=== PATIENT | female | born 1940 | race Caucasian/White ===

== ENCOUNTER → 2016-08-04 | Outpatient (CLI) | payer MEDICARE, MEDICAID | LOC: RAD 10:19 | DX: R13.13 Dysphagia, pharyngeal phase (principal); R13.14 Dysphagia, pharyngoesophageal phase; R47.02 Dysphasia | CPT/HCPCS: 71020 ==

== ENCOUNTER → 2016-10-10 | Outpatient (CLI) | payer MEDICARE, MEDICAID | LOC: RAD 09:58 | DX: M25.521 Pain in right elbow (principal); M25.522 Pain in left elbow; S09.90XA Unspecified injury of head, initial encounter; X58.XXXA Exposure to other specified factors, initial encounter | CPT/HCPCS: 70250 ==

== ENCOUNTER → 2016-10-16 | Outpatient (CLI) | payer MEDICARE, MEDICAID | LOC: WI 09:40 | DX: Z12.31 Encounter for screening mammogram for malignant neoplasm of breast (principal) | CPT/HCPCS: 77067; G0202 ==

== ENCOUNTER → 2017-01-29 | Outpatient (CLI) | payer MEDICARE, MEDICAID ==
--- NOTE | 2017-01-29 13:43 | RADIOLOGY REPORT (SQ) ---
EXAM DESCRIPTION: L SPINE 2 VIEWS COMPLETED DATE/TIME: 01/29/2017 1:05 pm REASON FOR STUDY: PAIN (R52) COMPARISON: 11/28/2010 NUMBER OF VIEWS: Two views. TECHNIQUE: AP and lateral radiographic images acquired of the lumbar spine. LIMITATIONS: None. FINDINGS: MINERALIZATION: Normal. SEGMENTATION: Normal. No transitional anatomy. ALIGNMENT: Normal. VERTEBRAE: 50% compression deformity L1 vertebral body, unchanged from 11/28/2010 DISCS: Disc space loss of height with vertebral body endplate sclerosis throughout the lumbar spine POSTERIOR ELEMENTS: Bilateral facet arthropathy throughout the lumbar spine most pronounced at L4-5 a nd L5-S1 HARDWARE: None in the spine. PARASPINAL SOFT TISSUES: Normal. PELVIS: Not included in the field of view. SI joints unremarkable. OTHER: No other significant finding. IMPRESSION: Chronic L1 50% compression deformity, similar compared to 2010. No new lumbar wedge compression deformity. Diffuse degenerative disc changes and facet arthropathy TECHNICAL DOCUMENTATION: JOB ID: [id number] [employer]- All Rights Reserved
== END ==
LOC: RAD 12:40
DX: R52 Pain, unspecified (principal)
CPT/HCPCS: 72100

== ENCOUNTER → 2017-02-22 | Outpatient (CLI) | payer MEDICARE, MEDICAID ==
--- NOTE | 2017-02-22 11:05 | RADIOLOGY REPORT (SQ) ---
EXAM DESCRIPTION: SKULL 1-3 VIEWS COMPLETED DATE/TIME: 02/22/2017 10:39 am REASON FOR STUDY: PAIN (R52) R52 PAIN, UNSPECIFIED COMPARISON: Skull films 10/10/2016, 03/23/2015, 02/27/2012 CT brain 02/27/2016, 03/31/2015, 04/16/2015 NUMBER OF VIEWS: Four view. TECHNIQUE: Images of the facial bones and calvarium acquired, AP, Dinah's, right lateral, left later al view. LIMITATIONS: None. FINDINGS: ORBITS: No fracture. No foreign body. SINUSES: No mucosal thickening. No air fluid levels. FACIAL BONES: No fracture. OTHER: No other significant finding. IMPRESSION: NO FOREIGN BODY OR FRACTURE OF THE FACIAL BONES. TECHNICAL DOCUMENTATION: JOB ID: [id number]- All Rights Reserved
== END ==
LOC: RAD 10:20
DX: R51 Headache (principal)
CPT/HCPCS: 70250

== ENCOUNTER 2017-10-17 13:22 | Observation (INO) | payer MEDICARE, MEDICAID ==
[2017-10-17] MEDS ORDERED: ASPIRIN 81 MG TABLET, CHEWABLE PO ONE (13:37)
--- NOTE | 2017-10-17 14:12 | ER Document Report ---
ED Cardiac - General Chief Complaint: Chest Pain > 30 Stated Complaint: CHEST PAIN Time Seen by Provider: 10/17/17 14:02 Notes: The patient is a 77-year-old female, past medical history hypertension, presents with 5 days of intermittent right lower chest pain that is worse when she takes deep breaths. She mentioned that she had a brief episode of left upper chest pain that has resolved. She had this 2 years ago and she thinks she had a negative heart cath at [facility]. Patient denies increased leg swelling, hemoptysis, fevers, back pain, nausea, vomiting, syncope, headache or radiation of pain. TRAVEL OUTSIDE OF THE [place] IN LAST 30 DAYS: No - Related Data Allergies/Adverse Reactions: oxytetracycline [From Terramycin] Allergy (Severe, Verified 02/27/16 08:31) Throat swells oxytetracycline HCl [From Terramycin] Allergy (Severe, Verified 02/27/16 08:31) Throat swells Penicillins Allergy (Severe, Verified 02/27/16 08:31) Swelling sulfamethoxazole [From Septra] Allergy (Severe, Verified 11/11/14 14:17) Headaches trimethoprim [From Septra] Allergy (Severe, Verified 11/11/14 14:17) Headaches acetaminophen [From Tylenol] Allergy (Unknown, Verified 11/11/14 14:17) aspirin [Aspirin] Allergy (Unknown, Verified 02/27/16 08:31) ? childhood reaction mycins Allergy (Severe, Uncoded 02/27/16 08:31) Hives PPD Allergy (Severe, Uncoded 11/05/14 08:55) Cardiac arrest Past Medical History - General Information source: Patient - Social History Smoking Status: Unknown if Ever Smoked Family History: Reviewed & Not Pertinent - Past Medical History Cardiac Medical History: Reports: Hx Congestive Heart Failure, Hx Heart Attack - Age 26, Hx Hypercholesterolemia, Hx Hypertension Pulmonary Medical History: Reports: Hx Asthma, Hx Pneumonia - yrs ago Denies: Hx Bronchitis, Hx COPD Neurological Medical History: Reports: Hx Cerebrovascular Accident - Age 26 ( Mini). Denies: Hx Seizures Renal/ Medical History: Reports: Hx Kidney Stones GI Medical History: Reports: Hx Diverticulitis Musculoskeltal Medical History: Reports Hx Arthritis - Legs & Back Past Surgical History: Reports: Hx Abdominal Surgery - exploratory, Hx Appendectomy, Hx Section, Hx Hysterectomy, Hx Tonsillectomy, Hx Tubal Ligation - Immunizations Hx Diphtheria, Pertussis, Tetanus Vaccination: Yes Hx Pneumococcal Vaccination: 07/08/12 Review of Systems - Review of Systems Notes: REVIEW OF SYSTEMS: CONSTITUTIONAL: -fevers, -chills EENT: -eye pain, -difficulty swallowing, -nasal congestion CARDIOVASCULAR: +chest pain, -syncope. RESPIRATORY: -cough, -SOB GASTROINTESTINAL: -abdominal pain, -nausea, -vomiting, -diarrhea GENITOURINARY: -dysuria, -hematuria MUSCULOSKELETAL: -back pain, -neck pain SKIN: -rash or skin lesions. HEMATOLOGIC: -easy bruising or bleeding. LYMPHATIC: -swollen, enlarged glands. NEUROLOGICAL: -altered mental status or loss of consciousness, -headache, - neurologic symptoms PSYCHIATRIC: -anxiety, -depression. ALL OTHER SYSTEMS REVIEWED AND NEGATIVE. Physical Exam - Vital signs Vitals: Resp Pulse Ox 17 94 10/17/17 13:48 10/17/17 13:48 - Notes Notes: PHYSICAL EXAMINATION: GENERAL: Well-appearing, well-nourished and in no acute distress. HEAD: Atraumatic, normocephalic. EYES: Pupils equal round and reactive to light, extraocular movements intact, sclera anicteric, conjunctiva are normal. ENT: nares patent, oropharynx clear without exudates. Moist mucous membranes. NECK: Normal range of motion, supple without lymphadenopathy LUNGS: Breath sounds clear to auscultation bilaterally and equal. No wheezes rales or rhonchi. HEART: Tachycardia, regular rhythm CHEST WALL: Tenderness over right anterior lower chest wall. ABDOMEN: Soft, nontender, normoactive bowel sounds. No guarding, no rebound. No masses appreciated. EXTREMITIES: Normal range of motion, no pitting or edema. No cyanosis. NEUROLOGICAL: Cranial nerves grossly intact. Normal speech, normal gait. Normal sensory and motor exams. PSYCH: Normal mood, normal affect. SKIN: Warm, Dry, normal turgor, no rashes or lesions noted. Course - Re-evaluation Re-evalutation: Pt with 5 days of right anterior chest pain. She has a new right bundle branch block and has sinus tachycardia on EKG. Will send a d-dimer to assess for PE and obtain a CTA if the d-dimer is positive. D-dimer is negative. First troponin is also negative. Her HEART score is 5 (2 for age, 2 for risk factors, 1 for EKG). Patient's primary care doctor is Dr. Almendarez. Last stress test was 2 years ago. Chest pain free. She requires observation for further evaluation of this chest pain. 10/17/17 16:[address] Bird (Hospitalist) and she has accepted the patient to Tele Obs. - Vital Signs Vital signs: Temp Pulse Resp BP Pulse Ox 18 120/77 95 10/17/17 16:04 10/17/17 16:04 10/17/17 16:04 - Laboratory Result Diagrams: 10/17/17 15:04 10/17/17 15:04 Laboratory results interpreted by me: 10/17/17 15:04 Chloride 97 L Glucose 111 H - Diagnostic Test Radiology reviewed: Image reviewed, Reports reviewed Radiology results interpreted by me: CXR: NAD - EKG Interpretation by Me EKG shows normal: Sinus rhythm, QRS Complexes, ST-T Waves Rate: Tachycardia [place]/QRS: RBBB When compared to previous EKG there are: Changes noted Additional EKG results interpreted by me: New RBBB. No STEMI. Discharge - Discharge Clinical Impression: Chest pain Qualifiers: Chest pain type: unspecified Qualified Code(s): R07.9 - Chest pain, unspecified Condition: Stable Disposition: ADMITTED OBSERVATION Admitting Provider: Hospitalist - [facility] Admitted: Telemetry Referrals: CLAUDIO WALTON MD [ACTIVE STAFF] - Follow up tomorrow WILBERT ALMENDAREZ MD [Primary Care Provider] - Follow up tomorrow
[2017-10-17 15:25] LABS: ABSOLUTE BASOPHILS # (AUTO) 0.1 10^3/uL (0.0-0.2); ABSOLUTE EOSINOPHILS # (AUTO) 0.2 10^3/uL (0.0-0.6); ABSOLUTE LYMPHOCYTES (AUTO) 1.3 10^3/uL (0.5-4.7); ABSOLUTE MONOCYTES (AUTO) 0.9 10^3/uL (0.1-1.4); ABSOLUTE NEUT (AUTO) 5.6 10^3/uL (1.7-8.2); BASOPHILS % (AUTO) 0.7 % (0-2); EOSINOPHILS % (AUTO) 2.9 % (0-6); HEMATOCRIT 42.6 % (36.0-47.0); HEMOGLOBIN 14.5 g/dL (12.0-15.5); LYMPHOCYTES % (AUTO) 15.9 % (13-45); MEAN CORPUSCULAR HEMOGLOBIN 29.5 pg (27.0-33.4); MEAN CORPUSCULAR HGB CONC 34.1 g/dL (32.0-36.0); MEAN CORPUSCULAR VOLUME 87 fl (80-97); MONOCYTES % (AUTO) 11.6 % (3-13); PLATELET COUNT 288 10^3/uL (150-450); RED BLOOD COUNT 4.92 10^6/uL (3.72-5.28); RED CELL DISTRIBUTION WIDTH 13.7 % (11.5-14.0); SEGMENTED NEUTROPHILS % (AUTO) 68.9 % (42-78); TOTAL CELLS COUNTED % (AUTO) 100 %; WHITE BLOOD COUNT 8.1 10^3/uL (4.0-10.5)
[2017-10-17] MEDS ORDERED: NORMAL SALINE 1000 ML 1,000 ML IV ONE (15:35)
[2017-10-17] MEDS ORDERED: LIDOCAINE 4% INJ/PF (40 MG/ML) 5 ML AMPUL NEB ONE (15:43)
[2017-10-17 15:46] LABS: ALANINE AMINOTRANSFERASE 42 U/L (9-52); ALBUMIN 4.3 g/dL (3.5-5.0); ALKALINE PHOSPHATASE 78 U/L (38-126); ANION GAP 14 (5-19); ASPARTATE AMINO TRANSFERASE 34 U/L (14-36); BILIRUBIN,DIRECT 0.4 mg/dL (0.0-0.4); BILIRUBIN,TOTAL 0.5 mg/dL (0.2-1.3); BLOOD UREA NITROGEN 16 mg/dL (7-20); CALCIUM 9.9 mg/dL (8.4-10.2); CARBON DIOXIDE 28 mmol/L (22-30); CHLORIDE 97 mmol/L (98-107); CREATINE KINASE 72 U/L (30-135); GLUCOSE 111 mg/dL (75-110); POTASSIUM 3.8 mmol/L (3.6-5.0); SODIUM 138.9 mmol/L (137-145); TOTAL PROTEIN 7.2 g/dL (6.3-8.2)
--- NOTE | 2017-10-17 15:57 | RADIOLOGY REPORT (SQ) ---
EXAM DESCRIPTION: CHEST SINGLE VIEW COMPLETED DATE/TIME: 10/17/2017 3:39 pm REASON FOR STUDY: chest pain COMPARISON: Chest films 08/04/2016, 03/11/2016 CT chest 12/07/2014 EXAM PARAMETERS: NUMBER OF VIEWS: One view. TECHNIQUE: Single frontal radiographic view of the chest acquired. RADIATION DOSE: NA LIMITATIONS: None. FINDINGS: LUNGS AND PLEURA: No opacities, masses or pneumothorax. No pleural effusion. MEDIASTINUM AND HILAR STRUCTURES: No masses. Contour normal. HEART AND VASCULAR STRUCTURES: Heart normal in size. Normal vasculature. BONES: No acute findings. HARDWARE: None in the chest. OTHER: No other significant finding. IMPRESSION: NO ACUTE RADIOGRAPHIC FINDING IN THE CHEST. TECHNICAL DOCUMENTATION: JOB ID: [id number] [employer]- All Rights Reserved Reading location - IP/workstation name: [email or web address]
[2017-10-17 15:58] LABS: CREATINE KINASE MB 1.88 ng/mL (<4.55); TROPONIN I < 0.012 ng/mL
[2017-10-17 16:32] LABS: AMORPHOUS SEDIMENT,URINE TRACE /HPF; APPEARANCE,URINE SLIGHTLY-CLOUDY; BILIRUBIN,URINE NEGATIVE (NEGATIVE); COLOR,URINE YELLOW; GLUCOSE, URINE NEGATIVE (NEGATIVE); KETONES,URINE NEGATIVE (NEGATIVE); LEUKOCYTE ESTERASE,URINE NEGATIVE (NEGATIVE); NITRITE,URINE NEGATIVE (NEGATIVE); PROTEIN,URINE NEGATIVE (NEGATIVE); URINE SPECIFIC GRAVITY 1.014; UROBILINOGEN,URINE NEGATIVE mg/dL (<2.0)
[2017-10-17] MEDS ORDERED: CLOPIDOGREL BISULFATE 75 MG TABLET PO SCH (18:00)
--- NOTE | 2017-10-17 18:00 | PDOC H&P ---
History of Present Illness Admission Date/PCP: 10/17/17 17:20 WILBERT ALMENDAREZ MD Patient complains of: chset pains History of Present Illness: JASON MCDONNELL is a 77 year old female with a known history of CHF, CAD , HTN coming to the ED with a 5 days history of chest pain Pain is precordial intermittent somewhat pleuritic in nature Upon evaluation in the ED patient has a new RBBB on EKG ; cardiac enzymes are negative and D Dimer is low at 0.3 Patient is allergic to NTG She was subsequently admitted under Hospitalist's service Past Medical History Cardiac Medical History: Reports: Congestive Heart Failure, Myocardial Infarction - Age 26, Hyperlipidema, Hypertension Cardiac History Note: last stress test at Dr Padilla's office 2 years ago was negative Pulmonary Medical History: Reports: Asthma, Pneumonia - yrs ago Denies: Bronchitis, Chronic Obstructive Pulmonary Disease (COPD) Neurological Medical History: Denies: Seizures GI Medical History: Reports: Diverticulitis Musculoskeltal Medical History: Reports: Arthritis - Legs & Back Hematology: Denies: Anemia Past Surgical History Past Surgical History: Reports: Appendectomy, Section, Hysterectomy, Tonsillectomy, Tubal Ligation Social History Information Source: Patient Lives with: Alone Smoking Status: Never Smoker Frequency of Alcohol Use: None Hx Recreational Drug Use: No - Advance Directive Resuscitation Status: Full Code Surrogate healthcare decision maker:: none Family History Family History: no history of CAD Parental Family History Reviewed: Yes Children Family History Reviewed: Yes Sibling(s) Family History Reviewed.: Yes Medication/Allergy Home Medications: Multivitamin with Iron [One Daily Multivitamin] 1 each PO DAILY 10/21/14 Esomeprazole Magnesium [Nexium] 40 mg PO BID 11/11/14 Diazepam [Valium 5 Mg Tablet] 5 mg PO Q8HP PRN #10 tablet 04/16/15 Oxycodone HCl [Roxicodone] 5 mg PO Q4HP PRN #14 tablet 04/16/15 Prednisone 40 mg PO DAILY #10 tablet 05/30/15 Ranitidine HCl [Zantac 150 mg Tablet] 150 mg PO BID #60 tablet 05/30/15 Ibuprofen [Motrin 400 mg Tablet] 400 mg PO MEALS #14 tablet 09/30/15 Lidocaine [Lidoderm 5% (700 mg) Transdermal Patch] 1 patch TP DAILY #10 adh..patch 09/30/15 Prednisone [Deltasone] 40 mg PO DAILY 5 Days tablet 09/30/15 Albuterol Sulfate [Proair HFA] 8.5 gm IH Q4HP PRN #2 hfa.aer.ad 02/27/16 Butalbital/Aspirin/Caffeine [Fiorinal 50-325-40 mg Capsule] 1 cap PO Q4 PRN #20 cap 02/27/16 Prednisone [Deltasone 10 mg Tablet] 10 mg PO ASDIR PRN #21 tablet 02/27/16 Allergies/Adverse Reactions: oxytetracycline [From Terramycin] Allergy (Severe, Verified 02/27/16 08:31) Throat swells oxytetracycline HCl [From Terramycin] Allergy (Severe, Verified 02/27/16 08:31) Throat swells Penicillins Allergy (Severe, Verified 02/27/16 08:31) Swelling sulfamethoxazole [From Septra] Allergy (Severe, Verified 11/11/14 14:17) Headaches trimethoprim [From Septra] Allergy (Severe, Verified 11/11/14 14:17) Headaches acetaminophen [From Tylenol] Allergy (Unknown, Verified 11/11/14 14:17) aspirin [Aspirin] Allergy (Unknown, Verified 02/27/16 08:31) ? childhood reaction mycins Allergy (Severe, Uncoded 02/27/16 08:31) Hives PPD Allergy (Severe, Uncoded 11/05/14 08:55) Cardiac arrest Review of Systems Constitutional: ABSENT: chills, fever(s), headache(s), weight gain, weight loss Eyes: ABSENT: visual disturbances Cardiovascular: PRESENT: as per HPI Respiratory: ABSENT: cough, hemoptysis Gastrointestinal: ABSENT: abdominal pain, constipation, diarrhea, hematemesis, hematochezia, nausea, vomiting Genitourinary: ABSENT: dysuria, hematuria Musculoskeletal: ABSENT: joint swelling Neurological: ABSENT: abnormal gait, abnormal speech, confusion, dizziness, focal weakness, syncope Psychiatric: ABSENT: anxiety, depression, homidical ideation, suicidal ideation Physical Exam Vital Signs: Temp Pulse Resp BP Pulse Ox 18 120/77 95 10/17/17 16:04 10/17/17 16:04 10/17/17 16:04 General appearance: PRESENT: no acute distress, well-developed, well-nourished Head exam: PRESENT: atraumatic, normocephalic Eye exam: PRESENT: conjunctiva pink, EOMI, PERRLA. ABSENT: scleral icterus Ear exam: PRESENT: normal external ear exam Mouth exam: PRESENT: moist, tongue midline Neck exam: ABSENT: carotid bruit, JVD, lymphadenopathy, thyromegaly Respiratory exam: PRESENT: clear to auscultation kwaku. ABSENT: rales, rhonchi, wheezes Cardiovascular exam: PRESENT: RRR. ABSENT: diastolic murmur, rubs, systolic murmur Pulses: PRESENT: normal dorsalis pedis pul Vascular exam: PRESENT: normal capillary refill GI/Abdominal exam: PRESENT: normal bowel sounds, soft. ABSENT: distended, guarding, mass, organolmegaly, rebound, tenderness Rectal exam: PRESENT: deferred Extremities exam: PRESENT: full ROM. ABSENT: calf tenderness, clubbing, pedal edema Neurological exam: PRESENT: alert, awake, oriented to person, oriented to place , oriented to time, oriented to situation, CN II-XII grossly intact. ABSENT: motor sensory deficit Psychiatric exam: PRESENT: appropriate affect, normal mood. ABSENT: homicidal ideation, suicidal ideation Skin exam: PRESENT: dry, intact, warm. ABSENT: cyanosis, rash Results Laboratory Results: 10/17/17 10/17/17 10/17/17 15:04 15:04 15:04 WBC 8.1 Hgb 14.5 Hct 42.6 D-Dimer 0.31 Sodium 138.9 Potassium 3.8 Chloride 97 L Carbon Dioxide 28 BUN 16 Creatinine 0.71 CK-MB (CK-2) Troponin I 10/17/17 15:04 WBC Hgb Hct D-Dimer Sodium Potassium Chloride Carbon Dioxide BUN Creatinine CK-MB (CK-2) 1.88 Troponin I < 0.012 EKG Comments: SINUS TACHYCARDIA [RLPFB] . RBBB AND LPFB [IMI62] . INFERIOR INFARCT, AGE INDETERMINATE [AMI61] . ANTERIOR INFARCT, AGE INDETERMINATE Impressions: Chest X-Ray 10/17/17 13:37 IMPRESSION: NO ACUTE RADIOGRAPHIC FINDING IN THE CHEST. Assessment & Plan - Diagnosis (1) Chest pain Qualifiers: Chest pain type: unspecified Qualified Code(s): R07.9 - Chest pain, unspecified Is this a current diagnosis for this admission?: Yes Plan: etiology unclear Patient has had chest pain for 5 days and has negative cardiac enzymes unlikely acute coronary syndrome but we will monitor the patient and obtain serial cardiac enzymes CTA chest will be ordered although d dimer is low to rule out PE and pneumonia Echo in am to evaluate to exclude pericarditis - pericardial effusion -and assess left ventricular function Cardiology consult with Dr Burns in am Treat patient symptomatically with small doses of morphine IV (2) RBBB Is this a current diagnosis for this admission?: Yes - Time Time Spent with patient: admit the patient to telemetry for observation Time Spent: 50 to 70 Minutes
[2017-10-17] MEDS ORDERED: ENOXAPARIN SODIUM INJ 40 MG/0.4 ML DISP.SYRIN SUBCUT ONE (18:30)
--- NOTE | 2017-10-17 20:08 | RADIOLOGY REPORT (SQ) ---
EXAM DESCRIPTION: CTA CHEST COMPLETED DATE/TIME: 10/17/2017 7:54 pm REASON FOR STUDY: chest pains new RBBB E78.2 MIXED HYPERLIPIDEMIA R07.9 CHEST PAIN, UNSPECIFIED COMPARISON: 12/07/2014. TECHNIQUE: CT scan of the chest performed using helical scanning technique with dynamic intravenous contrast injection. Images reviewed with lung, soft tissue and bone windows. Reconstructed coronal and sagittal MPR images reviewed. Additional 3 dimensional post-processing performed to develop Maximal Intensity Projection images (NH P). All images stored on PACS. All CT scanners at this facility use dose modulation, iterative reconstruction, and/or weight based d osing when appropriate to reduce radiation dose to as low as reasonably achievable (ALARA). [facility]: Dose Right [facility]: CareDose [facility]: Dose Right [facility]: Teradose 4D [facility]: [email or web address] CONTRAST TYPE AND DOSE: contrast/concentration: Isovue 370.00 mg/ml; Total Contrast Delivered: 82.0 ml; Total Saline Delivered: 110.0 ml Contrast bolus optimized for the pulmonary arteries. Not diagnostic for the aorta. RENAL FUNCTION: BUN 16 creatinine 0.71. RADIATION DOSE: CT Rad equipment meets quality standard of care and radiation dose reduction techniq ues were employed. CTDIvol: 28.5 - 37.5 mGy. DLP: 1024 mGy-cm. . LIMITATIONS: None. FINDINGS: LUNGS AND PLEURA: Mild scarring. Subcentimeter nodules in the right lung are unchanged si nce 2015. No infiltrates. No pneumothorax. No pleural effusions, calcifications. AORTA AND GREAT VESSELS: No aneurysm. Contrast bolus not optimized for the aorta. HEART: No pericardial effusion. No significant coronary artery calcifications. PULMONARY ARTERIES: No emboli visualized in the main pulmonary arteries or the segmental branches. HILAR AND MEDIASTINAL STRUCTURES: No identified masses or abnormal nodes. HARDWARE: None in the chest. UPPER ABDOMEN: No significant findings. Limited exam. THYROID AND OTHER SOFT TISSUES: No masses. No adenopathy. BONES: No acute or significant finding. 3D MIPS: Confirm above findings. OTHER: No other significant finding. IMPRESSION: NORMAL CTA OF THE CHEST. NO PULMONARY EMBOLI. COMMENT: Quality ID # [id number]: Final reports with documentation of one or more dose reduction techniques (e.g., Automated exposure control, adjustment of the mA and/or kV according to patient size, use of iterative reconstruction technique) TECHNICAL DOCUMENTATION: JOB ID: [id number] [employer]- All Rights Reserved Reading location - IP/workstation name: [email or web address]
[2017-10-17] MEDS: MORPHINE SULFATE 10 MG/ML INJ IV PRN (20:57)
[2017-10-17] MEDS ORDERED: ATORVASTATIN CALCIUM 80 MG TABLET PO SCH (22:00)
--- NOTE | 2017-10-17 22:56 | EKG REPORT ---
SEVERITY:- ABNORMAL ECG - SINUS TACHYCARDIA RBBB AND LPFB INFERIOR INFARCT, AGE INDETERMINATE ANTERIOR INFARCT, AGE INDETERMINATE : Confirmed by: Brennan Palma 17-Oct-2017 19:55:15
[2017-10-18] MEDS: MORPHINE SULFATE 10 MG/ML INJ IV PRN ×2 (01:35→08:21)
[2017-10-18] MEDS ORDERED: ENOXAPARIN SODIUM INJ 40 MG/0.4 ML DISP.SYRIN SUBCUT SCH (10:00)
--- NOTE | 2017-10-18 10:10 | EKG REPORT ---
SEVERITY:- ABNORMAL ECG - SINUS RHYTHM INFERIOR INFARCT, OLD ANTERIOR INFARCT, AGE INDETERMINATE PROLONGED QT INTERVAL : Confirmed by: Brennan Palma 18-Oct-2017 10:10:03
[2017-10-18 10:11] VITALS: BP 126/87
--- NOTE | 2017-10-18 22:44 | CONSULTATION REPORT E ---
Consultation Report NAME: JASON MCDONNELL : 1940 AGE: 77Y DATE: 10/18/2017 ROOM: 535 A TO: CLAUDIO WALTON M.D. FROM: BILLY HAY M.D. Requesting Physician REASON FOR CONSULTATION: Chest pain. HISTORY OF PRESENT ILLNESS: The patient is a 77-year-old female with known history of hypertension, history of a TIA in the remote past, and history of myocardial infarction in the remote past with no clear cut anginal symptoms, states since the past 5 years she has constant pain in the lower precordial area and the left front of the chest in the lower end. The chest pain is not related to exertion and does not increase with exertion, but if she moves her torso or if she touches the area where she has pain this reproduces the pain and increases the pain. Hence, clearly musculoskeletal. She denies any palpitations. There is no PND, orthopnea, wheezing, cough, or sputum production. PAST MEDICAL HISTORY: The patient claims that when she was age 26 she had a TIA and at that time she also had a myocardial infarction. She has a history of hypertension. She takes that she has a history of asthma and takes inhalers p.r.n. She denies any history of COPD. There is no history of sleep apnea. There is no recurrence of TIA and no history of CVA. No history of headaches, migraines, or seizures. No history of diabetes mellitus. No history of thyroid disease. No history of chronic kidney disease. History of renal stones present. PAST SURGICAL HISTORY: Positive for appendectomy, tonsillectomy, adenoidectomy, , surgery for ectopic tubal , hysterectomy. She has had bilateral tubal ligation. SOCIAL HISTORY: The patient states that she lives with a younger gentleman who helps her. She does not smoke. There is no history of EtOH abuse. ALLERGIES: She is allergic to OXYTETRACYCLINE, OXY, PENICILLIN, SULFAMETHOXAZOLE, ACETAMINOPHEN, ASPIRIN, ALL MYCINS, with MYCIN SHE HAS HIVES. She also has severe allergy to PPD, WHICH LED HER TO HAVE A CARDIAC ARREST. MEDICATIONS: Although she states she is allergic to ASPIRIN, she has been given aspirin 325 mg p.o. x1. She had a normal saline bolus of 1000 mL. She is on morphine sulfate 2 mg IV q.3 hours p.r.n. She is on Lovenox 40 mg continuously x1. She is on atorvastatin 80 mg p.o. at bedtime. She is on Lovenox 40 mg subcutaneously daily. She is on Plavix 75 mg p.o. daily. She is on Nexium DR 20 mg p.o. daily, atenolol 50 mg p.o. q. daily. She is on triamterene/hydrochlorothiazide 75-50 mg 1 tablet p.o. daily. ADVANCE DIRECTIVE: The patient is a full code. She states that she no living relative and the younger gentleman who takes care of her and helps her out is her surrogate healthcare decision maker. FAMILY HISTORY: Positive for coronary artery disease and hypertension. REVIEW OF SYSTEMS: CONSTITUTIONAL: Denies any fever, chills, or rigors. HEAD: Denies headaches or head injury. EYES: No history of amblyopia or diplopia. No history of amaurosis fugax. EARS: No history of hearing loss. No history of tinnitus. No history of recurrent ear infections. NOSE: No history of hay fever. No history of nosebleeds. No history of nasal polyps. MOUTH: No history of altered taste sensation. No history of ulcers in the mouth. No history of bleeding from the gums. THROAT: There is no odynophagia or dysphagia. No history of recurrent sore throats. SKIN: There are no skin rashes. There is no pruritus. There is no petechiae or ecchymosis. There is no skin cancer. There is no yellowish discoloration of the skin. NECK: Denies any swelling in the neck or pain in the neck. LUNGS: A history of mild asthma. No recent asthmatic attacks. No history of COPD. No history of sleep apnea. No history of pulmonary embolism. No history of pleuritic chest pain. The patient does have chest wall pain which is reproducible as mentioned earlier. CARDIAC: Claims that when she was 26 years old she has had an NH. No angina symptoms since then. The patient's noncardiac chest pain as mentioned earlier. Remote history of congestive heart failure, none recently. She had a stress in or around 2 years ago which was negative for ischemia or NH. There is no history of palpitations, cardiac arrhythmia, or syncope. No history of leg edema. No history of PND, orthopnea. GASTROINTESTINAL: History of GERD present. No history of peptic ulcer disease. No history of jaundice. No history of hepatitis. No history of GI bleed. No history of altered bowel movements. MUSCULOSKELETAL: A history of arthritis, but no collagen vascular disease. RENAL: Past history of renal stones. No history of chronic kidney disease. No symptom of UTI. ENDOCRINE: No history of diabetes mellitus, no history of polydipsia or polyuria. No history of heat or cold intolerance. No history of thyroid problems. CENTRAL NERVOUS SYSTEM: Remote history of TIA when she was 26 years old, no recurrence. No CVA. No history of headaches, migraines, or seizures. No history of gait imbalance. PSYCHIATRIC: No history of anxiety or depression. No suicidal ideation. VASCULAR: No history of calf or buttock claudication. No history of DVT. HEMATOLOGICAL: No history of bleeding diathesis. No history of clotting disorders. PHYSICAL EXAMINATION: GENERAL: On examination the patient is mild to moderately obese but well-groomed. VITAL SIGNS: She is afebrile with a temperature of 98.6 degrees Fahrenheit, pulse is 99 beats per minute, blood pressure is 126/87, respirations are 14 per minute, O2 saturations are 96% on room air. HEENT: Head is atraumatic, normocephalic. Eyes: Pupils are equal, round and regular, reactive to light and accommodation. External ocular movements are normal. There is no conjunctival pallor. There is no scleral icterus. Ears: Tympanic membranes are intact. External auditory canals are clear. Nose: There is no deviation of nasal septum, there is no inflammation of the nasal mucous membranes Mouth: Mucous membranes of the mouth are moist, tongue is moist, there are no ulcers, there is no bleeding from the gums. Throat: There is no redness of the oropharynx, there are no exudates. SKIN: There are no skin rashes. There is no petechiae or ecchymosis. There are no skin lesions. NECK: Supple. There is no JVD. There is no lymphadenopathy. There is no goiter. Carotids are equal. There is no bruit. Trachea is central. LUNGS: Clear to auscultation and percussion. On palpating the lower left precordial area and also the lower front of the middle of the chest the patient has reproducible chest pain. Hence, clearly the patient's chest pain is noncardiac. HEART: S1 and S2 is heard. There is no S3 gallop. There is no S4 gallop. There is a systolic murmur in the left sternal border and the apex. There is no rub. ABDOMEN: Soft, nontender. There is no hepatosplenomegaly. Bowel sounds are well heard. There are no tender areas or masses. EXTREMITIES: Femorals are slightly diminished. Femorals are deep. There are no femoral bruits. Leg pulses are diminished. There is no pedal edema. There is no cyanosis or clubbing. There is no DVT or cellulitis. There is no calf tenderness. CENTRAL NERVOUS SYSTEM: The patient is conscious, awake, alert and oriented x3 with no focal deficits. PSYCHIATRIC: The patient's judgment and insight are intact. Her affect is normal. DIAGNOSTICS: The patient's EKG shows possible old anterior NH, possible lead placement, sinus rhythm and cannot exclude old inferior wall NH. The patient's chest x-ray shows no acute findings. The patient's chest/abdomen CTA shows normal CTA of the chest with no pulmonary emboli. The patient's laboratory data show a white count of 8100, hemoglobin of 14.5, hematocrit is 42.6, platelet count is 288,000. The patient's D-dimer was 0.31. The patient's sodium is 138.9, potassium 3.8, chloride is 97, CO2 is 28. The patient's BUN is 16, creatinine 0.71, GFR is greater than 60, glucose is 111. The patient's calcium is 9.9. Liver function tests are normal. Her cardiac enzymes have been negative x2. Her CPK-MB is also negative. Has also a troponin I negative x2. Her total protein was 7.2, albumin is 4.3. Her liver function tests are normal. IMPRESSION: 1. CHEST WALL PAIN, NONCARDIAC. No evidence of acute ischemia on EKG. No evidence of NH with cardiac enzymes. The patient reassured. Would recommend an *------* and *------* chest wall. Note that the patient denies lifting any heavy weights or strenuous activity. 2. CORONARY ARTERY DISEASE BY HISTORY. History of NH at age 26, doubt. Note 2 years ago the patient had a negative stress test. 3. HISTORY OF CHF IN THE PAST, NO RECURRENCE IN A LONG TIME. 4. HYPERTENSION. 5. HYPERLIPIDEMIA. 6. MILD ASTHMA. 7. SYSTOLIC MURMUR. RECOMMENDATIONS: Would recommend discharging the patient. We will follow the patient in the office. In view of the patient not being a very good historian and in view of the patient's age, hypertension, and hyperlipidemia and past history of CAD as per the patient, due to these risk factors would recommend that the patient have an exercise treadmill Cardiolite or an IV Lexiscan Cardiolite stress test as an outpatient. Also would recommend that the patient have an echocardiogram which can be done as an outpatient to assess the murmur and the patient's CAD to see if there is any wall motion abnormality and in view of the patient's history of hypertension. Note the patient's medications have been reviewed. The patient has been reassured. Discussed the case with the attending physician on the case. The patient has been given my telephone number since she has been seen in the office about a year ago and she has not followed up since then. The patient was given my cell phone number to call me if she has any problems. We will schedule an appointment for the patient to see me in the office. TIME SPENT: Note 45 minutes spent on this patient with more than 50% of the time spent on direct patient care. Medical decision making is of moderate complexity. DICTATING PHYSICIAN: CLAUDIO WALTON M.D. [id number] SARAHY#: [id number] ID: [id number] JOB#: [id number] ACCT: [id number] cc:CLAUDIO WALTON M.D. >
--- NOTE | 2017-10-20 07:40 | PDOC DISCHARGE SUMMARY ---
General - Admit/Disc Date/PCP Admission Date/Primary Care Provider: 10/17/17 17:20 WILBERT ALMENDAREZ MD Discharge Date: 10/18/17 - Discharge Diagnosis (1) Chest pain Is this a current diagnosis for this admission?: Yes (2) RBBB Is this a current diagnosis for this admission?: Yes - Additional Information Resuscitation Status: Full Code Discharge Diet: Cardiac Discharge Activity: Activity As Tolerated Home Medications: Atenolol [Tenormin 50 mg Tablet] 50 mg PO DAILY 10/17/17 Atorvastatin Calcium [Lipitor 40 mg Tablet] 40 mg PO QHS 10/17/17 Esomeprazole Magnesium 20 mg PO DAILY 10/17/17 Triamterene/Hydrochlorothiazid [Triamterene-Hctz 75-50 mg Tab] 1 tab PO DAILY History of Present Illness Patient complains of: chest pain History of Present Illness: JASON MCDONNELL is a 77 year old female with a known history of CHF, CAD , HTN coming to the ED with a 5 days history of chest pain Pain is precordial intermittent somewhat pleuritic in nature Upon evaluation in the ED patient has a new RBBB on EKG ; cardiac enzymes are negative and D Dimer is low at 0.3 Patient is allergic to NTG She was subsequently admitted under Hospitalist's service Hospital Course Hospital Course: chest pain was reproducile with tenderness of chest wall CTA chest was negative for PE serial troponins were normal repeat EKG was unchanged 10/17/17 10/17/17 15:04 17:35 Troponin I < 0.012 < 0.012 Patient was referred to cardiology at discharge for stress test as outpatient Physical Exam Vital Signs: Temp Pulse Resp BP Pulse Ox 98.6 F 99 14 126/87 H 96 10/18/17 10:00 10/18/17 10:00 10/18/17 10:00 10/18/17 08:58 10/18/17 10:00 Intake & Output 10/19/17 10/20/17 10/21/17 00:59 00:59 00:59 Intake Total 234 Balance 234 Weight 101.4 kg General appearance: PRESENT: no acute distress, well-developed, well-nourished Head exam: PRESENT: atraumatic, normocephalic Eye exam: PRESENT: conjunctiva pink, EOMI, PERRLA. ABSENT: scleral icterus Ear exam: PRESENT: normal external ear exam Mouth exam: PRESENT: moist, tongue midline Neck exam: ABSENT: carotid bruit, JVD, lymphadenopathy, thyromegaly Respiratory exam: PRESENT: clear to auscultation kwaku. ABSENT: rales, rhonchi, wheezes Cardiovascular exam: PRESENT: RRR. ABSENT: diastolic murmur, rubs, systolic murmur Pulses: PRESENT: normal dorsalis pedis pul Vascular exam: PRESENT: normal capillary refill GI/Abdominal exam: PRESENT: normal bowel sounds, soft. ABSENT: distended, guarding, mass, organolmegaly, rebound, tenderness Rectal exam: PRESENT: deferred Extremities exam: PRESENT: full ROM. ABSENT: calf tenderness, clubbing, pedal edema Neurological exam: PRESENT: alert, awake, oriented to person, oriented to place , oriented to time, oriented to situation, CN II-XII grossly intact. ABSENT: motor sensory deficit Psychiatric exam: PRESENT: appropriate affect, normal mood. ABSENT: homicidal ideation, suicidal ideation Skin exam: PRESENT: dry, intact, warm. ABSENT: cyanosis, rash Results Laboratory Results: 10/17/17 10/17/17 10/17/17 17:35 17:35 17:35 Creatine Kinase 69 CK-MB (CK-2) 1.82 Troponin I < 0.012 Impressions: Chest X-Ray 10/17/17 13:37 IMPRESSION: NO ACUTE RADIOGRAPHIC FINDING IN THE CHEST. Chest/Abdomen CTA 10/17/17 17:44 IMPRESSION: NORMAL CTA OF THE CHEST. NO PULMONARY EMBOLI. Qualifiers - * PATIENT BEING DISCHARGED WITH ANY OF THE FOLLOWING DIAGNOSIS: No
== END 2017-10-18 12:35 | disposition home or self-care (01) ==
LOC: ER 13:22 → EH 17:20 → 5 19:30
PROVIDERS: ADMIT Internal Medicine; ATTEND Internal Medicine
DX: R07.2 Precordial pain (principal); I45.10 Unspecified right bundle-branch block; I25.10 Atherosclerotic heart disease of native coronary artery without angina pectoris; I10 Essential (primary) hypertension; J45.909 Unspecified asthma, uncomplicated; E78.5 Hyperlipidemia, unspecified; R01.1 Cardiac murmur, unspecified; I25.2 Old myocardial infarction; R00.0 Tachycardia, unspecified; Z79.899 Other long term (current) drug therapy; Z88.8 Allergy status to other drugs, medicaments and biological substances; Z86.73 Personal history of transient ischemic attack (TIA), and cerebral infarction without residual deficits; Z90.49 Acquired absence of other specified parts of digestive tract; Z86.74 Personal history of sudden cardiac arrest; Z79.02 Long term (current) use of antithrombotics/antiplatelets; Z82.49 Family history of ischemic heart disease and other diseases of the circulatory system; Z87.01 Personal history of pneumonia (recurrent)
CPT/HCPCS: 93005 ×2; 99285; 96360; 36415; 82553; 82550; 85025; 80053; 81001; 84484; 85379; 71045; 71275; 93010 ×2; G0378 ×3; J2270 ×2; J1650; J7030; A9270 ×2

== ENCOUNTER 2017-11-02 19:12 | Emergency (ER) | payer MEDICARE, MEDICAID ==
[2017-11-02] MEDS ORDERED: METOCLOPRAMIDE HCL ORAL SOLN 10 MG/10 ML UDCUP PO ONE (19:49)
[2017-11-02] MEDS ORDERED: LIDOCAINE 2% VISCOUS SOLN 20 ML UDCUP PO ONE (19:49)
[2017-11-02] MEDS ORDERED: MAG HYDROX/AL HYDROX/SIMETH SUSP 30 ML UDCUP PO ONE (19:49)
--- NOTE | 2017-11-02 19:55 | ER Document Report ---
ED General - General Chief Complaint: Sore Throat Stated Complaint: TROUBLE BREATHING Time Seen by Provider: 11/02/17 19:16 Notes: Patient is a 77-year-old woman with medical history as recorded who presents with concerns of having difficulty swallowing food just prior to arrival. The patient states that she had eaten and felt like something was stuck in her throat. She states that she drank an entire cup of tea just prior to arrival of EMS and now no longer has any additional symptoms. She notes that she was able to tolerate fluids without difficulty. She has not vomited. She denies any difficulty breathing. She reports a long-standing history of esophageal strictures and needs for esophageal dilation. She notes that there is nothing new or different about the sensation which she experienced today other than that it did persist longer than normal. At the time of my assessment she denies any symptoms. Nothing seemed to improve or worsen her symptoms and they were present other than drinking tea which she states she feels like it made everything better. TRAVEL OUTSIDE OF THE [place] IN LAST 30 DAYS: No - Related Data Allergies/Adverse Reactions: oxytetracycline [From Terramycin] Allergy (Severe, Verified 11/02/17 19:44) Throat swells oxytetracycline HCl [From Terramycin] Allergy (Severe, Verified 11/02/17 19:44) Throat swells Penicillins Allergy (Severe, Verified 11/02/17 19:44) Swelling sulfamethoxazole [From Septra] Allergy (Severe, Verified 11/02/17 19:44) Headaches trimethoprim [From Septra] Allergy (Severe, Verified 11/02/17 19:44) Headaches acetaminophen [From Tylenol] Allergy (Unknown, Verified 11/02/17 19:44) aspirin [Aspirin] Allergy (Unknown, Verified 11/02/17 19:44) ? childhood reaction mycins Allergy (Severe, Uncoded 11/02/17 19:44) Hives PPD Allergy (Severe, Uncoded 11/02/17 19:44) Cardiac arrest Past Medical History - General Information source: Patient - Social History Smoking Status: Never Smoker Frequency of alcohol use: None Drug Abuse: None Lives with: Alone Family History: Reviewed & Not Pertinent - Past Medical History Cardiac Medical History: Reports: Hx Congestive Heart Failure, Hx Heart Attack - Age 26, Hx Hypercholesterolemia, Hx Hypertension Pulmonary Medical History: Reports: Hx Asthma, Hx Pneumonia - yrs ago Denies: Hx Bronchitis, Hx COPD Neurological Medical History: Reports: Hx Cerebrovascular Accident - Age 26 ( Mini). Denies: Hx Seizures Renal/ Medical History: Reports: Hx Kidney Stones. Denies: Hx Peritoneal Dialysis GI Medical History: Reports: Hx Diverticulitis Musculoskeltal Medical History: Reports Hx Arthritis - Legs & Back Past Surgical History: Reports: Hx Abdominal Surgery - exploratory, Hx Appendectomy, Hx Section, Hx Hysterectomy, Hx Tonsillectomy, Hx Tubal Ligation - Immunizations Hx Diphtheria, Pertussis, Tetanus Vaccination: Yes Hx Pneumococcal Vaccination: 03/04/17 Review of Systems - Review of Systems Notes: Constitutional: Negative for fever. HENT: Negative for sore throat. Eyes: Negative for visual changes. Cardiovascular: Negative for chest pain. Respiratory: Negative for shortness of breath. Gastrointestinal: Negative for abdominal pain, vomiting or diarrhea. Genitourinary: Negative for dysuria. Musculoskeletal: Negative for back pain. Skin: Negative for rash. Neurological: Negative for headaches, weakness or numbness. 10 point ROS negative except as marked above and in HPI. Physical Exam - Vital signs Vitals: Temp Pulse Resp BP Pulse Ox 98.2 F 108 H 16 143/78 H 96 11/02/17 19:13 11/02/17 19:13 11/02/17 19:13 11/02/17 19:13 11/02/17 19:13 Interpretation: Tachycardic Notes: PHYSICAL EXAMINATION: GENERAL: Well-appearing, well-nourished and in no acute distress. HEAD: Atraumatic, normocephalic. EYES: Pupils equal round and reactive to light, extraocular movements intact, sclera anicteric, conjunctiva are normal. ENT: nares patent, oropharynx clear without exudates. Moist mucous membranes. NECK: Normal range of motion, supple without lymphadenopathy LUNGS: Breath sounds clear to auscultation bilaterally and equal. No wheezes rales or rhonchi. HEART: Regular rate and rhythm without murmurs ABDOMEN: Soft, nontender, normoactive bowel sounds. No guarding, no rebound. No masses appreciated. EXTREMITIES: Normal range of motion, no pitting or edema. No cyanosis. NEUROLOGICAL: No focal neurological deficits. Moves all extremities spontaneously and on command. PSYCH: Normal mood, normal affect. SKIN: Warm, Dry, normal turgor, no rashes or lesions noted. Course - Re-evaluation Re-evalutation: 11/02/17 19:50 Patient presents with complaints of an episode of difficulty swallowing after eating which she states is now resolved after drinking a cup of tea. She denies any symptoms at the time of my assessment. Vitals within normal limits at time of assessment. She denies any shortness of breath, difficulty swallowing as tolerated oral intake here in the emergency department without any difficulty. She has a history of esophageal strictures and has required dilations multiple times in the past. She states that this is been an ongoing issue and it was nothing different about today except that it did not go away as fast as it usually does. She is very clear to deny any chest pain, neck pain , headache, weakness or numbness. She denies any additional concerns or complaints and would like to go home. At this time will discharge with return precautions and follow-up recommendations. Verbal discharge instructions given a the bedside and opportunity for questions given. Medication warnings reviewed. Patient is in agreement with this plan and has verbalized understanding of return precautions and the need for primary care follow-up in the next 24-72 hours. - Vital Signs Vital signs: Temp Pulse Resp BP Pulse Ox 97.5 F 102 H 19 153/86 H 96 11/02/17 20:42 11/02/17 20:42 11/02/17 20:42 11/02/17 20:42 11/02/17 20:42 Discharge - Discharge Clinical Impression: Choking sensation Condition: Good Disposition: HOME, SELF-CARE Additional Instructions: Please return if you have any difficulty breathing, swallowing, developed chest pain, or any other symptoms that are worrisome to you. Follow-up with your general doctor and GI doctor regarding today's concerns. Referrals: WILBERT ALMENDAREZ MD [Primary Care Provider] - Follow up as needed
[2017-11-02 20:43] VITALS: BP 153/86
== END 2017-11-02 20:43 | disposition home or self-care (01) ==
LOC: ER 19:12
DX: R09.89 Other specified symptoms and signs involving the circulatory and respiratory systems (principal); J02.9 Acute pharyngitis, unspecified; R13.10 Dysphagia, unspecified; I25.2 Old myocardial infarction; I10 Essential (primary) hypertension; J44.9 Chronic obstructive pulmonary disease, unspecified
CPT/HCPCS: 99283; J3490; A9270

== ENCOUNTER 2017-11-06 14:40 | Emergency (ER) | payer MEDICARE, MEDICAID ==
[2017-11-06 14:52] VITALS: BP 147/89
[2017-11-06] MEDS ORDERED: ASPIRIN 81 MG TABLET, CHEWABLE PO ONE (15:02)
--- NOTE | 2017-11-06 15:03 | ER Document Report ---
ED Medical Screen (RME) - General Chief Complaint: Chest Wall Pain Stated Complaint: CHEST WALL PAIN Time Seen by Provider: 11/06/17 14:57 Notes: RAPID MEDICAL EVALUATION DISCLOSURE I have seen this patient as part of a Rapid Medical Evaluation and, if applicable, placed any initially appropriate orders. The patient will be seen and fully evaluated, including a full history and physical exam, by a provider ( in Main ED or Fast Track) when a room becomes available. 77-year-old female here with complaints of left-sided chest pain radiating up to the left neck shortness of breath nausea vomiting lightheadedness diaphoresis that started yesterday while she was laying in bed. The symptoms started for about 30 minutes then gradually resolved. She did not take any medication for the symptoms. She cannot tell me if the symptoms are worse with exertion because "I was too afraid to walk so I sat back down on the bed". EXAM CTAB Minimally tachycardic low 100s NOTE Patient states she can take baby aspirin without any adverse reactions TRAVEL OUTSIDE OF THE [place] IN LAST 30 DAYS: No - Related Data Allergies/Adverse Reactions: oxytetracycline [From Terramycin] Allergy (Severe, Verified 11/02/17 19:44) Throat swells oxytetracycline HCl [From Terramycin] Allergy (Severe, Verified 11/02/17 19:44) Throat swells Penicillins Allergy (Severe, Verified 11/02/17 19:44) Swelling sulfamethoxazole [From Septra] Allergy (Severe, Verified 11/02/17 19:44) Headaches trimethoprim [From Septra] Allergy (Severe, Verified 11/02/17 19:44) Headaches acetaminophen [From Tylenol] Allergy (Unknown, Verified 11/02/17 19:44) aspirin [Aspirin] Allergy (Unknown, Verified 11/02/17 19:44) ? childhood reaction mycins Allergy (Severe, Uncoded 11/02/17 19:44) Hives PPD Allergy (Severe, Uncoded 11/02/17 19:44) Cardiac arrest Past Medical History - Past Medical History Cardiac Medical History: Reports: Hx Congestive Heart Failure, Hx Heart Attack - Age 26, Hx Hypercholesterolemia, Hx Hypertension Pulmonary Medical History: Reports: Hx Asthma, Hx Pneumonia - yrs ago Denies: Hx Bronchitis, Hx COPD Neurological Medical History: Reports: Hx Cerebrovascular Accident - Age 26 ( Mini). Denies: Hx Seizures Renal/ Medical History: Reports: Hx Kidney Stones. Denies: Hx Peritoneal Dialysis GI Medical History: Reports: Hx Diverticulitis Musculoskeltal Medical History: Reports Hx Arthritis - Legs & Back Past Surgical History: Reports: Hx Abdominal Surgery - exploratory, Hx Appendectomy, Hx Section, Hx Hysterectomy, Hx Tonsillectomy, Hx Tubal Ligation - Immunizations Hx Diphtheria, Pertussis, Tetanus Vaccination: Yes History of Influenza Vaccine for 03/2017 - 08/2017 Season: Yes Influenza Administration Date for 03/2017 - 08/2017 Season: 03/04/17 Physical Exam - Vital signs Vitals: Temp Pulse Resp BP Pulse Ox 98.5 F 106 H 20 147/89 H 94 11/06/17 14:50 11/06/17 14:50 11/06/17 14:50 11/06/17 14:50 11/06/17 14:50 Course - Vital Signs Vital signs: Temp Pulse Resp BP Pulse Ox 98.5 F 106 H 20 147/89 H 94 11/06/17 14:50 11/06/17 14:50 11/06/17 14:50 11/06/17 14:50 11/06/17 14:50 Doctor's Discharge - Discharge Referrals: WILBERT ALMENDAREZ MD [Primary Care Provider] - Follow up as needed
--- NOTE | 2017-11-06 22:12 | EKG REPORT ---
SEVERITY:- ABNORMAL ECG - SINUS TACHYCARDIA PROBABLE INFEROLATERAL INFARCT, AGE INDETERM ANTERIOR INFARCT, AGE INDETERMINATE BORDERLINE PROLONGED QT INTERVAL : Confirmed by: Alis Adam MD 06-Nov-2017 22:10:44
== END 2017-11-06 15:30 | disposition left against medical advice (07) ==
LOC: ER 14:40
DX: R07.89 Other chest pain (principal); R06.02 Shortness of breath; R11.2 Nausea with vomiting, unspecified; R42 Dizziness and giddiness; R61 Generalized hyperhidrosis; Z53.29 Procedure and treatment not carried out because of patient's decision for other reasons; R00.0 Tachycardia, unspecified; I10 Essential (primary) hypertension; I25.2 Old myocardial infarction; J45.909 Unspecified asthma, uncomplicated; Z88.0 Allergy status to penicillin; Z88.1 Allergy status to other antibiotic agents; Z88.6 Allergy status to analgesic agent; Z88.7 Allergy status to serum and vaccine
CPT/HCPCS: 93005; 99281; 36415; 93010; A9270

== ENCOUNTER 2017-12-11 14:21 | Emergency (ER) | payer MEDICARE, MEDICAID ==
--- NOTE | 2017-12-11 14:41 | ER Document Report ---
ED Medical Screen (RME) - General Stated Complaint: SYNCOPE Time Seen by Provider: 12/11/17 14:39 Mode of Arrival: Ambulatory Information source: Patient Notes: 77 yr old female presents with complaints of syncope while she was packing. pt admits to chest pressure associated with it. Notes hx of "light heart attack " when she was 27. Normal stress test last year pt refuses blood work I have greeted and performed a rapid initial assessment of this patient. A comprehensive ED assessment and evaluation of the patient, analysis of test results and completion of the medical decision making process will be conducted by additional ED providers. PHYSICAL EXAMINATION: GENERAL: Well-appearing, well-nourished and in no acute distress. HEAD: Atraumatic, normocephalic. EYES: Pupils equal round extraocular movements intact, conjunctiva are normal. ENT: Nares patent NECK: Normal range of motion LUNGS: No respiratory distress Musculoskeletal: Normal range of motion NEUROLOGICAL: Normal speech, normal gait. PSYCH: Normal mood, normal affect. SKIN: Warm, Dry, normal turgor, no rashes or lesions noted. TRAVEL OUTSIDE OF THE [place] IN LAST 30 DAYS: No - Related Data Allergies/Adverse Reactions: oxytetracycline [From Terramycin] Allergy (Severe, Verified 11/06/17 15:03) Throat swells oxytetracycline HCl [From Terramycin] Allergy (Severe, Verified 11/06/17 15:03) Throat swells Penicillins Allergy (Severe, Verified 11/06/17 15:03) Swelling sulfamethoxazole [From Septra] Allergy (Severe, Verified 11/06/17 15:03) Headaches trimethoprim [From Septra] Allergy (Severe, Verified 11/06/17 15:03) Headaches acetaminophen [From Tylenol] Allergy (Unknown, Verified 11/06/17 15:03) aspirin [Aspirin] Allergy (Unknown, Verified 11/06/17 15:03) ? childhood reaction mycins Allergy (Severe, Uncoded 11/06/17 15:03) Hives PPD Allergy (Severe, Uncoded 11/06/17 15:03) Cardiac arrest Past Medical History - Past Medical History Cardiac Medical History: Reports: Hx Congestive Heart Failure, Hx Heart Attack - Age 26, Hx Hypercholesterolemia, Hx Hypertension Pulmonary Medical History: Reports: Hx Asthma, Hx Pneumonia - yrs ago Denies: Hx Bronchitis, Hx COPD Neurological Medical History: Reports: Hx Cerebrovascular Accident - Age 26 ( Mini). Denies: Hx Seizures Renal/ Medical History: Reports: Hx Kidney Stones. Denies: Hx Peritoneal Dialysis GI Medical History: Reports: Hx Diverticulitis Musculoskeltal Medical History: Reports Hx Arthritis - Legs & Back Past Surgical History: Reports: Hx Abdominal Surgery - exploratory, Hx Appendectomy, Hx Section, Hx Hysterectomy, Hx Tonsillectomy, Hx Tubal Ligation - Immunizations Hx Diphtheria, Pertussis, Tetanus Vaccination: Yes History of Influenza Vaccine for 03/2017 - 08/2017 Season: Yes Influenza Administration Date for 03/2017 - 08/2017 Season: 03/04/17 Doctor's Discharge - Discharge Referrals: WILBERT ALMENDAREZ MD [Primary Care Provider] - Follow up as needed
--- NOTE | 2017-12-11 15:10 | RADIOLOGY REPORT (SQ) ---
EXAM DESCRIPTION: CHEST 2 VIEWS COMPLETED DATE/TIME: 12/11/2017 2:57 pm REASON FOR STUDY: syncope COMPARISON: Chest films 08/04/2016 CT angio chest 10/17/2017 EXAM PARAMETERS: NUMBER OF VIEWS: two views TECHNIQUE: Digital Frontal and Lateral radiographic views of the chest acquired. RADIATION DOSE: NA LIMITATIONS: none FINDINGS: LUNGS AND PLEURA: No opacities, masses or pneumothorax. No pleural effusion. MEDIASTINUM AND HILAR STRUCTURES: No masses or contour abnormalities. HEART AND VASCULAR STRUCTURES: Heart normal size. No evidence for failure. BONES: No acute findings. HARDWARE: None in the chest. OTHER: No other significant finding. IMPRESSION: NO ACUTE RADIOGRAPHIC FINDING IN THE CHEST. TECHNICAL DOCUMENTATION: JOB ID: [id number] [employer]- All Rights Reserved Reading location - IP/workstation name: [email or web address]
--- NOTE | 2017-12-11 15:17 | ER Document Report ---
ED Fall - General Chief Complaint: Fall Injury Stated Complaint: SYNCOPE Time Seen by Provider: 12/11/17 14:39 Mode of Arrival: Ambulatory Information source: Patient Notes: Patient is a 77 year old female with a history of a "mild heart attack" years ago had a stress test approximately 2 years ago that was normal who presents to the ER today for chest pressure while she was packing today and then lightheadedness with a syncopal episode. Patient was alone and does not know how long she was unconscious for but did fall, landing on the couch. She denies hitting her head. Patient admits to some mild chest pain at this time. Patient is allergic to aspirin. Patient denies any headache, blurred vision, numbness or tingling anywhere. Patient takes blood pressure medication and cholesterol medication. TRAVEL OUTSIDE OF THE [place] IN LAST 30 DAYS: No - Related data Allergies/Adverse Reactions: oxytetracycline [From Terramycin] Allergy (Severe, Verified 11/06/17 15:03) Throat swells oxytetracycline HCl [From Terramycin] Allergy (Severe, Verified 11/06/17 15:03) Throat swells Penicillins Allergy (Severe, Verified 11/06/17 15:03) Swelling sulfamethoxazole [From Septra] Allergy (Severe, Verified 11/06/17 15:03) Headaches trimethoprim [From Septra] Allergy (Severe, Verified 11/06/17 15:03) Headaches acetaminophen [From Tylenol] Allergy (Unknown, Verified 11/06/17 15:03) aspirin [Aspirin] Allergy (Unknown, Verified 11/06/17 15:03) ? childhood reaction mycins Allergy (Severe, Uncoded 11/06/17 15:03) Hives PPD Allergy (Severe, Uncoded 11/06/17 15:03) Cardiac arrest Past Medical History - General Information source: Patient - Social History Smoking Status: Never Smoker Chew tobacco use (# tins/day): No Frequency of alcohol use: None Drug Abuse: None Family History: Reviewed & Not Pertinent Patient has suicidal ideation: No Patient has homicidal ideation: No - Past Medical History Cardiac Medical History: Reports: Hx Congestive Heart Failure, Hx Heart Attack - Age 26, Hx Hypercholesterolemia, Hx Hypertension Pulmonary Medical History: Reports: Hx Asthma, Hx Pneumonia - yrs ago Denies: Hx Bronchitis, Hx COPD Neurological Medical History: Reports: Hx Cerebrovascular Accident - Age 26 ( Mini). Denies: Hx Seizures Renal/ Medical History: Reports: Hx Kidney Stones. Denies: Hx Peritoneal Dialysis GI Medical History: Reports: Hx Diverticulitis Musculoskeltal Medical History: Reports Hx Arthritis - Legs & Back Past Surgical History: Reports: Hx Abdominal Surgery - exploratory, Hx Appendectomy, Hx Section, Hx Hysterectomy, Hx Tonsillectomy, Hx Tubal Ligation - Immunizations Hx Diphtheria, Pertussis, Tetanus Vaccination: Yes Hx Pneumococcal Vaccination: 03/04/17 Review of Systems - Review of Systems Constitutional: No symptoms reported EENT: No symptoms reported Cardiovascular: See HPI Respiratory: No symptoms reported Gastrointestinal: No symptoms reported Genitourinary: No symptoms reported Female Genitourinary: No symptoms reported Musculoskeletal: No symptoms reported Skin: No symptoms reported Hematologic/Lymphatic: No symptoms reported Neurological/Psychological: No symptoms reported Physical Exam - Vital signs Vitals: Temp Pulse Resp BP Pulse Ox 97.6 F 75 18 132/84 H 97 12/11/17 16:21 12/11/17 16:21 12/11/17 16:21 12/11/17 16:21 12/11/17 16:21 - Notes Notes: PHYSICAL EXAMINATION: GENERAL: Well-appearing smiling and talking on cell phone, and in no acute distress. HEAD: Atraumatic, normocephalic. EYES: Pupils equal round and reactive to light, extraocular movements intact, sclera anicteric, conjunctiva are normal. NECK: Normal range of motion, supple without lymphadenopathy LUNGS: CTAB and equal. No wheezes rales or rhonchi. HEART: Center and left chest exquisitely tender to palpation, regular rate and rhythm without murmurs ABDOMEN: Soft, no tenderness. No guarding, no rebound BACK: no vertebral tenderness, normal ROM GI/: no CVA tenderness EXTREMITIES: Normal range of motion, no pitting edema. No cyanosis. NEUROLOGICAL: Cranial nerves grossly intact. Normal sensory/motor exams. PSYCH: Normal mood, normal affect. SKIN: Warm, Dry, normal turgor, no rashes or lesions noted Course - Re-evaluation Re-evalutation: 12/11/17 15:15 Patient is allergic to aspirin. Patient refuses blood work after at least 20 minutes of attempted education on my part and the part of my attending, Dr. Olson, but even though she says that she understands that she cannot contracted HIV from blood draws today, she continues to decline blood draws. She is alert and oriented and I cannot force her to have her blood drawn. Her EKG reveals a normal sinus rhythm with no evidence of acute ischemia or abnormality, chest x-ray is normal today. Patient has normal vital signs and is well-appearing, chest pain was very tender to palpation. Patient recently just had a full workup and admission for chest pain in October. I did consult with hospitalist to see if we can at least admit her to observe her chest pain and possibly repeat EKGs if chest pain continues, however hospitalist declined admission stating "if she is not going to let us do what we need to do I see no reason to admit her at this time. Patient does understand the risk of leaving and that she may actually be having a heart attack at this time but she continues to refuse lab work. Patient's chest pain was gone by discharge and she did not receive aspirin because she is allergic. 12/11/17 18:50 - Vital Signs Vital signs: Temp Pulse Resp BP Pulse Ox 97.6 F 75 18 132/84 H 97 12/11/17 16:21 12/11/17 16:21 12/11/17 16:21 12/11/17 16:21 12/11/17 16:21 Discharge - Discharge Clinical Impression: Chest pain Qualifiers: Chest pain type: unspecified Qualified Code(s): R07.9 - Chest pain, unspecified Condition: Stable Disposition: AGAINST MEDICAL ADVICE Additional Instructions: Return immediately for any new or worsening symptoms. Follow up with primary care provider, call tomorrow to make followup appointment. Referrals: WILBERT ALMENDAREZ MD [Primary Care Provider] - Follow up as needed
[2017-12-11 15:37] LABS: APPEARANCE,URINE CLEAR; BILIRUBIN,URINE NEGATIVE (NEGATIVE); COLOR,URINE STRAW; GLUCOSE, URINE NEGATIVE (NEGATIVE); KETONES,URINE NEGATIVE (NEGATIVE); LEUKOCYTE ESTERASE,URINE NEGATIVE (NEGATIVE); NITRITE,URINE NEGATIVE (NEGATIVE); PROTEIN,URINE NEGATIVE (NEGATIVE); URINE SPECIFIC GRAVITY 1.006; UROBILINOGEN,URINE NEGATIVE mg/dL (<2.0)
[2017-12-11 16:24] VITALS: BP 132/84
--- NOTE | 2017-12-11 20:48 | EKG REPORT ---
SEVERITY:- ABNORMAL ECG - SINUS RHYTHM INFERIOR INFARCT, OLD VERSUS LAHB : Confirmed by: Alis Adam MD 11-Dec-2017 20:47:48
== END 2017-12-11 16:24 | disposition left against medical advice (07) ==
LOC: ER 14:21
DX: R55 Syncope and collapse (principal); R07.89 Other chest pain; I10 Essential (primary) hypertension; J45.909 Unspecified asthma, uncomplicated; I25.2 Old myocardial infarction; Z88.6 Allergy status to analgesic agent; Z79.899 Other long term (current) drug therapy; Z88.0 Allergy status to penicillin; Z88.1 Allergy status to other antibiotic agents; Z88.7 Allergy status to serum and vaccine; Z53.29 Procedure and treatment not carried out because of patient's decision for other reasons
CPT/HCPCS: 71046; 81001; 93005; 93010; 99284

== ENCOUNTER 2018-01-24 21:28 | Emergency (ER) | payer MEDICARE, MEDICAID ==
[2018-01-24] MEDS ORDERED: NORMAL SALINE 500 ML IV ONE (22:42)
--- NOTE | 2018-01-24 22:50 | ER Document Report ---
ED Syncope and Near Syncope - General Mode of Arrival: Ambulatory Information source: Patient TRAVEL OUTSIDE OF THE [place] IN LAST 30 DAYS: No <JAMES SMITH - Last Filed: 01/24/18 22:52> <ELAYNE MORALES - Last Filed: 01/25/18 02:13> - General Chief Complaint: Near Syncope Stated Complaint: POSSIBLE SYNCOPE Time Seen by Provider: 01/24/18 22:29 Notes: 77-year-old female who presents to the emergency department today with complaints of a syncopal event that occurred just prior to arrival. Patient states she has lost several family members recently including her 17-year-old niece. Patient states that this evening her roommates were arguing and she had a syncopal event. Patient states she had a similar episode when she had an MO at age 27. Patient states she has no stents and has not had any significant cardiac events since age 27. Patient denies chest pain. (JAMES SMITH) - Related Data Allergies/Adverse Reactions: oxytetracycline [From Terramycin] Allergy (Severe, Verified 11/06/17 15:03) Throat swells oxytetracycline HCl [From Terramycin] Allergy (Severe, Verified 11/06/17 15:03) Throat swells Penicillins Allergy (Severe, Verified 11/06/17 15:03) Swelling sulfamethoxazole [From Septra] Allergy (Severe, Verified 11/06/17 15:03) Headaches trimethoprim [From Septra] Allergy (Severe, Verified 11/06/17 15:03) Headaches acetaminophen [From Tylenol] Allergy (Unknown, Verified 11/06/17 15:03) aspirin [Aspirin] Allergy (Unknown, Verified 11/06/17 15:03) ? childhood reaction mycins Allergy (Severe, Uncoded 11/06/17 15:03) Hives PPD Allergy (Severe, Uncoded 11/06/17 15:03) Cardiac arrest Past Medical History - General Information source: Patient - Social History Smoking Status: Never Smoker Cigarette use (# per day): No Frequency of alcohol use: None Drug Abuse: None Lives with: Family Family History: Reviewed & Not Pertinent - Past Medical History Cardiac Medical History: Reports: Hx Congestive Heart Failure, Hx Heart Attack - Age 26, Hx Hypercholesterolemia, Hx Hypertension Pulmonary Medical History: Reports: Hx Asthma, Hx Pneumonia - yrs ago Neurological Medical History: Reports: Hx Cerebrovascular Accident - Age 26 ( Mini) Renal/ Medical History: Reports: Hx Kidney Stones GI Medical History: Reports: Hx Diverticulitis Musculoskeletal Medical History: Reports Hx Arthritis - Legs & Back Past Surgical History: Reports: Hx Abdominal Surgery - exploratory, Hx Appendectomy, Hx Section, Hx Hysterectomy, Hx Tonsillectomy, Hx Tubal Ligation - Immunizations Hx Diphtheria, Pertussis, Tetanus Vaccination: Yes Hx Pneumococcal Vaccination: 03/04/17 <JAMES SMITH - Last Filed: 01/24/18 22:52> Review of Systems - Review of Systems Constitutional: No symptoms reported EENT: No symptoms reported Cardiovascular: See HPI, Syncope. denies: Chest pain Respiratory: No symptoms reported Gastrointestinal: No symptoms reported Genitourinary: No symptoms reported Female Genitourinary: No symptoms reported Musculoskeletal: No symptoms reported Skin: No symptoms reported Hematologic/Lymphatic: No symptoms reported Neurological/Psychological: No symptoms reported -: Yes All other systems reviewed and negative <JAMES SMITH - Last Filed: 01/24/18 22:52> Physical Exam - Vital signs Interpretation: Normal - General General appearance: Appears well, Alert - HEENT Head: Normocephalic, Atraumatic Eyes: Normal Pupils: PERRL - Respiratory Respiratory status: No respiratory distress Chest status: Nontender Breath sounds: Normal Chest palpation: Normal - Cardiovascular Rhythm: Regular Heart sounds: Normal auscultation Murmur: No - Abdominal Inspection: Normal Distension: No distension Bowel sounds: Normal Tenderness: Nontender Organomegaly: No organomegaly - Back Back: Normal, Nontender - Extremities General upper extremity: Normal inspection, Nontender, Normal color, Normal ROM , Normal temperature General lower extremity: Normal inspection, Nontender, Normal color, Normal ROM , Normal temperature, Normal weight bearing. No: Nagi's sign - Neurological Neuro grossly intact: Yes Cognition: Normal Orientation: AAOx4 [place] Coma Scale Eye Opening: Spontaneous [place] Coma Scale Verbal: Oriented [place] Coma Scale Motor: Obeys Commands [place] Coma Scale Total: 15 Speech: Normal Motor strength normal: LUE, RUE, LLE, RLE Sensory: Normal - Psychological Associated symptoms: Normal affect, Normal mood - Skin Skin Temperature: Warm Skin Moisture: Dry Skin Color: Normal <ELAYNE MORALES - Last Filed: 01/25/18 02:13> - Vital signs Vitals: Temp Pulse Resp BP Pulse Ox 97.8 F 91 20 144/79 H 95 01/24/18 21:33 01/24/18 21:33 01/24/18 21:33 01/24/18 21:33 01/24/18 21:33 Course <JAMES SMITH - Last Filed: 01/24/18 22:52> <ELAYNE MORALES - Last Filed: 01/25/18 02:13> - Re-evaluation Re-evalutation: 01/24/18 22:50 Patient refusing blood work (JAMES SMITH) 01/25/18 00:10 Patient is a 77-year-old female who is brought in for near syncope. Patient states that she has been upset today because she found out that her 17-year-old niece just from a forced drug overdose. Patient states that her roommates were arguing and it was upsetting her. She is refused blood work because she states that that is how her son contracted HIV in the past. She is awake alert and oriented to person time and place. She is stable vitals and is able to refuse blood work. EKG is at baseline. Patient has had no further symptoms. Urine and chest x-ray within normal limits. 01/25/18 00:16 Patient is not orthostatic. Ambulates easily and maintains her oxygenation above 95%. She would like to go home. Stable for discharge. Again, does not want any further blood work. She is to call her doctor for an appointment later today. Stable for discharge. Of note the patient had a benign workup in October for very similar symptomatology. This included negative troponins and a negative CTA. (ELAYNE MORALES) - Vital Signs Vital signs: Temp Pulse Resp BP Pulse Ox 97.6 F 80 20 129/70 H 95 01/25/18 00:44 01/25/18 00:44 01/25/18 00:44 01/25/18 00:44 01/25/18 00:44 Discharge <JAMES SMITH - Last Filed: 01/24/18 22:52> <ELAYNE MORALES - Last Filed: 01/25/18 02:13> - Discharge Clinical Impression: Near syncope Condition: Stable Disposition: HOME, SELF-CARE Instructions: Near Syncopal Episode ([facility]) Referrals: WILBERT ALMENDAREZ MD [Primary Care Provider] - Follow up tomorrow [facility] Attestation: 01/25/18 02:13 I personally performed the services described in the documentation, reviewed and edited the documentation which was dictated to the scribe in my presence, and it accurately records my words and actions. (ELAYNE MORALES) Scribe Documentation - Scribe Written by Renitae:: Triston Sanchez, 01/24/2018 [id number] acting as scribe for :: Mikel <JAMES SMITH - Last Filed: 01/24/18 22:52>
[2018-01-24 23:42] LABS: APPEARANCE,URINE CLEAR; BILIRUBIN,URINE NEGATIVE (NEGATIVE); COLOR,URINE STRAW; GLUCOSE, URINE NEGATIVE (NEGATIVE); KETONES,URINE NEGATIVE (NEGATIVE); LEUKOCYTE ESTERASE,URINE NEGATIVE (NEGATIVE); NITRITE,URINE NEGATIVE (NEGATIVE); PROTEIN,URINE NEGATIVE (NEGATIVE); URINE SPECIFIC GRAVITY 1.005; UROBILINOGEN,URINE NEGATIVE mg/dL (<2.0)
--- NOTE | 2018-01-24 23:43 | RADIOLOGY REPORT (SQ) ---
EXAM DESCRIPTION: XR CHEST 1 VIEW COMPLETED DATE/TME: 01/24/2018 22:41 CLINICAL HISTORY: syncope COMPARISON: 11/11/2017 FINDINGS: Single frontal view of the chest. Tortuosity of the thoracic aorta. Leads overlie the chest. No consolidation, pneumothorax, or pleural effusion. No displaced rib fractures identified. Upper abdominal soft tissues are unremarkable. IMPRESSION: 1. No acute pulmonary process identified.
[2018-01-25 01:40] VITALS: BP 129/70
--- NOTE | 2018-01-25 09:10 | EKG REPORT ---
SEVERITY:- ABNORMAL ECG - ECTOPIC ATRIAL RHYTHM INFERIOR INFARCT, AGE INDETERMINATE : Confirmed by: Brennan Palma 25-Jan-2018 09:09:40
== END 2018-01-25 01:00 | disposition home or self-care (01) ==
LOC: ER 21:28
DX: R55 Syncope and collapse (principal); I10 Essential (primary) hypertension; I25.2 Old myocardial infarction; J45.909 Unspecified asthma, uncomplicated; Z88.0 Allergy status to penicillin; Z88.1 Allergy status to other antibiotic agents; Z88.6 Allergy status to analgesic agent; Z88.7 Allergy status to serum and vaccine
CPT/HCPCS: 71045; 81001; 93005; 93010; 99284

== ENCOUNTER 2018-02-20 11:32 | Emergency (ER) | payer MEDICARE, MEDICAID ==
[2018-02-20 12:21] LABS: ABSOLUTE BASOPHILS # (AUTO) 0.1 10^3/uL (0.0-0.2); ABSOLUTE EOSINOPHILS # (AUTO) 0.3 10^3/uL (0.0-0.6); ABSOLUTE LYMPHOCYTES (AUTO) 1.3 10^3/uL (0.5-4.7); ABSOLUTE MONOCYTES (AUTO) 0.9 10^3/uL (0.1-1.4); ABSOLUTE NEUT (AUTO) 4.6 10^3/uL (1.7-8.2); APPEARANCE,URINE CLEAR; BILIRUBIN,URINE NEGATIVE (NEGATIVE); COLOR,URINE YELLOW; GLUCOSE, URINE NEGATIVE (NEGATIVE); HEMATOCRIT 40.4 % (36.0-47.0); HEMOGLOBIN 13.7 g/dL (12.0-15.5); KETONES,URINE NEGATIVE (NEGATIVE); LEUKOCYTE ESTERASE,URINE NEGATIVE (NEGATIVE); LYMPHOCYTES % (AUTO) 17.5 % (13-45); MEAN CORPUSCULAR HEMOGLOBIN 28.9 pg (27.0-33.4); MEAN CORPUSCULAR VOLUME 85 fl (80-97); MONOCYTES % (AUTO) 12.5 % (3-13); NITRITE,URINE NEGATIVE (NEGATIVE); PLATELET COUNT 292 10^3/uL (150-450); PROTEIN,URINE NEGATIVE (NEGATIVE); RED BLOOD COUNT 4.75 10^6/uL (3.72-5.28); RED CELL DISTRIBUTION WIDTH 14.5 % (11.5-14.0); TOTAL CELLS COUNTED % (AUTO) 100 %; URINE SPECIFIC GRAVITY 1.006; UROBILINOGEN,URINE NEGATIVE mg/dL (<2.0); WHITE BLOOD COUNT 7.2 10^3/uL (4.0-10.5)
--- NOTE | 2018-02-20 12:29 | RADIOLOGY REPORT (SQ) ---
EXAM DESCRIPTION: CHEST SINGLE VIEW COMPLETED DATE/TIME: 02/20/2018 12:03 pm REASON FOR STUDY: cp COMPARISON: 01/24/2018. NUMBER OF VIEWS: One view. TECHNIQUE: Single frontal radiographic view of the chest acquired. LIMITATIONS: None. FINDINGS: LUNGS AND PLEURA: Minimal central vascular prominence. Lungs otherwise clear. MEDIASTINUM AND HILAR STRUCTURES: No masses. Contour normal. HEART AND VASCULAR STRUCTURES: Stable heart size. BONES: No acute findings. HARDWARE: None in the chest. OTHER: No other significant finding. IMPRESSION: Mild vascular congestion, otherwise unremarkable single-view portable chest. TECHNICAL DOCUMENTATION: JOB ID: [id number] [employer]- All Rights Reserved Reading location - IP/workstation name: [email or web address]
[2018-02-20 12:36] LABS: ALANINE AMINOTRANSFERASE 35 U/L (9-52); ALBUMIN 3.9 g/dL (3.5-5.0); ALKALINE PHOSPHATASE 65 U/L (38-126); ANION GAP 9 (5-19); ASPARTATE AMINO TRANSFERASE 31 U/L (14-36); BILIRUBIN,DIRECT 0.3 mg/dL (0.0-0.4); BILIRUBIN,TOTAL 0.4 mg/dL (0.2-1.3); BLOOD UREA NITROGEN 8 mg/dL (7-20); CALCIUM 9.2 mg/dL (8.4-10.2); CARBON DIOXIDE 27 mmol/L (22-30); CHLORIDE 102 mmol/L (98-107); CREATINE KINASE 84 U/L (30-135); GLUCOSE 106 mg/dL (75-110); POTASSIUM 4.7 mmol/L (3.6-5.0); SODIUM 138.2 mmol/L (137-145); TOTAL PROTEIN 7.2 g/dL (6.3-8.2)
[2018-02-20 12:50] LABS: CREATINE KINASE MB 1.11 ng/mL (<4.55)
[2018-02-20 12:51] LABS: TROPONIN I < 0.012 ng/mL
--- NOTE | 2018-02-20 16:05 | ER Document Report ---
ED General - General Chief Complaint: Chest Pain Stated Complaint: CHEST PAIN Time Seen by Provider: 02/20/18 11:50 TRAVEL OUTSIDE OF THE [place] IN LAST 30 DAYS: No - HPI Patient complains to provider of: Chest pain Notes: Patient coming in for evaluation of chest pain. Patient states chest pain around 3:00 last night center of the chest no radiation lasting for approximately 1 hour. Patient upon evaluation here in the ER states chest pain- free. Denies any recent travel trauma. Patient was recently admitted to the hospital had a stress test which patient states she was negative. Patient states she is waiting follow-up with her primary care physician. Resting comfortably no signs of fever chills nausea vomiting diarrhea abdominal pain chest pain at this time - Related Data Allergies/Adverse Reactions: oxytetracycline [From Terramycin] Allergy (Severe, Verified 11/06/17 15:03) Throat swells oxytetracycline HCl [From Terramycin] Allergy (Severe, Verified 11/06/17 15:03) Throat swells Penicillins Allergy (Severe, Verified 11/06/17 15:03) Swelling sulfamethoxazole [From Septra] Allergy (Severe, Verified 11/06/17 15:03) Headaches trimethoprim [From Septra] Allergy (Severe, Verified 11/06/17 15:03) Headaches acetaminophen [From Tylenol] Allergy (Unknown, Verified 11/06/17 15:03) aspirin [Aspirin] Allergy (Unknown, Verified 11/06/17 15:03) ? childhood reaction mycins Allergy (Severe, Uncoded 11/06/17 15:03) Hives PPD Allergy (Severe, Uncoded 11/06/17 15:03) Cardiac arrest Past Medical History - Social History Smoking Status: Never Smoker Chew tobacco use (# tins/day): No Frequency of alcohol use: None Drug Abuse: None Family History: Reviewed & Not Pertinent Patient has suicidal ideation: No Patient has homicidal ideation: No - Past Medical History Cardiac Medical History: Reports: Hx Congestive Heart Failure, Hx Heart Attack - Age 26, Hx Hypercholesterolemia, Hx Hypertension Pulmonary Medical History: Reports: Hx Asthma, Hx Pneumonia - yrs ago Denies: Hx Bronchitis, Hx COPD Neurological Medical History: Reports: Hx Cerebrovascular Accident - Age 26 ( Mini). Denies: Hx Seizures Renal/ Medical History: Reports: Hx Kidney Stones. Denies: Hx Peritoneal Dialysis GI Medical History: Reports: Hx Diverticulitis Musculoskeletal Medical History: Reports Hx Arthritis - Legs & Back Past Surgical History: Reports: Hx Abdominal Surgery - exploratory, Hx Appendectomy, Hx Section, Hx Hysterectomy, Hx Tonsillectomy, Hx Tubal Ligation - Immunizations Hx Diphtheria, Pertussis, Tetanus Vaccination: Yes Hx Pneumococcal Vaccination: 03/04/17 Review of Systems - Review of Systems Constitutional: No symptoms reported EENT: No symptoms reported Cardiovascular: Chest pain Respiratory: No symptoms reported Gastrointestinal: No symptoms reported Genitourinary: No symptoms reported Female Genitourinary: No symptoms reported Musculoskeletal: No symptoms reported Skin: No symptoms reported Hematologic/Lymphatic: No symptoms reported Neurological/Psychological: No symptoms reported -: Yes All other systems reviewed and negative Physical Exam - Vital signs Vitals: Pulse Ox 98 02/20/18 11:50 Interpretation: Normal - General General appearance: Appears well, Alert - HEENT Head: Normocephalic, Atraumatic Eyes: Normal Pupils: PERRL - Respiratory Respiratory status: No respiratory distress Chest status: Tender - Palpation to the center of the patient's chest does reproduce the patient's chest pain. Breath sounds: Normal Chest palpation: Normal - Cardiovascular Rhythm: Regular Heart sounds: Normal auscultation Murmur: No - Abdominal Inspection: Normal Distension: No distension Bowel sounds: Normal Tenderness: Nontender Organomegaly: No organomegaly - Back Back: Normal, Nontender - Extremities General upper extremity: Normal inspection, Nontender, Normal color, Normal ROM , Normal temperature General lower extremity: Normal inspection, Nontender, Normal color, Normal ROM , Normal temperature, Normal weight bearing. No: Nagi's sign - Neurological Neuro grossly intact: Yes Cognition: Normal Orientation: AAOx4 Odalys Coma Scale Eye Opening: Spontaneous Munson Coma Scale Verbal: Oriented Munson Coma Scale Motor: Obeys Commands Munson Coma Scale Total: 15 Speech: Normal Motor strength normal: LUE, RUE, LLE, RLE Sensory: Normal - Psychological Associated symptoms: Normal affect, Normal mood - Skin Skin Temperature: Warm Skin Moisture: Dry Skin Color: Normal Course - Re-evaluation Re-evalutation: 02/20/18 18:32 Troponins 2 negative. Evaluation the patient reveals chest wall pain. Recent negative stress test negative troponins and EKG changes recommend discharge at this time. Patient agrees with this plan patient is to follow-up primary care physician. The patient has atypical chest pain as the patient's chest pain is not suggestive of pulmonary embolus, cardiac ischemia, aortic dissection, or other serious etiology. Given the extremely low risk of these diagnoses further testing and evaluation for these possibilities does not appear to be indicated at this time. The patient has been instructed to return if the symptoms worsen or change in any way. - Vital Signs Vital signs: Temp Pulse Resp BP Pulse Ox 68 18 132/74 H 95 02/20/18 16:54 02/20/18 16:54 02/20/18 16:54 02/20/18 16:54 - Laboratory Result Diagrams: 02/20/18 12:00 02/20/18 12:00 Laboratory results interpreted by me: 02/20/18 02/20/18 12:00 12:00 RDW 14.5 H Urine Ascorbic Acid 20 H Discharge - Discharge Clinical Impression: Chest pain in adult Condition: Good Disposition: HOME, SELF-CARE Instructions: Chest Wall Pain ([facility]), Chest Pain of Unclear Cause ([facility]) Additional Instructions: Your cardiac studies today EKG did not show any acute changes no signs of cardiac ischemia or any signs of heart attack. Chest x-ray is also negative for any signs of infection. At this time your recent negative stress testing would recommend she follow-up with your primary care physician for further evaluation return to ER symptoms worsen continue all home medications as prescribed. Eat a healthy diet drinking fluids to stay hydrated.
[2018-02-20 16:54] VITALS: BP 132/74
--- NOTE | 2018-02-20 22:29 | EKG REPORT ---
SEVERITY:- ABNORMAL ECG - SINUS RHYTHM INFERIOR INFARCT, AGE INDETERMINATE CONSIDER ANTERIOR INFARCT : Confirmed by: Alis Adam MD 20-Feb-2018 22:28:22
== END 2018-02-20 16:54 | disposition home or self-care (01) ==
LOC: ER 11:32
DX: R07.9 Chest pain, unspecified (principal); I50.9 Heart failure, unspecified; E78.00 Pure hypercholesterolemia, unspecified; I10 Essential (primary) hypertension; I25.2 Old myocardial infarction; Z87.442 Personal history of urinary calculi; Z86.74 Personal history of sudden cardiac arrest; Z98.51 Tubal ligation status
CPT/HCPCS: 36415; 71045; 80053; 81001; 82550; 82553; 84484; 85025; 93005; 93010; 99285

== ENCOUNTER 2018-03-02 21:13 | Emergency (ER) | payer MEDICARE, MEDICAID ==
--- NOTE | 2018-03-02 22:09 | ER Document Report ---
ED General - General Stated Complaint: CHEST PAIN Time Seen by Provider: 03/02/18 21:17 Notes: Patient is a 77-year-old female with a past medical history of hypertension, hyperlipidemia, diabetes, no known history of coronary artery disease, who presents with an episode of chest pain and palpitations that has since resolved. Patient states that her symptoms are started at 8 PM. She tried taking her blood pressure pill and it did not improve her symptoms prompting her to contact EMS. She reports that she no longer has any symptoms of any kind after getting aspirin by EMS. Notes a history of similar symptoms many times in the past. She has not contacted her general doctor regarding today's concerns. No associated shortness of breath, nausea, vomiting or diaphoresis. Nothing clearly triggered her symptoms. TRAVEL OUTSIDE OF THE [place] IN LAST 30 DAYS: No - Related Data Allergies/Adverse Reactions: oxytetracycline [From Terramycin] Allergy (Severe, Verified 03/02/18 22:11) Throat swells oxytetracycline HCl [From Terramycin] Allergy (Severe, Verified 03/02/18 22:11) Throat swells Penicillins Allergy (Severe, Verified 03/02/18 22:11) Swelling sulfamethoxazole [From Septra] Allergy (Severe, Verified 03/02/18 22:11) Headaches trimethoprim [From Septra] Allergy (Severe, Verified 03/02/18 22:11) Headaches acetaminophen [From Tylenol] Allergy (Unknown, Verified 03/02/18 22:11) aspirin [Aspirin] Allergy (Unknown, Verified 03/02/18 22:11) ? childhood reaction nitroglycerin Allergy (Verified 03/02/18 22:11) mycins Allergy (Severe, Uncoded 11/06/17 15:03) Hives PPD Allergy (Severe, Uncoded 11/06/17 15:03) Cardiac arrest Past Medical History - General Information source: Patient - Social History Smoking Status: Former Smoker Frequency of alcohol use: None Drug Abuse: None Lives with: Friend Family History: Reviewed & Not Pertinent - Past Medical History Cardiac Medical History: Reports: Hx Congestive Heart Failure, Hx Heart Attack - Age 26, Hx Hypercholesterolemia, Hx Hypertension Pulmonary Medical History: Reports: Hx Asthma, Hx Pneumonia - yrs ago Denies: Hx Bronchitis, Hx COPD Neurological Medical History: Reports: Hx Cerebrovascular Accident - Age 26 ( Mini). Denies: Hx Seizures Renal/ Medical History: Reports: Hx Kidney Stones. Denies: Hx Peritoneal Dialysis GI Medical History: Reports: Hx Diverticulitis Musculoskeletal Medical History: Reports Hx Arthritis - Legs & Back Past Surgical History: Reports: Hx Abdominal Surgery - exploratory, Hx Appendectomy, Hx Section, Hx Hysterectomy, Hx Tonsillectomy, Hx Tubal Ligation - Immunizations Hx Diphtheria, Pertussis, Tetanus Vaccination: Yes Hx Pneumococcal Vaccination: 03/04/17 Review of Systems - Review of Systems Notes: Constitutional: Negative for fever. HENT: Negative for sore throat. Eyes: Negative for visual changes. Cardiovascular: Positive for chest pain. Respiratory: Negative for shortness of breath. Gastrointestinal: Negative for abdominal pain, vomiting or diarrhea. Genitourinary: Negative for dysuria. Musculoskeletal: Negative for back pain. Skin: Negative for rash. Neurological: Negative for headaches, weakness or numbness. 10 point ROS negative except as marked above and in HPI. Physical Exam - Vital signs Vitals: Temp Resp Pulse Ox 97.6 F 19 95 03/02/18 21:32 03/02/18 21:32 03/02/18 21:32 Interpretation: Normal Notes: PHYSICAL EXAMINATION: GENERAL: Well-appearing, well-nourished and in no acute distress. HEAD: Atraumatic, normocephalic. EYES: Pupils equal round and reactive to light, extraocular movements intact, sclera anicteric, conjunctiva are normal. ENT: nares patent, oropharynx clear without exudates. Moist mucous membranes. NECK: Normal range of motion, supple without lymphadenopathy LUNGS: Breath sounds clear to auscultation bilaterally and equal. No wheezes rales or rhonchi. HEART: Regular rate and rhythm, 3 out of 6 systolic ejection murmur ABDOMEN: Soft, nontender, normoactive bowel sounds. No guarding, no rebound. No masses appreciated. EXTREMITIES: Normal range of motion, no pitting or edema. No cyanosis. NEUROLOGICAL: No focal neurological deficits. Moves all extremities spontaneously and on command. PSYCH: Normal mood, normal affect. SKIN: Warm, Dry, normal turgor, no rashes or lesions noted. Course - Re-evaluation Re-evalutation: 03/02/18 22:04 Patient is a 77-year-old female who presents with concerns of palpitations and episode of chest pain that started at 8 PM today. The patient denies any symptoms at the time of my assessment, states she feels fine and would like to go home. Chest x-ray is clear. EKG without ischemic changes. The patient has no known previous cardiac history. She is adamantly denying blood work. PE seems unlikely given the absence of tachycardia, tachypnea or hypoxia. The patient has chosen to leave the facility against medical advice. The relevant issues have been reviewed and discussed with the patient and family at the bedside. At the time of this assessment there is no indication for involuntary commitment. The patient is alert, oriented, and able to express clearly their reasoning for not wanting to remain in the emergency department for further treatment. The patient is not clinically psychotic, intoxicated, and denies and suicidal ideation. Differential or suspected diagnoses based on medical screening exam: Possible ACS, undifferentiated chest pain The patient is aware of the concerning diagnoses and acknowledges understanding of the reasons for the following recommendations: Evaluation with troponin markers for possible ACS The following recommendations/services were offered and refused: Troponin marker , possible hospitalization, stress testing The following risks were explained: , permanent disability, loss of function, [place] Clinical impression: Patient is competent to make decisions regarding the medical that is being offered. - Vital Signs Vital signs: Temp Pulse Resp BP Pulse Ox 97.6 F 20 125/67 96 03/02/18 21:32 03/02/18 22:37 03/02/18 22:38 03/02/18 22:37 - Diagnostic Test Radiology reviewed: Image reviewed, Reports reviewed Radiology results interpreted by me: 03/02/18 22:05 Chest x-ray: No acute infiltrate or pneumothorax - EKG Interpretation by Me Additional EKG results interpreted by me: 03/02/18 22:05 Sinus rhythm. Rate 83. No ST elevations or depressions. QTC is 447. Discharge - Discharge Clinical Impression: Chest pain Qualifiers: Chest pain type: unspecified Qualified Code(s): R07.9 - Chest pain, unspecified Condition: Good Disposition: AGAINST MEDICAL ADVICE Additional Instructions: You were seen today for chest pain. You refused an appropriate workup today and I cannot tell you that your chest pain was not from a serious cause such as a possible heart attack. Your welcome to return at any time if you like to complete her workup.
--- NOTE | 2018-03-02 22:34 | RADIOLOGY REPORT (SQ) ---
EXAM DESCRIPTION: XR CHEST 1 VIEW COMPLETED DATE/TME: 03/02/2018 21:17 CLINICAL HISTORY: 77 years Female, cp COMPARISON: None. NUMBER OF VIEWS/TECHNIQUE: 1/AP FINDINGS: Adequate lung volume, clear parenchyma, normal cardiac silhouette, and intact bony thorax. IMPRESSION: No acute cardiopulmonary findings.
[2018-03-02 22:43] VITALS: BP 125/67
--- NOTE | 2018-03-03 17:02 | EKG REPORT ---
SEVERITY:- ABNORMAL ECG - SINUS RHYTHM INFERIOR INFARCT, AGE INDETERMINATE : Confirmed by: Alis Adam MD 03-Mar-2018 17:01:19
== END 2018-03-02 22:43 | disposition left against medical advice (07) ==
LOC: ER 21:13
DX: R07.9 Chest pain, unspecified (principal); R00.2 Palpitations; R01.1 Cardiac murmur, unspecified; I10 Essential (primary) hypertension; I25.10 Atherosclerotic heart disease of native coronary artery without angina pectoris; I25.2 Old myocardial infarction; J45.909 Unspecified asthma, uncomplicated; E11.9 Type 2 diabetes mellitus without complications; Z88.1 Allergy status to other antibiotic agents; Z88.0 Allergy status to penicillin; Z88.6 Allergy status to analgesic agent; Z88.7 Allergy status to serum and vaccine; Z88.8 Allergy status to other drugs, medicaments and biological substances; Z87.891 Personal history of nicotine dependence; Z53.29 Procedure and treatment not carried out because of patient's decision for other reasons
CPT/HCPCS: 71045; 93005; 93010; 99285

== ENCOUNTER 2018-07-21 10:03 | Emergency (ER) | payer MEDICARE, MEDICAID ==
[2018-07-21] MEDS ORDERED: FUROSEMIDE INJ/PF 40 MG/4 ML SDV IV ONE (10:33)
--- NOTE | 2018-07-21 10:34 | ER Document Report ---
ED Medical Screen (RME) - General Chief Complaint: Shortness Of Breath Stated Complaint: DIFFICULTY BREATHING Time Seen by Provider: 07/21/18 10:17 Mode of Arrival: Medic Information source: Patient Notes: See my formal chart TRAVEL OUTSIDE OF THE [place] IN LAST 30 DAYS: No - Related Data Allergies/Adverse Reactions: oxytetracycline [From Terramycin] Allergy (Severe, Verified 03/02/18 22:11) Throat swells oxytetracycline HCl [From Terramycin] Allergy (Severe, Verified 03/02/18 22:11) Throat swells Penicillins Allergy (Severe, Verified 03/02/18 22:11) Swelling sulfamethoxazole [From Septra] Allergy (Severe, Verified 03/02/18 22:11) Headaches trimethoprim [From Septra] Allergy (Severe, Verified 03/02/18 22:11) Headaches acetaminophen [From Tylenol] Allergy (Unknown, Verified 03/02/18 22:11) nitroglycerin Allergy (Verified 03/02/18 22:11) mycins Allergy (Severe, Uncoded 11/06/17 15:03) Hives PPD Allergy (Severe, Uncoded 11/06/17 15:03) Cardiac arrest Past Medical History - Social History Frequency of alcohol use: None Drug Abuse: None - Past Medical History Cardiac Medical History: Reports: Hx Congestive Heart Failure, Hx Heart Attack - Age 26, Hx Hypercholesterolemia, Hx Hypertension Pulmonary Medical History: Reports: Hx Asthma, Hx Pneumonia - yrs ago Denies: Hx Bronchitis, Hx COPD Neurological Medical History: Reports: Hx Cerebrovascular Accident - Age 26 (Mini). Denies: Hx Seizures Renal/ Medical History: Reports: Hx Kidney Stones. Denies: Hx Peritoneal Dialysis GI Medical History: Reports: Hx Diverticulitis Musculoskeltal Medical History: Reports Hx Arthritis - Legs & Back Past Surgical History: Reports: Hx Abdominal Surgery - exploratory, Hx Appendectomy, Hx Section, Hx Hysterectomy, Hx Tonsillectomy, Hx Tubal Ligation - Immunizations Hx Diphtheria, Pertussis, Tetanus Vaccination: Yes History of Influenza Vaccine for 03/2017 - 08/2017 Season: Yes Influenza Administration Date for 03/2017 - 08/2017 Season: 03/04/17 Physical Exam - Vital signs Vitals: Resp Pulse Ox 24 H 93 07/21/18 10:10 07/21/18 10:10 Course - Vital Signs Vital signs: Temp Pulse Resp BP Pulse Ox 97.8 F 25 H 126/81 H 94 07/21/18 10:11 07/21/18 16:01 07/21/18 16:01 07/21/18 16:01 - Laboratory Result Diagrams: 07/21/18 11:05 07/21/18 11:05 Laboratory results interpreted by me: 07/21/18 07/21/18 11:05 11:05 RDW 15.5 H Monocytes % 15.4 H Eosinophils % 7.2 H Glucose 122 H
--- NOTE | 2018-07-21 10:35 | ER Document Report ---
ED General - General Chief Complaint: Shortness Of Breath Stated Complaint: DIFFICULTY BREATHING Time Seen by Provider: 07/21/18 10:17 Primary Care Provider: MICHELLE ZARCO MD [ACTIVE STAFF] - Follow up as needed (This is a blood doctor. If you are unable to establish with a primary care doctor, I want you to call this doctor to arrange follow-up for your lung nodules (with a CT scan or PET scan).) GIACOMO ESTRELLA MD [ACTIVE STAFF] - 07/22/18 (This is the number the asbestos wire finisher: Call to be evaluated and have a follow-up echo (ultrasound of the heart).) NETTE DURÁN MD [ACTIVE STAFF] - 07/22/18 (This is the number of the primary care doctor: Call and tell them you are in the emergency room for fluid overload and they wanted you followed up.) Mode of Arrival: Ambulatory Information source: Patient Notes: 77-year-old female with a history of CHF, as, coronary artery disease who is brought in by EMS because of wheezing and shortness of breath. Patient states she was given 2 nebulizers by EMS. She denies chest pain pain. She does states she has had some sinus congestion and a cough lately and some weight gain. TRAVEL OUTSIDE OF THE [place] IN LAST 30 DAYS: No - HPI Onset: Just prior to arrival Onset/Duration: Gradual Quality of pain: No pain Severity: None Pain Level: Denies Associated symptoms: Nonproductive cough, Shortness of breath. denies: Fever Exacerbated by: Denies Relieved by: Denies Similar symptoms previously: Yes Recently seen / treated by doctor: No - Related Data Allergies/Adverse Reactions: oxytetracycline [From Terramycin] Allergy (Severe, Verified 03/02/18 22:11) Throat swells oxytetracycline HCl [From Terramycin] Allergy (Severe, Verified 03/02/18 22:11) Throat swells Penicillins Allergy (Severe, Verified 03/02/18 22:11) Swelling sulfamethoxazole [From Septra] Allergy (Severe, Verified 03/02/18 22:11) Headaches trimethoprim [From Septra] Allergy (Severe, Verified 03/02/18 22:11) Headaches acetaminophen [From Tylenol] Allergy (Unknown, Verified 03/02/18 22:11) nitroglycerin Allergy (Verified 03/02/18 22:11) mycins Allergy (Severe, Uncoded 11/06/17 15:03) Hives PPD Allergy (Severe, Uncoded 11/06/17 15:03) Cardiac arrest Past Medical History - General Information source: Patient - Social History Smoking Status: Never Smoker Cigarette use (# per day): No Chew tobacco use (# tins/day): No Frequency of alcohol use: None Drug Abuse: None Lives with: Family Family History: Reviewed & Not Pertinent Patient has suicidal ideation: No Patient has homicidal ideation: No - Past Medical History Cardiac Medical History: Reports: Hx Congestive Heart Failure, Hx Heart Attack - Age 26, Hx Hypercholesterolemia, Hx Hypertension Pulmonary Medical History: Reports: Hx Asthma, Hx Pneumonia - yrs ago Denies: Hx Bronchitis, Hx COPD Neurological Medical History: Reports: Hx Cerebrovascular Accident - Age 26 (Mini). Denies: Hx Seizures Renal/ Medical History: Reports: Hx Kidney Stones. Denies: Hx Peritoneal Dialysis GI Medical History: Reports: Hx Diverticulitis Musculoskeletal Medical History: Reports Hx Arthritis - Legs & Back Past Surgical History: Reports: Hx Abdominal Surgery - exploratory, Hx Appendectomy, Hx Section, Hx Hysterectomy, Hx Tonsillectomy, Hx Tubal Ligation - Immunizations Hx Diphtheria, Pertussis, Tetanus Vaccination: Yes Hx Pneumococcal Vaccination: 03/04/17 Review of Systems - Review of Systems Constitutional: denies: Chills, Fever EENT: No symptoms reported Cardiovascular: No symptoms reported Respiratory: See HPI Gastrointestinal: No symptoms reported Genitourinary: No symptoms reported Female Genitourinary: No symptoms reported Musculoskeletal: No symptoms reported Skin: No symptoms reported Hematologic/Lymphatic: No symptoms reported Neurological/Psychological: No symptoms reported Physical Exam - Vital signs Vitals: Resp Pulse Ox 24 H 93 07/21/18 10:10 07/21/18 10:10 Notes: Physical exam: GENERAL: Patient is alert and oriented x3, conversant, no acute distress HEAD: Atraumatic, normocephalic. EYES: Pupils equal round and reactive to light, extraocular movements intact, sclera anicteric, conjunctiva are normal. ENT: TMs normal, nares patent, oropharynx clear without exudates. Moist mucous membranes. NECK: Normal range of motion, supple without obvious mass or JVD. LUNGS: Guided wheezing bilaterally after nebulizers. HEART: Regular rate and rhythm without murmurs, rubs or gallops. ABDOMEN: Soft, normoactive bowel sounds. No tenderness to palpation. No guarding, no rebound. No masses appreciated. EXTREMITIES: 1+ edema bilaterally to the lower extremities NEUROLOGICAL: Cranial nerves II through XII grossly intact. Normal speech, moving all extremities. PSYCH: Normal mood, normal affect. SKIN: Warm, Dry, normal turgor, no rashes or lesions noted. Course - Re-evaluation Re-evalutation: 07/21/18 18:49 Note: Patient has remained comfortable. She is in good spirits. She is accompanied by her family. I had a long discussion with them about the CAT scan: Particularly the pulmonary nodules, the risk of cancer and the need for follow-up with either a follow-up CAT scan or PET scan. Her primary care doctor had a few months ago and I will refer her to a primary care doctor. Given the cardiomegaly (she does have a history of CHF) and the fluid overload, I am going to increase her Lasix for a week and have her referred to a asbestos wire finisher. Patient is happy with this plan. - Vital Signs Vital signs: Temp Pulse Resp BP Pulse Ox 97.8 F 20 139/61 H 94 07/21/18 10:11 07/21/18 17:01 07/21/18 17:01 07/21/18 17:01 - Laboratory Result Diagrams: 07/21/18 11:05 07/21/18 11:05 Laboratory results interpreted by me: 07/21/18 07/21/18 11:05 11:05 RDW 15.5 H Monocytes % 15.4 H Eosinophils % 7.2 H Glucose 122 H - Diagnostic Test Radiology reviewed: Image reviewed - Chest x-ray shows no infiltrates or effusions - EKG Interpretation by Me Rate: Normal Rhythm: NSR - EKG shows normal sinus rhythm with a ventricular rate of 85, no acute ST-T wave changes Discharge - Discharge Clinical Impression: Reactive airway disease, Fluid overload Condition: Stable Disposition: HOME, SELF-CARE Additional Instructions: As we discussed, chest x-ray showed no evidence of pneumonia. CT scan showed no evidence of blood clots. But it did show that you had some pulmonary nodules in the right lung measured up to 9 mm. While lung nodules are fairly common, if they get large, there can be a concern for cancer. I want you to follow-up with primary care doctor. I put the number for Dr. Marco Zhou: Call the clinic and tell them you are in the emergency room for fluid overload in the ER doctor wanted you to establish care with him. When you see him, I want you to discuss the issue of the pulmonary nodules for follow-up test. The radiologist is recommended a follow-up CT scan or PET scan. As far as the fluid overload: Take the Lasix twice daily for the next week. Continue your current medicines Return to the emergency room for any worsening chest pain or shortness of breath. Prescriptions: Furosemide [Lasix 20 mg Tablet] 20 mg PO BID #14 tablet Referrals: NETTE DURÁN MD [ACTIVE STAFF] - 07/22/18 (This is the number of the primary care doctor: Call and tell them you are in the emergency room for fluid overload and they wanted you followed up.) GIACOMO ESTRELLA MD [ACTIVE STAFF] - 07/22/18 (This is the number the asbestos wire finisher: Call to be evaluated and have a follow-up echo (ultrasound of the heart).) MICHELLE ZARCO MD [ACTIVE STAFF] - Follow up as needed (This is a blood doctor. If you are unable to establish with a primary care doctor, I want you to call this doctor to arrange follow-up for your lung nodules (with a CT scan or PET scan).)
[2018-07-21 11:26] LABS: ABSOLUTE BASOPHILS # (AUTO) 0.1 10^3/uL (0.0-0.2); ABSOLUTE EOSINOPHILS # (AUTO) 0.5 10^3/uL (0.0-0.6); ABSOLUTE LYMPHOCYTES (AUTO) 1.2 10^3/uL (0.5-4.7); ABSOLUTE MONOCYTES (AUTO) 1.2 10^3/uL (0.1-1.4); ABSOLUTE NEUT (AUTO) 4.6 10^3/uL (1.7-8.2); BASOPHILS % (AUTO) 1.2 % (0-2); EOSINOPHILS % (AUTO) 7.2 % (0-6); HEMATOCRIT 40.4 % (36.0-47.0); HEMOGLOBIN 13.6 g/dL (12.0-15.5); LYMPHOCYTES % (AUTO) 15.7 % (13-45); MEAN CORPUSCULAR HEMOGLOBIN 28.3 pg (27.0-33.4); MEAN CORPUSCULAR HGB CONC 33.6 g/dL (32.0-36.0); MEAN CORPUSCULAR VOLUME 84 fl (80-97); MONOCYTES % (AUTO) 15.4 % (3-13); PLATELET COUNT 262 10^3/uL (150-450); RED BLOOD COUNT 4.79 10^6/uL (3.72-5.28); RED CELL DISTRIBUTION WIDTH 15.5 % (11.5-14.0); SEGMENTED NEUTROPHILS % (AUTO) 60.5 % (42-78); TOTAL CELLS COUNTED % (AUTO) 100 %; WHITE BLOOD COUNT 7.6 10^3/uL (4.0-10.5)
[2018-07-21 11:42] LABS: ALANINE AMINOTRANSFERASE 27 U/L (9-52); ALBUMIN 4.1 g/dL (3.5-5.0); ALKALINE PHOSPHATASE 71 U/L (38-126); ANION GAP 10 (5-19); ASPARTATE AMINO TRANSFERASE 30 U/L (14-36); BILIRUBIN,DIRECT 0.1 mg/dL (0.0-0.4); BILIRUBIN,TOTAL 0.3 mg/dL (0.2-1.3); BLOOD UREA NITROGEN 16 mg/dL (7-20); CALCIUM 9.3 mg/dL (8.4-10.2); CARBON DIOXIDE 30 mmol/L (22-30); CHLORIDE 100 mmol/L (98-107); CREATINE KINASE 44 U/L (30-135); GLUCOSE 122 mg/dL (75-110); POTASSIUM 4.8 mmol/L (3.6-5.0); SODIUM 139.8 mmol/L (137-145); TOTAL PROTEIN 7.1 g/dL (6.3-8.2)
[2018-07-21 11:55] LABS: CREATINE KINASE MB 0.96 ng/mL (<4.55); NT PRO BNP 153 pg/mL (<450)
[2018-07-21 11:56] LABS: TROPONIN I < 0.012 ng/mL
--- NOTE | 2018-07-21 12:22 | RADIOLOGY REPORT (SQ) ---
EXAM DESCRIPTION: CHEST SINGLE VIEW COMPLETED DATE/TIME: 07/21/2018 11:08 am REASON FOR STUDY: Shortness of breath COMPARISON: Chest x-ray 03/02/2018, 12/11/2017 EXAM PARAMETERS: NUMBER OF VIEWS: One view. TECHNIQUE: Single frontal radiographic view of the chest acquired. RADIATION DOSE: NA LIMITATIONS: None. FINDINGS: LUNGS AND PLEURA: No consolidation, pneumothorax or pleural effusion. MEDIASTINUM AND HILAR STRUCTURES: No masses. Contour normal. HEART AND VASCULAR STRUCTURES: The heart is mildly enlarged. There is mild central vascular congesti on. BONES: No acute findings. HARDWARE: None in the chest. IMPRESSION: Mild cardiomegaly and mild central vascular congestion. TECHNICAL DOCUMENTATION: JOB ID: [id number] 2010 [employer]- All Rights Reserved Reading location - IP/workstation name: [email or web address]
--- NOTE | 2018-07-21 13:10 | EKG REPORT ---
SEVERITY:- ABNORMAL ECG - SINUS RHYTHM INFERIOR INFARCT, OLD : Confirmed by: Alis Adam MD 21-Jul-2018 13:08:52
--- NOTE | 2018-07-21 15:29 | RADIOLOGY REPORT (SQ) ---
EXAM DESCRIPTION: CTA CHEST COMPLETED DATE/TIME: 07/21/2018 2:52 pm REASON FOR STUDY: Shortness of breath COMPARISON: Chest x-ray 07/21/2018. CT angiogram chest 10/17/2017, 12/07/2014. TECHNIQUE: CT scan of the chest performed using helical scanning technique with dynamic intravenous contrast injection. Images reviewed with lung, soft tissue and bone windows. Reconstructed coronal and sagittal MPR images reviewed. Additional 3 dimensional post-processing performed to develop Maximal Intensity Projection images (AR P). All images stored on PACS. All CT scanners at this facility use dose modulation, iterative reconstruction, and/or weight based d osing when appropriate to reduce radiation dose to as low as reasonably achievable (ALARA). [facility]: Dose Right [facility]: CareDose [facility]: Dose Right [facility]: Teradose 4D [facility]: AVOB CONTRAST TYPE AND DOSE: contrast/concentration: Isovue 350.00 mg/ml; Total Contrast Delivered: 90.0 ml; Total Saline Delivered: 80.0 ml Contrast bolus optimized for the pulmonary arteries. Not diagnostic for the aorta. RENAL FUNCTION: Creatinine 0.55 RADIATION DOSE: CT Rad equipment meets quality standard of care and radiation dose reduction techniq ues were employed. CTDIvol: 34.6 - 49.6 mGy. DLP: 1218 mGy-cm. . LIMITATIONS: None. FINDINGS: LUNGS AND PLEURA: No consolidation, pleural effusion or pneumothorax. 8 mm pulmonary nodu le at the right middle lobe, this measured [address] chest from 12/07/2014. 9 mm pulmonary nodule at the right lower lobe, this measured [address] chest from 12/07/2014. Additionally, there are new pulmonary nodules at the right lower lobe measuring 4 mm and 5 mm respectively (axial image 64/12 1). There is a calcified granuloma at the right lower lobe. AORTA AND GREAT VESSELS: No thoracic aortic aneurysm. Contrast bolus not optimized for the aorta. HEART: The heart is enlarged. No pericardial effusion. PULMONARY ARTERIES: No emboli visualized in the main pulmonary arteries or the segmental branches. HILAR AND MEDIASTINAL STRUCTURES: No identified masses or abnormal nodes. HARDWARE: None in the chest. UPPER ABDOMEN: No significant findings. Limited exam. THYROID AND OTHER SOFT TISSUES: No masses. No adenopathy. BONES: Multilevel degenerative changes at the spine. 3D MIPS: Confirm above findings. IMPRESSION: 1. No pulmonary emboli. 2. Cardiomegaly. 3. Mild increase in the size and numbers of the pulmonary nodules at the right lung measuring up to 9 mm. Further evaluation with PET/CT recommended to exclude neoplasm. COMMENT: Quality ID # [id number]: Final reports with documentation of one or more dose reduction techniques (e.g., Automated exposure control, adjustment of the mA and/or kV according to patient size, use of iterative reconstruction technique) TECHNICAL DOCUMENTATION: JOB ID: [id number] 2010 [employer]- All Rights Reserved Reading location - IP/workstation name: [email or web address]
[2018-07-21 17:41] VITALS: BP 139/61
== END 2018-07-21 17:51 | disposition home or self-care (01) ==
LOC: ER 10:03
DX: J45.909 Unspecified asthma, uncomplicated (principal); I50.9 Heart failure, unspecified; R06.02 Shortness of breath; I25.10 Atherosclerotic heart disease of native coronary artery without angina pectoris; R09.81 Nasal congestion; R05 Cough; I11.0 Hypertensive heart disease with heart failure
CPT/HCPCS: 93005; 99285; 96374; 36415; 82553; 82550; 85025; 80053; 84484; 83880; 71045; 71275; 93010; J1940

== ENCOUNTER 2018-07-23 11:55 | Emergency (ER) | payer MEDICARE, MEDICAID ==
--- NOTE | 2018-07-23 12:33 | ER Document Report ---
ED Respiratory Problem - General Chief Complaint: Shortness Of Breath Stated Complaint: SHORTNESS OF BREATH Time Seen by Provider: 07/23/18 12:10 Notes: 77-year-old female history of CHF presents to the emergency department complaining of difficulty breathing for a week. She was here on Sunday but still states she is short of breath. Patient was given a prescription for Lasix she has not been able to fill it. Patient complains of leg swelling. Difficulty breathing worse when she lays flat. She denies chest pain. States she just feels very congested denies sore throat. Has had a nonproductive cough. Denies nausea or vomiting. TRAVEL OUTSIDE OF THE [place] IN LAST 30 DAYS: No - Related Data Allergies/Adverse Reactions: oxytetracycline [From Terramycin] Allergy (Severe, Verified 07/23/18 13:48) Throat swells oxytetracycline HCl [From Terramycin] Allergy (Severe, Verified 07/23/18 13:48) Throat swells Penicillins Allergy (Severe, Verified 07/23/18 13:48) Swelling sulfamethoxazole [From Septra] Allergy (Severe, Verified 07/23/18 13:48) Headaches trimethoprim [From Septra] Allergy (Severe, Verified 07/23/18 13:48) Headaches acetaminophen [From Tylenol] Allergy (Unknown, Verified 07/23/18 13:48) nitroglycerin Allergy (Verified 07/23/18 13:48) mycins Allergy (Severe, Uncoded 07/23/18 13:48) Hives PPD Allergy (Severe, Uncoded 07/23/18 13:48) Cardiac arrest Past Medical History - Social History Smoking Status: Unknown if Ever Smoked Family History: Reviewed & Not Pertinent - Past Medical History Cardiac Medical History: Reports: Hx Congestive Heart Failure, Hx Heart Attack - Age 26, Hx Hypercholesterolemia, Hx Hypertension Pulmonary Medical History: Reports: Hx Asthma, Hx Pneumonia - yrs ago Denies: Hx Bronchitis, Hx COPD Neurological Medical History: Reports: Hx Cerebrovascular Accident - Age 26 (Mini). Denies: Hx Seizures Renal/ Medical History: Reports: Hx Kidney Stones. Denies: Hx Peritoneal Dialysis GI Medical History: Reports: Hx Diverticulitis Musculoskeletal Medical History: Reports Hx Arthritis - Legs & Back Past Surgical History: Reports: Hx Abdominal Surgery - exploratory, Hx Appendectomy, Hx Section, Hx Hysterectomy, Hx Tonsillectomy, Hx Tubal Ligation - Immunizations Hx Diphtheria, Pertussis, Tetanus Vaccination: Yes Hx Pneumococcal Vaccination: 03/04/17 Review of Systems - Review of Systems Constitutional: denies: Chills, Fever Cardiovascular: Edema. denies: Chest pain Respiratory: Cough, Short of breath, Wheezing Gastrointestinal: denies: Abdominal pain, Nausea, Vomiting -: Yes All other systems reviewed and negative Physical Exam - Notes Notes: GENERAL_APPEARANCE: well_nourished, alert, cooperative, no_acute_distress, no_obvious_discomfort. VITALS: reviewed, see vital signs table. HEAD: no_swelling\tenderness on the head. EYES: PERRL, EOMI, conjunctiva_clear. NOSE: no_nasal_discharge. MOUTH: (-)decreased moisture. THROAT: no_tonsilar_inflammation, no_airway_obstruction. no_lymphadenopathy NECK: supple, no_neck_tenderness, (-)thyromegaly. BACK: no_back_tenderness. CHEST_WALL: no_chest_tenderness. LUNGS: Diffuse_wheezing, basilar_rales, no_rhonchi, (-)accessory muscle use, good air exchange bilateral. HEART: normal_rate, normal_rhythm, normal_S1, normal_S2, (-)S3, (-)S4, no_murmur, no_rub. ABDOMEN: normal_BS, soft, no_abd_tenderness, (-)guarding, (-)rebound, no_organomegaly, no_abd_masses. EXTREMITIES: good pulses in all_extremities, no_swelling\tenderness in the extremities, 2+_edema. SKIN: warm, dry, good_color, no_rash. MENTAL_STATUS: speech_clear, oriented_X_3, normal_affect, r esponds_appropriately to questions. Course - Re-evaluation Re-evalutation: 07/23/18 12:36 77-year-old female presents with dyspnea. We will go ahead and work her up again. She does have wheezing and crackles. We will give her an aerosol treatment. 07/23/18 14:30 The patient refuses to have any blood work drawn. Better. She wants to go home. I sent spoke with her that we really need to complete the workup. The patient still has the prescription from the prior visit for the Lasix. I stressed the importance of taking Lasix. She stated she already had some at home. I tried to convince her to stay and get the workup. However after the aerosol treatment states she is feeling better and wants to go home. She ended up signing out AMA. I invited her to return if she changes her mind. - Laboratory Laboratory results interpreted by me: 07/23/18 12:58 Urine Ascorbic Acid 20 H - Diagnostic Test Radiology reviewed: Reports reviewed Radiology results interpreted by me: 07/23/18 14:30 Chest X-Ray 07/23/18 11:59 IMPRESSION: NO ACUTE RADIOGRAPHIC FINDING IN THE CHEST. - EKG Interpretation by Me EKG shows normal: Sinus rhythm Voltage: Consistant with LVH When compared to previous EKG there are: No significant change Discharge - Discharge Clinical Impression: CHF (congestive heart failure) Condition: Fair Disposition: AGAINST MEDICAL ADVICE Instructions: Congestive Heart Failure ([facility]) Additional Instructions: Please take your Lasix as prescribed, if you change your mind do not improve or feel better please return to the ER as soon as possible
[2018-07-23] MEDS ORDERED: IPRATROPIUM/ALBUTEROL 0.5-2.5 MG/3 ML AMPUL NEB ONE (12:35)
--- NOTE | 2018-07-23 12:45 | RADIOLOGY REPORT (SQ) ---
EXAM DESCRIPTION: CHEST SINGLE VIEW COMPLETED DATE/TIME: 07/23/2018 12:34 pm REASON FOR STUDY: bed mp db COMPARISON: 07/21/2018 EXAM PARAMETERS: NUMBER OF VIEWS: One view. TECHNIQUE: Single frontal radiographic view of the chest acquired. RADIATION DOSE: NA LIMITATIONS: None. FINDINGS: LUNGS AND PLEURA: No opacities, masses or pneumothorax. No pleural effusion. MEDIASTINUM AND HILAR STRUCTURES: No masses. Contour normal. HEART AND VASCULAR STRUCTURES: Heart normal in size. Normal vasculature. BONES: No acute findings. HARDWARE: None in the chest. OTHER: No other significant finding. IMPRESSION: NO ACUTE RADIOGRAPHIC FINDING IN THE CHEST. TECHNICAL DOCUMENTATION: JOB ID: [id number] [employer]- All Rights Reserved Reading location - IP/workstation name: [email or web address]
[2018-07-23 13:11] LABS: APPEARANCE,URINE SLIGHTLY-CLOUDY; BILIRUBIN,URINE NEGATIVE (NEGATIVE); COLOR,URINE YELLOW; GLUCOSE, URINE NEGATIVE (NEGATIVE); KETONES,URINE NEGATIVE (NEGATIVE); LEUKOCYTE ESTERASE,URINE NEGATIVE (NEGATIVE); NITRITE,URINE NEGATIVE (NEGATIVE); PROTEIN,URINE NEGATIVE (NEGATIVE); URINE SPECIFIC GRAVITY 1.009; UROBILINOGEN,URINE NEGATIVE mg/dL (<2.0)
[2018-07-23 14:36] VITALS: BP 120/53
--- NOTE | 2018-07-23 17:44 | EKG REPORT ---
SEVERITY:- BORDERLINE ECG - SINUS RHYTHM BORDERLINE INFERIOR Q WAVES : Confirmed by: Jeff Machado MD 23-Jul-2018 17:43:49
== END 2018-07-23 14:30 | disposition left against medical advice (07) ==
LOC: ER 11:55
DX: I50.9 Heart failure, unspecified (principal); R06.02 Shortness of breath; M79.89 Other specified soft tissue disorders; E78.00 Pure hypercholesterolemia, unspecified; I11.0 Hypertensive heart disease with heart failure; Z88.0 Allergy status to penicillin; Z88.3 Allergy status to other anti-infective agents; Z88.6 Allergy status to analgesic agent; Z90.710 Acquired absence of both cervix and uterus; I25.2 Old myocardial infarction
CPT/HCPCS: 93005; 99285; 81001; 71045; 93010; A9270; 36415; J7620

== ENCOUNTER 2018-08-13 23:03 | Emergency (ER) | payer MEDICARE, MEDICAID ==
--- NOTE | 2018-08-13 23:38 | RADIOLOGY REPORT (SQ) ---
2 VIEWS OF THE RIGHT SHOULDER HISTORY: Joint pain. COMPARISON: None. FINDINGS: There is anterior inferior dislocation of the right shoulder with respect to the glenoid rim. No definite fracture fragment is seen. There are degenerative changes of the acromioclavicular joint. IMPRESSION: Anterior glenohumeral dislocation.
--- NOTE | 2018-08-13 23:56 | ER Document Report ---
ED Extremity Problem, Upper - General Chief Complaint: Shoulder Injury Stated Complaint: SHOULDER INJURY Time Seen by Provider: 08/13/18 23:56 Primary Care Provider: SKINNY YEPEZ MD [ACTIVE STAFF] - Follow up as needed Mode of Arrival: Stretcher Information source: Patient Notes: HISTORY OF PRESENT ILLNESS: Patient is a 78-year-old female with a past medical history of multiple chronic conditions including previous stroke who presents with right shoulder pain after mechanical fall onto her right shoulder at home. She denies hitting her head or having an episode of loss of consciousness, no confusion or disorientation after the incident, has been able to ambulate per her baseline with a walker. Mechanism of injury: "I tripped and fell forward and landed on my right shoulder" Location: Right shoulder Onset: Acute prior to arrival Provocation: Movement Quality: Aching, throbbing Radiation: None Severity: Moderate to severe Timing: Constant Numbness/Tingling: None Dominant hand: Right REVIEW OF SYSTEMS: CONSTITUTIONAL : Denies fever or chills, no sweats. Denies recent illness. EENT: Denies eye, ear, throat, or mouth pain or symptoms. Denies nasal or sinus congestion. CARDIOVASCULAR: Denies chest pain. RESPIRATORY: Denies cough, cold, or chest congestion. Denies shortness of breath, difficulty breathing, or wheezing. GASTROINTESTINAL: Denies abdominal pain. Denies nausea, vomiting, or diarrhea. Denies constipation. GENITOURINARY: Denies difficulty urinating, painful urination, burning, frequency, or blood in urine. FEMALE GENITOURINARY: Denies vaginal bleeding, abnormal or irregular periods. MUSCULOSKELETAL: Positive for right shoulder pain with reduced movement. SKIN: Denies rash or skin lesions. HEMATOLOGIC : Denies easy bruising or bleeding. LYMPHATIC: Denies swollen, enlarged glands. NEUROLOGICAL: Denies weakness or paralysis or loss of use of either side. Denies problems with gait or speech. Denies sensory or motor loss. PSYCHIATRIC: Denies anxiety or stress or depression. All other systems reviewed and negative. PHYSICAL EXAMINATION: GENERAL: Appears in pain, well-nourished and in no acute distress. HEAD: Atraumatic, normocephalic. No scalp deformity, depression, or crepitance. EYES: Pupils are 3 mm and equal/round/reactive to light, extraocular movements intact, sclera anicteric, conjunctiva are normal. ENT: Nares patent bilaterally, oropharynx clear without exudates or palatal petechia. Moist mucous membranes. No tonsil hypertrophy. NECK: Normal range of motion, supple without lymphadenopathy. LUNGS: Breath sounds present, equal, and clear to auscultation bilaterally. No wheezes, rales, or rhonchi. HEART: Regular rate and rhythm without murmurs, rubs, or gallops. 2+ peripheral pulses. Normal capillary refill. ABDOMEN: Soft, nontender, nondistended. Normoactive bowel sounds. No guarding, no rebound. No masses appreciated. BACK: Normal contour, no midline tenderness. Rectal exam deferred. GENITAL/PELVC: Deferred. EXTREMITIES: Obvious deformity with reduced range of motion to the right shoulder, sensation is intact. NEUROLOGICAL: No focal neurological deficits. Moves all extremities spontaneously and on command. PSYCH: Normal mood, normal affect. No suicidal thoughts/ideations. No homocidal thoughts/ideations. No hallucinations. SKIN: Warm, dry, normal turgor, no rashes or lesions noted. ASSESSMENT AND PLAN: This patient is a 78-year-old female who presents with right shoulder pain after mechanical fall that could be fracture versus location. 1. Initial x-rays show anterior dislocation of the right humeral head. 2. Will perform intra-articular lidocaine injection and attempted scapular manipulation for joint reduction. TRAVEL OUTSIDE OF THE [place] IN LAST 30 DAYS: No - Related Data Allergies/Adverse Reactions: oxytetracycline [From Terramycin] Allergy (Severe, Verified 07/23/18 13:48) Throat swells oxytetracycline HCl [From Terramycin] Allergy (Severe, Verified 07/23/18 13:48) Throat swells Penicillins Allergy (Severe, Verified 07/23/18 13:48) Swelling sulfamethoxazole [From Septra] Allergy (Severe, Verified 07/23/18 13:48) Headaches trimethoprim [From Septra] Allergy (Severe, Verified 07/23/18 13:48) Headaches acetaminophen [From Tylenol] Allergy (Unknown, Verified 07/23/18 13:48) nitroglycerin Allergy (Verified 07/23/18 13:48) mycins Allergy (Severe, Uncoded 07/23/18 13:48) Hives PPD Allergy (Severe, Uncoded 07/23/18 13:48) Cardiac arrest Past Medical History - General Information source: Patient - Social History Smoking Status: Never Smoker Chew tobacco use (# tins/day): No Frequency of alcohol use: None Drug Abuse: None Lives with: Alone Family History: Reviewed & Not Pertinent Patient has suicidal ideation: No Patient has homicidal ideation: No - Past Medical History Cardiac Medical History: Reports: Hx Congestive Heart Failure, Hx Heart Attack - Age 26, Hx Hypercholesterolemia, Hx Hypertension Pulmonary Medical History: Reports: Hx Asthma, Hx Pneumonia - yrs ago Denies: Hx Bronchitis, Hx COPD EENT Medical History: Reports: None Neurological Medical History: Reports: Hx Cerebrovascular Accident - Age 26 (Mini). Denies: Hx Seizures Endocrine Medical History: Reports: None Renal/ Medical History: Reports: Hx Kidney Stones. Denies: Hx Peritoneal Dialysis Malignancy Medical History: Reports: None GI Medical History: Reports: Hx Diverticulitis Musculoskeletal Medical History: Reports Hx Arthritis - Legs & Back Skin Medical History: Reports None Psychiatric Medical History: Reports: None Traumatic Medical History: Reports: None Infectious Medical History: Reports: None Past Surgical History: Reports: Hx Abdominal Surgery - exploratory, Hx Appendectomy, Hx Section, Hx Hysterectomy, Hx Tonsillectomy, Hx Tubal Ligation - Immunizations Immunizations up to date: Yes Hx Diphtheria, Pertussis, Tetanus Vaccination: Yes History of Influenza Vaccine for 03/2017 - 08/2017 Season: No Hx Pneumococcal Vaccination: 03/04/17 Physical Exam - Vital signs Vitals: Temp Pulse Resp BP Pulse Ox 98.1 F 71 17 131/68 H 97 08/13/18 23:07 08/13/18 23:07 08/13/18 23:07 08/13/18 23:07 08/13/18 23:07 Course - Re-evaluation Re-evalutation: 08/14/18 00:56 Reduction seemingly has been successful, please see procedure note for details. Patient had an intra-articular lidocaine injection of 30 mL for anesthesia. Postreduction films are pending. Patient will have shoulder immobilizer applied. 08/14/18 01:53 Repeat x-rays show successful reduction of right anterior shoulder dislocation. Patient does report that she has a letterpress printing machinist that helps her at home, however he is not there currently. Patient also uses a walker to ambulate. Given this, patient is unlikely to be able to ambulate with only one arm. Plan will be to keep the patient on to the morning and have social media senior associate/case supervisorhotel operation manager discharge planning options. - Vital Signs Vital signs: Temp Pulse Resp BP Pulse Ox 98.1 F 89 22 H 148/78 H 98 08/13/18 23:07 08/14/18 00:14 08/14/18 00:14 08/14/18 00:14 08/14/18 00:14 - Diagnostic Test Radiology reviewed: Image reviewed, Reports reviewed Procedures - Joint Reduction/Fracture Care Right Shoulder Time completed: 01:40 Consent obtained: Yes Conscious sedation: No Pre-procedure NV exam: Yes Manipulation comment: Scapular manipulation Post-procedure NV exam: Yes Post-reduction x-ray: Joint reduced Reduction attempts: 1 Complications: No Discharge - Discharge Clinical Impression: Anterior dislocation of right shoulder Qualifiers: Encounter type: initial encounter Qualified Code(s): S43.014A - Anterior dislocation of right humerus, initial encounter Condition: Good Disposition: HOME, SELF-CARE Instructions: Shoulder Dislocation ([facility]) Additional Instructions: You have been evaluated in the Emergency Department for a right shoulder dislocation that is now been reduced. While here, you had x-rays and it is now safe to be discharged home. Please follow-up with your primary physician as well as an orthopedist as instructed in 1 week to be rechecked. Return to the Emergency Department if you experience worsening pain of the shoulder, numbness/tingling of the arm, or any other concerning symptoms. Prescriptions: Diclofenac Sodium 75 mg PO BID #30 tablet. Referrals: SKINNY YEPEZ MD [ACTIVE STAFF] - Follow up as needed Print Language: [place]
[2018-08-13] MEDS ORDERED: LIDOCAINE 1% INJ-PF (10 MG/ML) 30 ML SDV INFIL ONE (23:57)
[2018-08-13] MEDS ORDERED: MORPHINE SULFATE 10 MG/ML INJ IM ONE (23:57)
[2018-08-14] MEDS ORDERED: OXYCODONE HCL IR 5 MG TABLET PO ONE (00:54)
--- NOTE | 2018-08-14 01:15 | RADIOLOGY REPORT (SQ) ---
EXAM DESCRIPTION: XR SHOULDER COMPLETED DATE/TME: 08/14/2018 00:54 CLINICAL HISTORY: 78 years Female, Post reduction COMPARISON: None. Findings: Interval improved alignment of the glenohumeral joint as estimated on oblique-AP views. Small likely osteophytes of the right humeral head. Bones, joints, and soft tissues of the RIGHT XR SHOULDER 2 VIEW appear otherwise unremarkable. IMPRESSION: Interval improved alignment of the glenohumeral joint as estimated on oblique views. Consider further evaluation with dedicated axillary or scapular Y views and/or CT as warranted.
[2018-08-14] MEDS: OXYCODONE HCL IR 5 MG TABLET PO PRN ×2 (04:04→14:43)
--- NOTE | 2018-08-14 12:10 | ER Document Report ---
Doctor's Note Notes: 08/14/18 12:09 Patient awaiting discharge. Discharge planning assisting with patient's disposition. Patient was sitting in a chair at bedside and slipped out of it and fell to the floor. Says she reinjured her right shoulder. I will re-x-ray. Does not complain of any other injury from the fall. Hayde Frey MD 08/14/18 12:47 Shoulder appears to be back into its proper alignment in the glenoid fossa. No fracture seen. Hayde Frey MD
--- NOTE | 2018-08-14 12:47 | RADIOLOGY REPORT (SQ) ---
EXAM DESCRIPTION: SHOULDER RIGHT 2 OR MORE VIEWS COMPLETED DATE/TIME: 08/14/2018 12:30 pm REASON FOR STUDY: Dislocated last night; fell in ER, reinjured COMPARISON: 08/14/2018 and 08/13/2018. NUMBER OF VIEWS: Three views. TECHNIQUE: Internal rotation, external rotation, and Y view images acquired of the right shoulder. LIMITATIONS: None. FINDINGS: MINERALIZATION: Normal. BONES: No acute fracture or dislocation. No worrisome bone lesions. JOINTS: No dislocation. VISUALIZED LUNGS AND RIBS: No pneumothorax. No rib fracture. SOFT TISSUES: No radiopaque foreign body. OTHER: No other significant finding. IMPRESSION: NEGATIVE STUDY OF THE RIGHT SHOULDER. NO RADIOGRAPHIC EVIDENCE OF ACUTE INJURY. TECHNICAL DOCUMENTATION: JOB ID: [id number] [employer]- All Rights Reserved Reading location - IP/workstation name: [email or web address]
[2018-08-14 17:28] VITALS: BP 139/75
== END 2018-08-14 17:55 | disposition home or self-care (01) ==
LOC: ER 23:03
PROC: 0RSJXZZ Reposition Right Shoulder Joint, External Approach (ICD-10-PCS; principal; 2018-08-13)
DX: S49.91XA Unspecified injury of right shoulder and upper arm, initial encounter (principal); M25.511 Pain in right shoulder; W19.XXXA Unspecified fall, initial encounter; I50.9 Heart failure, unspecified; I25.2 Old myocardial infarction; I11.0 Hypertensive heart disease with heart failure; J45.909 Unspecified asthma, uncomplicated
CPT/HCPCS: 99284; 96374; 73020; 73030 ×2; 23650; L3650; J3490; J2270; A9270

== ENCOUNTER 2018-09-20 11:17 | Emergency (ER) | payer MEDICARE, MEDICAID ==
--- NOTE | 2018-09-20 11:48 | ER Document Report ---
ED General - General Chief Complaint: Shortness Of Breath Stated Complaint: SHORTNESS OF BREATH Time Seen by Provider: 09/20/18 11:28 Notes: 77-year-old female with history of CHF, coronary artery disease, hypertension and recent right shoulder subluxation presents to the emergency department for right shoulder pain and for shortness of breath. Patient states she ran out of her medications yesterday. She states that "I do not think they have a, shoulder back in the place". She left her sling in the [employer] buggy and has been using her left arm to support her painful right arm. Shortness of breath is been going on for a couple of days. She denies history of COPD. She states she cannot walk as far she usually does. She states her legs are swollen worse than they have ever been. She denies fever, chills, recent illness, chest pain, nausea, vomiting, diarrhea, urinary symptoms. TRAVEL OUTSIDE OF THE [place] IN LAST 30 DAYS: No - Related Data Allergies/Adverse Reactions: oxytetracycline [From Terramycin] Allergy (Severe, Verified 07/23/18 13:48) Throat swells oxytetracycline HCl [From Terramycin] Allergy (Severe, Verified 07/23/18 13:48) Throat swells Penicillins Allergy (Severe, Verified 07/23/18 13:48) Swelling sulfamethoxazole [From Septra] Allergy (Severe, Verified 07/23/18 13:48) Headaches trimethoprim [From Septra] Allergy (Severe, Verified 07/23/18 13:48) Headaches acetaminophen [From Tylenol] Allergy (Unknown, Verified 07/23/18 13:48) nitroglycerin Allergy (Verified 07/23/18 13:48) mycins Allergy (Severe, Uncoded 07/23/18 13:48) Hives PPD Allergy (Severe, Uncoded 07/23/18 13:48) Cardiac arrest Past Medical History - Social History Smoking Status: Never Smoker Family History: Reviewed & Not Pertinent - Past Medical History Cardiac Medical History: Reports: Hx Congestive Heart Failure, Hx Heart Attack - Age 26, Hx Hypercholesterolemia, Hx Hypertension Pulmonary Medical History: Reports: Hx Asthma, Hx Pneumonia - yrs ago Denies: Hx Bronchitis, Hx COPD Neurological Medical History: Reports: Hx Cerebrovascular Accident - Age 26 (Mini). Denies: Hx Seizures Renal/ Medical History: Reports: Hx Kidney Stones. Denies: Hx Peritoneal Dialysis GI Medical History: Reports: Hx Diverticulitis Musculoskeletal Medical History: Reports Hx Arthritis - Legs & Back Past Surgical History: Reports: Hx Abdominal Surgery - exploratory, Hx Appen dectomy, Hx Section, Hx Hysterectomy, Hx Tonsillectomy, Hx Tubal Ligation - Immunizations Immunizations up to date: Yes Hx Diphtheria, Pertussis, Tetanus Vaccination: Yes Hx Pneumococcal Vaccination: 03/04/17 Review of Systems - Review of Systems Constitutional: See HPI EENT: No symptoms reported Cardiovascular: See HPI Respiratory: See HPI Gastrointestinal: See HPI Genitourinary: See HPI Female Genitourinary: No symptoms reported Musculoskeletal: No symptoms reported Skin: No symptoms reported Hematologic/Lymphatic: No symptoms reported Neurological/Psychological: No symptoms reported Physical Exam - Vital signs Vitals: Temp Pulse Resp BP Pulse Ox 97.4 F 88 18 130/80 H 98 09/20/18 11:26 09/20/18 11:26 09/20/18 11:26 09/20/18 11:26 09/20/18 11:26 - Notes Notes: PHYSICAL EXAMINATION: Reviewed vital signs and charting by RN GENERAL: Alert, interacts well. No acute distress. HEAD: Normocephalic, atraumatic. EYES: Pupils equal and round. Extraocular movements intact. ENT: Oral mucosa moist, tongue midline. NECK: Full range of motion. Supple. Trachea midline. LUNGS: Clear to auscultation bilaterally, no wheezes, rales, or rhonchi. No re spiratory distress. HEART: Regular rate and rhythm. No murmur ABDOMEN: soft, non-tender. Non-distended. Bowel sounds present. no McBurney's point tenderness, no Sun sign. EXTREMITIES: Moves all 4 extremities spontaneously. 2+ pitting edema bilateral lower extremities. No cyanosis. Normal distal neurovascular exam. Pain with any active or passive range of motion with right shoulder limiting exam. Tenderness to palpation over the deltoid anterior and medial heads BACK: No CVAT NEUROLOGIC: Oriented and appropriate. Normal speech. PSYCH: Normal affect, normal mood. SKIN: Warm, dry, normal turgor. No rashes or lesions noted. Course - Re-evaluation Re-evalutation: 09/20/18 11:47 Overall well-appearing. Patient initially did not want to get lab work she said her son needs from needles. I explained to her that the needles, the package sterile and the risk is minuscule. She agreed to get blood work drawn. 09/20/18 14:22 ProBNP elevated 10 times from previous in July, patient does state her shortness of breath is mildly improved but she is labored. I asked her friend at the bedside if this was normal for her and she says she does look like that all the time. I told the patient I would like to give her Lasix IV and she adamantly refused an IV. I will give her Lasix 80 mg p.o. 1 time. Patient wishes to leave and she is stable, vital signs are stable, and she is safe for discharge at this time. She is requesting a refill on her Lasix. I told her this is not the proper venue to do so. 09/20/18 14:27 - Vital Signs Vital signs: Temp Pulse Resp BP Pulse Ox 97.4 F 88 18 130/80 H 98 09/20/18 11:26 09/20/18 11:26 09/20/18 11:26 09/20/18 11:26 09/20/18 11:26 - Laboratory Result Diagrams: 09/20/18 13:00 09/20/18 13:00 Laboratory results interpreted by me: 09/20/18 09/20/18 13:00 13:00 RDW 15.3 H NT-Pro-B Natriuret Pep 1780 H Discharge - Discharge Clinical Impression: CHF exacerbation Qualifiers: Heart failure type: unspecified Qualified Code(s): I50.9 - Heart failure, unspecified Condition: Good Disposition: HOME, SELF-CARE Instructions: Congestive Heart Failure ([facility]) Additional Instructions: You are seen in the emergency department this afternoon for a CHF exacerbation. Because you have heart failure your heart does not pump blood adequately and it causes fluid overload which can build up in your lungs making it difficult to breathe. This is the cause of your shortness of breath. I have given you Lasix here in the emergency department. This will help you P out some of the fluid. Also, given you a very short prescription for Lasix that he can get filled. It is critical that you establish a new primary care doctor. If you become dehydrated, lightheaded or dizzy, have acute shortness of breath and cannot breathe, chest pain, please immediately return to the emergency department for reevaluation.
--- NOTE | 2018-09-20 12:16 | RADIOLOGY REPORT (SQ) ---
EXAM DESCRIPTION: SHOULDER RIGHT 1 VIEW COMPLETED DATE/TIME: 09/20/2018 12:09 pm REASON FOR STUDY: fall COMPARISON: 08/14/2018 NUMBER OF VIEWS: One view. TECHNIQUE: AP images acquired of the right shoulder. LIMITATIONS: None. FINDINGS: MINERALIZATION: Osteopenia. BONES: No acute fracture or dislocation. No worrisome bone lesions. JOINTS: No dislocation. VISUALIZED LUNGS AND RIBS: No pneumothorax. No rib fracture. SOFT TISSUES: No radiopaque foreign body. OTHER: No other significant finding. IMPRESSION: NEGATIVE STUDY OF THE RIGHT SHOULDER. NO RADIOGRAPHIC EVIDENCE OF ACUTE INJURY. TECHNICAL DOCUMENTATION: JOB ID: [id number] [employer]- All Rights Reserved Reading location - IP/workstation name: [email or web address]
[2018-09-20 13:17] LABS: ABSOLUTE BASOPHILS # (AUTO) 0.1 10^3/uL (0.0-0.2); ABSOLUTE EOSINOPHILS # (AUTO) 0.2 10^3/uL (0.0-0.6); ABSOLUTE LYMPHOCYTES (AUTO) 1.1 10^3/uL (0.5-4.7); ABSOLUTE MONOCYTES (AUTO) 0.8 10^3/uL (0.1-1.4); ABSOLUTE NEUT (AUTO) 6.1 10^3/uL (1.7-8.2); BASOPHILS % (AUTO) 0.6 % (0-2); EOSINOPHILS % (AUTO) 2.7 % (0-6); HEMATOCRIT 39.2 % (36.0-47.0); LYMPHOCYTES % (AUTO) 13.6 % (13-45); MEAN CORPUSCULAR HEMOGLOBIN 28.2 pg (27.0-33.4); MEAN CORPUSCULAR HGB CONC 33.3 g/dL (32.0-36.0); MEAN CORPUSCULAR VOLUME 85 fl (80-97); PLATELET COUNT 275 10^3/uL (150-450); RED BLOOD COUNT 4.62 10^6/uL (3.72-5.28); RED CELL DISTRIBUTION WIDTH 15.3 % (11.5-14.0); SEGMENTED NEUTROPHILS % (AUTO) 73.1 % (42-78); TOTAL CELLS COUNTED % (AUTO) 100 %; WHITE BLOOD COUNT 8.4 10^3/uL (4.0-10.5)
[2018-09-20 13:39] LABS: ALANINE AMINOTRANSFERASE 36 U/L (9-52); ALKALINE PHOSPHATASE 74 U/L (38-126); ANION GAP 11 (5-19); ASPARTATE AMINO TRANSFERASE 23 U/L (14-36); BILIRUBIN,DIRECT 0.2 mg/dL (0.0-0.4); BILIRUBIN,TOTAL 0.4 mg/dL (0.2-1.3); BLOOD UREA NITROGEN 19 mg/dL (7-20); CALCIUM 9.7 mg/dL (8.4-10.2); CARBON DIOXIDE 23 mmol/L (22-30); CHLORIDE 103 mmol/L (98-107); GLUCOSE 103 mg/dL (75-110); POTASSIUM 4.4 mmol/L (3.6-5.0); SODIUM 137.1 mmol/L (137-145); TOTAL PROTEIN 7.1 g/dL (6.3-8.2)
[2018-09-20] MEDS ORDERED: FUROSEMIDE 80 MG TABLET PO ONE (14:16)
[2018-09-20] MEDS ORDERED: FUROSEMIDE 40 MG TABLET PO ONE (14:24)
[2018-09-20 14:50] VITALS: BP 152/84
== END 2018-09-20 15:05 | disposition home or self-care (01) ==
LOC: ER 11:17
DX: I11.0 Hypertensive heart disease with heart failure (principal); I50.9 Heart failure, unspecified; J45.909 Unspecified asthma, uncomplicated; M25.511 Pain in right shoulder; R06.02 Shortness of breath; R60.0 Localized edema; I25.10 Atherosclerotic heart disease of native coronary artery without angina pectoris; Z88.1 Allergy status to other antibiotic agents; Z88.0 Allergy status to penicillin; Z88.6 Allergy status to analgesic agent; Z88.7 Allergy status to serum and vaccine
CPT/HCPCS: 99284; 36415; 85025; 80053; 83880; 73020; A9270

== ENCOUNTER 2018-10-16 10:24 | Emergency (ER) | payer MEDICARE, MEDICAID ==
[2018-10-16] MEDS ORDERED: IPRATROPIUM/ALBUTEROL 0.5-2.5 MG/3 ML AMPUL NEB ONE (10:44)
--- NOTE | 2018-10-16 11:16 | ER Document Report ---
ED General - General Chief Complaint: Shortness Of Breath Stated Complaint: SHORTNESS OF BREATH Time Seen by Provider: 10/16/18 10:43 Notes: Patient is here for shortness of breath. She was sent here from the surgery center where she arrived today earlier than her scheduled procedure on her right shoulder. Staff at the facility felt that her shortness of breath was significant enough to send her to the ER. Patient was to have a scope procedure of her right shoulder for possible dislocation. The procedure is actually scheduled for tomorrow. Patient says that she is always short of breath and has been having shortness of breath for several months but is gotten worse in the past couple of days. Has had some cough but not much phlegm. Has a history of asthma. Has had occasional chest pains as well. No abdominal pains and no dom sea or vomiting or diarrhea. Has not had any fever. Patient has a history of hypertension, A. fib, and congestive heart failure. TRAVEL OUTSIDE OF THE [place] IN LAST 30 DAYS: No - Related Data Allergies/Adverse Reactions: oxytetracycline [From Terramycin] Allergy (Severe, Verified 10/16/18 10:26) Throat swells oxytetracycline HCl [From Terramycin] Allergy (Severe, Verified 10/16/18 10:26) Throat swells Penicillins Allergy (Severe, Verified 10/16/18 10:26) Swelling sulfamethoxazole [From Septra] Allergy (Severe, Verified 10/16/18 10:26) Headaches trimethoprim [From Septra] Allergy (Severe, Verified 10/16/18 10:26) Headaches acetaminophen [From Tylenol] Allergy (Unknown, Verified 10/16/18 10:26) nitroglycerin Allergy (Verified 10/16/18 10:26) mycins Allergy (Severe, Uncoded 10/16/18 10:26) Hives PPD Allergy (Severe, Uncoded 10/16/18 10:26) Cardiac arrest Past Medical History - Social History Smoking Status: Never Smoker Family History: Reviewed & Not Pertinent - Past Medical History Cardiac Medical History: Reports: Hx Atrial Fibrillation, Hx Congestive Heart Failure, Hx Heart Attack - Age 26, Hx Hypercholesterolemia, Hx Hypertension Pulmonary Medical History: Reports: Hx Asthma, Hx Pneumonia - yrs ago Denies: Hx COPD Neurological Medical History: Reports: Hx Cerebrovascular Accident - Age 26 (Mini) Renal/ Medical History: Reports: Hx Kidney Stones GI Medical History: Reports: Hx Diverticulitis Musculoskeletal Medical History: Reports Hx Arthritis - Legs & Back Past Surgical History: Reports: Hx Abdominal Surgery - exploratory, Hx Appendectomy, Hx Section, Hx Cholecystectomy, Hx Hysterectomy, Hx Tonsillectomy, Hx Tubal Ligation, Other - Several exploratory surgeries of the abdomen. - Immunizations Immunizations up to date: Yes Hx Diphtheria, Pertussis, Tetanus Vaccination: Yes Hx Pneumococcal Vaccination: 03/04/17 Review of Systems - Review of Systems Notes: REVIEW OF SYSTEMS: CONSTITUTIONAL : Denies fever. EENT: Denies eye, ear, nose or mouth or throat pain or other symptoms. CARDIOVASCULAR: Has occasional chest pain. None at this time. RESPIRATORY: See HPI. GASTROINTESTINAL: Denies abdominal pain or nausea, vomiting, or diarrhea. GENITOURINARY: Denies difficulty or painful urinating, urinary frequency, blood in urine. MUSCULOSKELETAL: Denies back or neck pain. Denies joint pain or swelling. SKIN: Denies rash or skin lesions. NEUROLOGICAL: Denies LOC or altered mental status. Denies headache. Denies sensory loss or motor deficits. ALL OTHER SYSTEMS REVIEWED AND NEGATIVE. Physical Exam - Vital signs Vitals: Temp Pulse Resp BP Pulse Ox 97.4 F 99 20 156/75 H 97 10/16/18 10:30 10/16/18 10:30 10/16/18 10:30 10/16/18 10:30 10/16/18 10:30 Interpretation: Normal Notes: PHYSICAL EXAMINATION: GENERAL: Well-appearing, in no acute distress. HEAD: Atraumatic, normocephalic. EYES: Pupils equal round and reactive to light, extraocular movements intact. ENT: oropharynx clear without exudates. Moist mucous membranes. NECK: Normal range of motion, supple. LUNGS: Breath sounds good bilaterally with a few scattered expiratory wheezes bilaterally. HEART: Regular rate and rhythm without murmurs. ABDOMEN: Soft, nontender. No guarding or rebound. No masses. BACK: No tenderness throughout entire back. EXTREMITIES: Normal range of motion without pain. Only trace pitting edema bilaterally of the pretibial area. Negative Homans bilaterally. NEUROLOGICAL: Normal speech, normal gait. Normal sensory, motor, and reflex exams. Awake, alert, and oriented x3. Cranial nerves normal. PSYCH: Normal mood, normal affect. SKIN: Warm, dry, no rashes. Course - Re-evaluation Re-evalutation: 10/16/18 12:01 Staff was unable to obtain blood on the first stick of the patient and the patient refused to allow any other blood work to be done. I got her chest x-ray looked at it and there is nothing acute present. Patient does not wish to have any further lab work done. She just wishes to be discharged home. She is stable at this time in my opinion. I have known this patient for a dozen or more years. I have explained to her that without doing blood work we will not be able to tell if she has an abnormality over her electrolytes or her heart or infections, etc. Patient understands and still wishes to be discharged home. He has no complaints at this time. - Vital Signs Vital signs: Temp Pulse Resp BP Pulse Ox 97.9 F 99 22 H 129/76 H 95 10/16/18 12:09 10/16/18 10:30 10/16/18 12:01 10/16/18 12:01 10/16/18 12:01 - Diagnostic Test Radiology results interpreted by me: 10/16/18 12:04 Patient's chest x-ray shows stable mild cardiomegaly. No evidence of congestive heart failure or fluid accumulation in the lungs. - EKG Interpretation by Me Rate: Tachycardia - 103 Rhythm: A.Fib, PVC's Discharge - Discharge Clinical Impression: Shortness of breath, Atrial fibrillation Condition: Stable Disposition: AGAINST MEDICAL ADVICE Additional Instructions: SHORTNESS OF BREATH OR DYSPNEA: You were evaluated for shortness of breath, or dyspnea. Dyspnea has many causes, and some are more serious than others. Sometimes it's impossible to diagnose the cause of dyspnea with the tests that are available on an emergency basis. Based on our evaluation today, you do not need hospitalization now. We found no evidence of pneumonia, collapsed lung, blood clots in the lung, tumors, or heart failure. Causes of non-specific dyspnea can include asthma or bronchospasm, hyperventilation, emotional distress, heart disease, emphysema, fibrosis of the lung, and stiffness of the chest wall. In healthy individuals with a single episode, it's sometimes reasonable to do nothing but wait to see if the problem occurs again. Additional tests used to evaluate dyspnea can include cardiac stress testing, echocardiography, pulmonary function testing, CAT scan of the chest, bronchoscopy or pulmonary biopsy. Return if shortness of breath persists or worsens, or if you develop chest pain, fever, cough, confusion, or fainting. Atrial Fibrillation Atrial fibrillation is an abnormal heart rhythm, caused by irregular electrical circuits in the upper heart chamber. It can be caused by heart valve disease, hardening of the arteries, or metabolic problems such as thyroid disease, or may occur without a clear cause. Atrial fibrillation may occur only occasionally, or may be chronic. Atrial fibrillation often results in a very fast heart rate, with palpitations, lightheadedness, and shortness of breath. Treatment is to slow the abnormally fast rate, and to convert the rhythm back to normal, if possible. Many patients stay in atrial fibrillation for years without symptoms or complications. Your doctor will decide whether you can be converted back to a normal heart rhythm. Contact the doctor or emergency medical system at once if you develop chest pain, shortness of breath, or severe lightheadedness, or if you develop any di sturbance of consciousness, problems with speech, or localized weakness. Except for the atrial fibrillation, at this time, you have NORMAL EXAM AND WORKUP: At this time, your examination and workup show no significant abnormality. No significant abnormal physical findings were noted. All laboratory, EKG, and imaging (x-ray, CT scans, ultrasound) studies that were ordered show no significant abnormality. Although your examination and all studies that were ordered showed no significant abnormal finding, there are no examinations and no studies that are 100% accurate. There is always the possibility that some abnormality could exist and not be detected with physical examination or within the limits and capabilities of laboratory and other studies. You should return or follow up as you were instructed on your visit today for further evaluation if your symptoms do not resolve. Our evaluation of your shortness of breath today was limited by the fact that we were not able to get blood specimens and you did not wish to proceed with having any further blood drawn. At any time if you wish to have further evaluation and testing, return and we will proceed with your work-up. You understand that without doing these tests, we might not cone picker a condition that could be serious or even fatal to you. In spite of that, you are still leaving AGAINST MEDICAL ADVICE (AMA). FOLLOW-UP CARE: If you have been referred to a physician for follow-up care, call the physicians office for an appointment as you were instructed or within the next two days. If you experience worsening or a significant change in your symptoms, notify the physician immediately or return to the Emergency Department at any time for re-evaluation. Prescriptions: Albuterol Sulfate [Proventil 0.5% Neb 2.5 mg/0.5 ml Vial.neb] 2.5 mg NEB QID #25 vial.neb Nebulizer [Nebulizer Machine] 1 each [facility] ASDIR PRN #1 kit PRN Reason:
--- NOTE | 2018-10-16 11:47 | RADIOLOGY REPORT (SQ) ---
EXAM DESCRIPTION: CHEST 2 VIEWS COMPLETED DATE/TIME: 10/16/2018 11:35 am REASON FOR STUDY: Shortness of breath COMPARISON: 07/23/2018 EXAM PARAMETERS: NUMBER OF VIEWS: two views TECHNIQUE: Digital Frontal and Lateral radiographic views of the chest acquired. RADIATION DOSE: NA LIMITATIONS: Limited lateral view secondary to patient motion. FINDINGS: LUNGS AND PLEURA: No opacities, masses or pneumothorax. No pleural effusion. MEDIASTINUM AND HILAR STRUCTURES: No masses or contour abnormalities. HEART AND VASCULAR STRUCTURES: Borderline enlarged, stable. Tortuous atherosclerotic thoracic aorta. BONES: No acute findings. HARDWARE: None in the chest. OTHER: No other significant finding. IMPRESSION: Stable enlarged cardiac silhouette without evidence of acute cardiopulmonary process. TECHNICAL DOCUMENTATION: JOB ID: [id number]- All Rights Reserved Reading location - IP/workstation name: [email or web address]
[2018-10-16 12:05] VITALS: BP 129/76
--- NOTE | 2018-10-16 14:39 | EKG REPORT ---
SEVERITY:- ABNORMAL ECG - ATRIAL FIBRILLATION VENTRICULAR PREMATURE COMPLEX MARKEDLY POSTERIOR QRS AXIS : Confirmed by: Jeff Machado MD 16-Oct-2018 14:38:59
== END 2018-10-16 12:23 | disposition left against medical advice (07) ==
LOC: ER 10:24
DX: R06.02 Shortness of breath (principal); I48.91 Unspecified atrial fibrillation; I50.9 Heart failure, unspecified; I11.0 Hypertensive heart disease with heart failure; J45.909 Unspecified asthma, uncomplicated
CPT/HCPCS: 93005; 94640; 99285; 71046; 93010; A9270; J7620

== ENCOUNTER 2018-10-28 07:35 | Emergency (ER) | payer MEDICARE, MEDICAID ==
[2018-10-28] MEDS ORDERED: ALBUTEROL SULFATE 0.083% NEB 2.5 MG/3 ML AMPUL NEB ONE (07:43)
[2018-10-28] MEDS ORDERED: ACETAMINOPHEN 325 MG TABLET PO ONE (07:44)
--- NOTE | 2018-10-28 07:51 | ER Document Report ---
ED General - General Chief Complaint: Chest Pain Stated Complaint: CHEST PAIN Time Seen by Provider: 10/28/18 07:43 TRAVEL OUTSIDE OF THE [place] IN LAST 30 DAYS: No - HPI Notes: Patient is a 78-year-old female that presents to the emergency department for chief complaint of chest pain and shortness of breath. Patient states she began having chest pain this morning. She describes it as a sharp sensation that is substernal and nonradiating. The pain improved after taking 2 aspirin and receiving DuoNeb by EMS on the way to the hospital. She reports history of heart attack and heart failure in the past. She also reports COPD but does not have any current breathing treatments. She is feeling better now. She denied any associated shortness of diaphoresis nausea or vomiting. She does have shortness of breath which has been progressively getting worse over the last 1 to 2 days. She states that about a week ago she had a cold with cough congestion and fevers which has since resolved. Patient states she just wants to feel better and does not wish for us to obtain any blood work or place an IV. She states "you will not get near me with a needle". Past Medical History: Hypertension, hyperlipidemia, [place], CHF, A. fib Past Surgical History: Reviewed in chart Social History: Denies drugs alcohol and tobacco Family History: Reviewed and noncontributory for presenting illness Allergies: Reviewed, see documented allergy list. REVIEW OF SYSTEMS: CONSTITUTIONAL : No fever No chills No diaphoresis recent illness EENT: No vision changes No congestion No sore throat CARDIOVASCULAR: chest pain No palpitations RESPIRATORY: shortness of breath No cough difficulty breathing GASTROINTESTINAL: No abdominal pain No nausea No vomiting No diarrhea GENITOURINARY: No dysuria No hematuria No difficulty urinating MUSCULOSKELETAL: No back pain No leg pain No arm pain SKIN: No rashes No lesions LYMPHATIC: No swollen, enlarged glands. NEUROLOGICAL: No lightheadedness No headache No weakness No paresthesias PSYCHIATRIC: No anxiety No depression PHYSICAL EXAMINATION: Vital signs reviewed, nursing noted reviewed. GENERAL: Well-appearing, obese, and in no acute distress. HEAD: Atraumatic, normocephalic. EYES: Eyes appear normal, extraocular movements intact, sclera anicteric, conjunctiva are normal. ENT: nares patent, oropharynx clear without exudates. Moist mucous membranes. NECK: Normal range of motion, supple without lymphadenopathy LUNGS: Breath sounds mild expiratory wheezing. Mild tachypnea. No accessory muscle use or distress HEART: Regular rate and rhythm without murmurs ABDOMEN: Soft, nontender, normoactive bowel sounds. No rebound, guarding, or rigidity. No masses appreciated. EXTREMITIES: Nontender, good range of motion, +2 bilateral pitting edema NEUROLOGICAL: No focal neurological deficits. Moves all extremities spontaneously Motor and sensory grossly intact on exam. PSYCH: Normal mood, normal affect. SKIN: Warm, Dry, normal turgor, no rashes or lesions noted on exposed skin - Related Data Allergies/Adverse Reactions: oxytetracycline [From Terramycin] Allergy (Severe, Verified 10/16/18 10:26) Throat swells oxytetracycline HCl [From Terramycin] Allergy (Severe, Verified 10/16/18 10:26) Throat swells Penicillins Allergy (Severe, Verified 10/16/18 10:26) Swelling sulfamethoxazole [From Septra] Allergy (Severe, Verified 10/16/18 10:26) Headaches trimethoprim [From Septra] Allergy (Severe, Verified 10/16/18 10:26) Headaches acetaminophen [From Tylenol] Allergy (Unknown, Verified 10/16/18 10:26) nitroglycerin Allergy (Verified 10/16/18 10:26) mycins Allergy (Severe, Uncoded 10/16/18 10:26) Hives PPD Allergy (Severe, Uncoded 10/16/18 10:26) Cardiac arrest Past Medical History - Social History Smoking Status: Never Smoker Family History: Reviewed & Not Pertinent - Past Medical History Cardiac Medical History: Reports: Hx Atrial Fibrillation, Hx Congestive Heart Failure, Hx Heart Attack - Age 26, Hx Hypercholesterolemia, Hx Hypertension Pulmonary Medical History: Reports: Hx Asthma, Hx Pneumonia - yrs ago Denies: Hx COPD Neurological Medical History: Reports: Hx Cerebrovascular Accident - Age 26 (Mini) Renal/ Medical History: Reports: Hx Kidney Stones. Denies: Hx Peritoneal Dialysis GI Medical History: Reports: Hx Diverticulitis Musculoskeletal Medical History: Reports Hx Arthritis - Legs & Back Past Surgical History: Reports: Hx Abdominal Surgery - exploratory, Hx Appendectomy, Hx Section, Hx Cholecystectomy, Hx Hysterectomy, Hx Tonsillectomy, Hx Tubal Ligation, Other - Several exploratory surgeries of the abdomen. - Immunizations Immunizations up to date: Yes Hx Diphtheria, Pertussis, Tetanus Vaccination: Yes Hx Pneumococcal Vaccination: 03/04/17 Physical Exam - Vital signs Vitals: Temp Pulse Resp BP Pulse Ox 97.7 F 87 17 108/69 94 10/28/18 07:47 10/28/18 07:47 10/28/18 07:47 10/28/18 07:47 10/28/18 07:47 Course - Re-evaluation Re-evalutation: 10/28/18 07:49 Vitals reviewed. Nursing notes reviewed. Patient's EKG shows atrial fibrillation with no STEMI. Patient was placed on monitoring manager. She does feel better after receiving aspirin and DuoNeb by EMS. Patient is adamant that we are to get nowhere near her with a needle including blood draw and IV access. Patient has capacity to make medical decisions. She understands without blood work I am not able to fully assess her for underlying cardiac pathology. Patient states her son contracted AIDS from an IV which is why she does not want the IV. I did at length explained that she cannot contract AIDS from a sterile IV however she is still refusing blood draw. I did have a code conversation with her and she does wish to be full code. She understands that if she arrests IV access will have to be placed. I did also explained that she may be having a heart attack given her presenting symptoms of chest pain and shortness of breath and without blood work it is difficult to diagnose completely. She understands that a heart attack may be missed and is still refusing blood drawn. 10/28/18 08:46 Patient's chest x-ray is stable with no acute findings. Her repeat EKG is unchanged from initial with no developing ST elevation. Patient is still adamant that she will not have any blood work drawn. She would like to sign out AGAINST MEDICAL ADVICE. She will be referred to cardiology for follow-up of her complaint of chest pain and shortness of breath. She was told to return at any point time for further management. Her urinalysis is also unremarkable. Laboratory 10/28/18 07:55 Urine Color STRAW Urine Appearance CLEAR Urine pH 7.0 Ur Specific [place] 1.006 Urine Protein NEGATIVE Urine Glucose (UA) NEGATIVE Urine Ketones NEGATIVE Urine Blood NEGATIVE Urine Nitrite NEGATIVE Urine Bilirubin NEGATIVE Urine Urobilinogen NEGATIVE Ur Leukocyte Esterase NEGATIVE U Hyaline Cast (Auto) 1 Squamous Epi Cells Auto 1 Urine Mucus (Auto) RARE Urine Ascorbic Acid NEGATIVE Chest X-Ray 10/28/18 07:43 IMPRESSION: Stable mild cardiomegaly with prominent central pulmonary arteries - Vital Signs Vital signs: Temp Pulse Resp BP Pulse Ox 97.7 F 87 17 108/69 94 10/28/18 07:47 10/28/18 07:47 10/28/18 07:47 10/28/18 07:47 10/28/18 07:47 - EKG Interpretation by Me Additional EKG results interpreted by me: 10/28/18 07:46 Interpreted by myself 0742: Atrial fibrillation, rate 86, normal axis, no STEMI 10/28/18 08:47 Interpreted by myself 0836: Atrial fibrillation, rate 81, normal axis, no significant change from initial Discharge - Discharge Clinical Impression: COPD exacerbation Chest pain Qualifiers: Chest pain type: unspecified Qualified Code(s): R07.9 - Chest pain, unspecified Condition: Stable Disposition: AGAINST MEDICAL ADVICE Additional Instructions: Please return to the emergency department if you have any worsening, or concern of your symptoms. Please return to the emergency department if you develop chest pain, difficulty breathing, severe abdominal pain, or ongoing vomiting. Please follow-up with your primary care physician in 2-3 days and any other recommended physicians. If prescribed, take all medications as directed. If you have any questions or concerns do not hesitate to return the emergency department for evaluation. By leaving the hospital today AGAINST MEDICAL ADVICE and refusing any blood work we cannot fully diagnose and evaluate your complaints of chest pain and shortness of breath. This may result in loss of life, limb or permanent disability from undiagnosed issues. Please return to the emergency room at any point in time for further management. Prescriptions: Albuterol Sulfate [Proair HFA Inhalation Aerosol 8.5 gm MDI] 2 puff IH Q4H PRN #1 mdi PRN Reason: Referrals: GIACOMO ESTRELLA MD [ACTIVE STAFF] - Follow up in 3-5 days
[2018-10-28 08:12] LABS: APPEARANCE,URINE CLEAR; BILIRUBIN,URINE NEGATIVE (NEGATIVE); COLOR,URINE STRAW; GLUCOSE, URINE NEGATIVE (NEGATIVE); KETONES,URINE NEGATIVE (NEGATIVE); LEUKOCYTE ESTERASE,URINE NEGATIVE (NEGATIVE); NITRITE,URINE NEGATIVE (NEGATIVE); PROTEIN,URINE NEGATIVE (NEGATIVE); URINE SPECIFIC GRAVITY 1.006; UROBILINOGEN,URINE NEGATIVE mg/dL (<2.0)
[2018-10-28] MEDS ORDERED: ASPIRIN 325 MG TABLET PO ONE (08:15)
--- NOTE | 2018-10-28 08:22 | RADIOLOGY REPORT (SQ) ---
EXAM DESCRIPTION: CHEST SINGLE VIEW COMPLETED DATE/TIME: 10/28/2018 8:01 am REASON FOR STUDY: chest pain COMPARISON: Chest films 08/04/2016 film 07/21/2018, 10/06/2017 CT angio chest 07/21/2018 EXAM PARAMETERS: NUMBER OF VIEWS: One view. TECHNIQUE: Single frontal radiographic view of the chest acquired. RADIATION DOSE: NA LIMITATIONS: None. FINDINGS: LUNGS AND PLEURA: No opacities, masses or pneumothorax. No pleural effusion. MEDIASTINUM AND HILAR STRUCTURES: No masses. Contour normal. HEART AND VASCULAR STRUCTURES: Mild cardiomegaly with prominent central pulmonary arteries BONES: No acute findings. HARDWARE: None in the chest. OTHER: No other significant finding. IMPRESSION: Stable mild cardiomegaly with prominent central pulmonary arteries TECHNICAL DOCUMENTATION: JOB ID: [id number] [employer]- All Rights Reserved Reading location - IP/workstation name: [email or web address]
[2018-10-28 09:19] VITALS: BP 115/82
--- NOTE | 2018-10-28 14:08 | EKG REPORT ---
SEVERITY:- ABNORMAL ECG - ATRIAL FIBRILLATION RBBB AND LPFB PROBABLE INFERIOR INFARCT, OLD : Confirmed by: Alis Adam MD 28-Oct-2018 14:07:35
--- NOTE | 2018-10-28 14:08 | EKG REPORT ---
SEVERITY:- ABNORMAL ECG - ATRIAL FIBRILLATION RIGHT AXIS DEVIATION PROBABLE INFERIOR INFARCT, OLD : Confirmed by: Alis Adam MD 28-Oct-2018 14:07:32
== END 2018-10-28 09:17 | disposition left against medical advice (07) ==
LOC: ER 07:35
DX: J44.1 Chronic obstructive pulmonary disease with (acute) exacerbation (principal); I48.91 Unspecified atrial fibrillation; I11.9 Hypertensive heart disease without heart failure; R07.2 Precordial pain; I25.2 Old myocardial infarction; Z88.1 Allergy status to other antibiotic agents; Z88.0 Allergy status to penicillin; Z88.6 Allergy status to analgesic agent; Z88.8 Allergy status to other drugs, medicaments and biological substances; Z88.7 Allergy status to serum and vaccine; Z87.01 Personal history of pneumonia (recurrent); Z53.29 Procedure and treatment not carried out because of patient's decision for other reasons
CPT/HCPCS: 93005; 99285; 81001; 71045; 93010; A9270 ×3

== ENCOUNTER 2018-12-05 03:07 | Emergency (ER) | payer MEDICARE, MEDICAID ==
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
--- NOTE | 2018-12-05 04:39 | RADIOLOGY REPORT (SQ) ---
EXAM DESCRIPTION: XR CHEST 1 VIEW COMPLETED DATE/TME: 12/05/2018 03:45 CLINICAL HISTORY: 78 years Female, dyspnea COMPARISON:Oct 28 2018 NUMBER OF VIEWS/TECHNIQUE: 1/AP FINDINGS: Small patchy opacity of the lingula. Adequate lung volume, normal cardiac silhouette, and intact bony thorax. IMPRESSION: Small lingular pneumonia. Recommend CR/CT surveillance including at 7-12 weeks following initiation of any clinically warranted therapy.
[2018-12-05 05:19] VITALS: BP 123/81
--- NOTE | 2018-12-05 18:41 | EKG REPORT ---
SEVERITY:- ABNORMAL ECG - ATRIAL FIBRILLATION, V-RATE 74-103 MULTIPLE VENTRICULAR PREMATURE COMPLEXES MARKEDLY POSTERIOR QRS AXIS : Confirmed by: Brennan Palma 05-Dec-2018 18:40:28
== END 2018-12-05 05:19 | disposition home or self-care (01) ==
LOC: ER 03:07
DX: I48.2 Chronic atrial fibrillation (principal); R06.02 Shortness of breath; I50.9 Heart failure, unspecified; E78.00 Pure hypercholesterolemia, unspecified; I11.0 Hypertensive heart disease with heart failure; Z86.73 Personal history of transient ischemic attack (TIA), and cerebral infarction without residual deficits; I25.2 Old myocardial infarction; Z87.442 Personal history of urinary calculi; Z90.49 Acquired absence of other specified parts of digestive tract; Z90.710 Acquired absence of both cervix and uterus; Z88.0 Allergy status to penicillin; Z88.3 Allergy status to other anti-infective agents; Z88.6 Allergy status to analgesic agent
CPT/HCPCS: 71045; 93005; 93010; 99285

== ENCOUNTER 2019-02-23 09:30 | Emergency (ER) | payer MEDICARE, MEDICAID ==
--- NOTE | 2019-02-23 10:06 | RADIOLOGY REPORT (SQ) ---
EXAM DESCRIPTION: CHEST SINGLE VIEW COMPLETED DATE/TIME: 02/23/2019 9:52 am REASON FOR STUDY: bed 19 db COMPARISON: Two-view chest 01/03/2019, 12/05/2018, 10/28/2018 CT angio chest 07/21/2018 EXAM PARAMETERS: NUMBER OF VIEWS: One view. TECHNIQUE: Single frontal radiographic view of the chest acquired. RADIATION DOSE: NA LIMITATIONS: Portable film, obese patient FINDINGS: LUNGS AND PLEURA: No opacities, masses or pneumothorax. No pleural effusion. MEDIASTINUM AND HILAR STRUCTURES: No masses. Contour normal. HEART AND VASCULAR STRUCTURES: Stable mild cardiomegaly BONES: No acute findings. HARDWARE: None in the chest. OTHER: No other significant finding. IMPRESSION: Mild cardiomegaly. No acute findings TECHNICAL DOCUMENTATION: JOB ID: [id number] [employer]- All Rights Reserved Reading location - IP/workstation name: [email or web address]
[2019-02-23] MEDS ORDERED: PREDNISONE 20 MG TABLET PO ONE (10:38)
[2019-02-23] MEDS ORDERED: OXYCODONE-ACETAMINOPHEN 5-325 MG TABLET PO ONE (10:40)
--- NOTE | 2019-02-23 10:53 | ER Document Report ---
ED Respiratory Problem - General Chief Complaint: Shortness Of Breath Stated Complaint: DIFFICULTY BREATHING Time Seen by Provider: 02/23/19 10:23 Primary Care Provider: RAHUL HARRISON MD [Primary Care Provider] - Follow up as needed Notes: Patient says she is having difficulty breathiing for a long time, monthss. Has home Nebs, but not oxygen. [place] like she was choking yesterday. History COPD, from second hand smoke, never smoked herself. Has a dry cough, no congestion. No fevers. No vomiting or diarrhea. Also, hurt her back getting out of a carthree days ago. Pain across the lumbar back bilaterally. No neuro deficits TRAVEL OUTSIDE OF THE [place] IN LAST 30 DAYS: No - Related Data Allergies/Adverse Reactions: oxytetracycline [From Terramycin] Allergy (Severe, Verified 02/23/19 10:22) Throat swells oxytetracycline HCl [From Terramycin] Allergy (Severe, Verified 02/23/19 10:22) Throat swells Penicillins Allergy (Severe, Verified 02/23/19 10:22) Swelling sulfamethoxazole [From Septra] Allergy (Severe, Verified 02/23/19 10:22) Headaches trimethoprim [From Septra] Allergy (Severe, Verified 02/23/19 10:22) Headaches acetaminophen [From Tylenol] Allergy (Unknown, Verified 02/23/19 10:22) nitroglycerin Allergy (Verified 02/23/19 10:22) mycins Allergy (Severe, Uncoded 02/23/19 10:22) Hives PPD Allergy (Severe, Uncoded 02/23/19 10:22) Cardiac arrest Past Medical History - Social History Smoking Status: Never Smoker Chew tobacco use (# tins/day): No Frequency of alcohol use: None Drug Abuse: None Family History: Reviewed & Not Pertinent Patient has suicidal ideation: No Patient has homicidal ideation: No - Past Medical History Cardiac Medical History: Reports: Hx Atrial Fibrillation, Hx Congestive Heart Failure, Hx Heart Attack - Age 26, Hx Hypercholesterolemia, Hx Hypertension Pulmonary Medical History: Reports: Hx Asthma, Hx COPD, Hx Pneumonia - yrs ago Neurological Medical History: Reports: Hx Cerebrovascular Accident - Age 26 (Mini) Renal/ Medical History: Reports: Hx Kidney Stones GI Medical History: Reports: Hx Diverticulitis Musculoskeletal Medical History: Reports Hx Arthritis - Legs & Back Past Surgical History: Reports: Hx Abdominal Surgery - exploratory, Hx Appendectomy, Hx Section, Hx Cholecystectomy, Hx Hysterectomy, Hx Tonsillectomy, Hx Tubal Ligation, Other - Several exploratory surgeries of the abdomen. - Immunizations Immunizations up to date: Yes Hx Diphtheria, Pertussis, Tetanus Vaccination: Yes Hx Pneumococcal Vaccination: 03/04/17 Review of Systems - Review of Systems Notes: CONSTITUTIONAL : Denies fever. CARDIOVASCULAR: Denies chest pain. RESPIRATORY: Denies cough, chest congestion, or shortness of breath. GASTROINTESTINAL: Denies abdominal pain or nausea, vomiting, or diarrhea. GENITOURINARY: Denies difficulty or painful urinating, urinary frequency, blood in urine BACK: see HPI. Physical Exam - Vital signs Vitals: Temp Resp Pulse Ox 97.8 F 31 H 93 02/23/19 09:36 02/23/19 09:36 02/23/19 09:36 Interpretation: Normal Notes: PHYSICAL EXAMINATION: GENERAL: Well-appearing, no acute distress. HEAD: Atraumatic, normocephalic. NECK: Normal range of motion, supple. LUNGS: Breath sounds clear and equal bilaterally. HEART: Irregular rate and rhythm without murmurs heard. ABDOMEN: Soft, nontender. No guarding or rebound or masses felt. BACK: mild paralumbar muscle tenderness. Extremities negative Nagi's bilat NEURO: grossly normal sensory,motor, and reflexes. Course - Vital Signs Vital signs: Temp Pulse Resp BP Pulse Ox 97.8 F 27 H 142/94 H 95 02/23/19 09:36 02/23/19 11:08 02/23/19 11:08 02/23/19 11:08 - Diagnostic Test Radiology results interpreted by me: 02/23/19 10:58 Chest x-ray shows mild cardiac enlargement but no other significant findings. - EKG Interpretation by Ct Rate: Normal Rhythm: A.Fib [place]/QRS: RBBB Discharge - Discharge Clinical Impression: COPD exacerbation, Strain of lumbar paraspinous muscle Condition: Stable Disposition: HOME, SELF-CARE Additional Instructions: SHORTNESS OF BREATH OR DYSPNEA: You were evaluated for shortness of breath, or dyspnea. Dyspnea has many causes, and some are more serious than others. Sometimes it's impossible to diagnose the cause of dyspnea with the tests that are available on an emergency basis. Based on our evaluation today, you do not need hospitalization now. We found no evidence of pneumonia, collapsed lung, blood clots in the lung, tumors, or heart failure. Causes of non-specific dyspnea can include asthma or bronchospasm, hyperventilation, emotional distress, heart disease, emphysema, fibrosis of the lung, and stiffness of the chest wall. In healthy individuals with a single episode, it's sometimes reasonable to do nothing but wait to see if the problem occurs again. Additional tests used to evaluate dyspnea can include cardiac stress testing, echocardiography, pulmonary function testing, CAT scan of the chest, bronchoscopy or pulmonary biopsy. Return if shortness of breath persists or worsens, or if you develop chest pain, fever, cough, confusion, or fainting. NORMAL EXAM AND WORKUP: At this time, your examination and workup show no significant abnormality. No significant abnormal physical findings were noted. All laboratory, EKG, and imaging (x-ray, CT scans, ultrasound) studies that were ordered show no significant abnormality. Although your examination and all studies that were ordered showed no significant abnormal finding, there are no examinations and no studies that are 100% accurate. There is always the possibility that some abnormality could exist and not be detected with physical examination or within the limits and capabilities of laboratory and other studies. You should return or follow up as you were instructed on your visit today for further evaluation if your symptoms do not resolve. Chronic Obstructive Lung Disease You have chronic obstructive lung disease (COPD). The symptoms come from emphysema (damage to small airways, with trapping of air in large sacks in the lung) and chronic bronchitis (repeated infection and damage to larger airways). The cause is almost always cigarette smoking, although dust exposure, asthma, and infections contribute. You should avoid fumes, dust, and smoke (especially tobacco smoke). Your condition will flare from time to time. There is no cure, but the symptoms can be treated. Bronchodilators (asthma medicine) are often helpful. Antibiotics help when infection is present. When shortness of breath is severe, we may prescribe cortisone medication. If medicine doesn't help enough, we can arrange for you to have an oxygen tank at home. Notify your doctor at once if sputum becomes thick, foul, or bloody, if you develop a fever or chest pain, or if your shortness of breath worsens. STEROID MEDICATION: You have been given an injection of or oral medicine of the cortisone/steroid class. This medication is used to control inflammation or allergy. Omari t is usually only given for a short period of time, until the acute process subsides. There are usually no side effects from short-term use of cortisone-like medications. Some persons feel an increased sense of well-being and are not sleepy at bedtime. Long-term use of cortisone medications is best avoided, unless required for a severe condition. If your condition does not remit, or relapses after the course of corticosteroid medication, you should consult your physician. INHALED BRONCHODILATORS: You have received treatment(s) of and/or prescription for an inhaled bronchodilator -- a medication which stimulates the airways in the lung to dilate. This improves the flow of air in asthma, bronchitis, and emphysema. These medicines have some similarity to adrenaline, and can cause similar side effects: shakiness, racing heart, and a sense of nervousness. These side effects decrease with time. Contact your doctor if these side effects are severe. Do not over-use the medicine. Too-frequent use of the inhaler may make it ineffective. Call your doctor if the inhaler is not controlling your symptoms at the prescribed doses. LOW BACK PAIN: Three out of every four people will have an episode of disabling back pain during their lifetime. Most commonly the pain is due to straining of the muscles and ligaments in the low back. Usual treatment includes: (1) Rest on a firm surface. Avoid lying on your stomach. (2) Ice pack the painful area. After a few days, gentle heat may be used intermittently to relax the area, or ice packs can be continued. (3) Medication may be needed -- muscle relaxers and antiinflammatory medicines are commonly used. (4) As the back improves, exercises are prescribed to strengthen the back and abdominal muscles. Your doctor will advise you on the proper care for your back at each stage in your recovery. You may be better in a few days -- or healing may take several weeks. If new symptoms of a "herniated disc" (radiation of pain, numbness, or tingling down the back of the leg or weakness in the leg) occur, you should be re-examined. Further testing may be necessary. ORAL NARCOTIC MEDICATION: You have been given a prescription for pain control. This medication is a narcotic. It's best taken with food, as nausea can result if taken on an empty stomach. Don't operate machinery or drive within six hours of taking this medication. Do not combine this medicine with alcohol, or with any medication which can cause sedation (such as cold tablets or sleeping pills) unless you get permission from the physician. Narcotics tend to cause constipation. If possible, drink plenty of fluids and eat a diet high in fiber and fruits. FOLLOW-UP CARE: If you have been referred to a physician for follow-up care, call the physicians office for an appointment as you were instructed or within the next two days. If you experience worsening or a significant change in your symptoms, notify the physician immediately or return to the Emergency Department at any time for re-evaluation. Take your own prednisone pills which are 5 mg each. Start with 10 tablets on Sunday and then 8 tablets on Sunday, 6 tablets on Sunday, 4 tablets on , and 2 tablets on Sunday. Use your home nebulizer as often as you feel necessary. Return anytime for reevaluation if you have worsening symptoms. Prescriptions: Oxycodone HCl/Acetaminophen [Percocet 5-325 mg Tablet] 1 tab PO Q4H PRN #15 tablet PRN Reason: Referrals: RAHUL HARRISON MD [Primary Care Provider] - Follow up as needed
[2019-02-23 10:54] LABS: APPEARANCE,URINE CLEAR; BILIRUBIN,URINE NEGATIVE (NEGATIVE); COLOR,URINE YELLOW; GLUCOSE, URINE NEGATIVE (NEGATIVE); KETONES,URINE NEGATIVE (NEGATIVE); LEUKOCYTE ESTERASE,URINE NEGATIVE (NEGATIVE); NITRITE,URINE NEGATIVE (NEGATIVE); PROTEIN,URINE NEGATIVE (NEGATIVE); URINE SPECIFIC GRAVITY 1.011; UROBILINOGEN,URINE NEGATIVE mg/dL (<2.0)
[2019-02-23 11:35] VITALS: BP 142/94
--- NOTE | 2019-02-23 17:47 | EKG REPORT ---
SEVERITY:- ABNORMAL ECG - ATRIAL FIBRILLATION, V-RATE 82-114 RBBB AND LPFB PVC : Confirmed by: Jeff Machado MD 23-Feb-2019 17:46:53
== END 2019-02-23 11:20 | disposition home or self-care (01) ==
LOC: ER 09:30
DX: J44.1 Chronic obstructive pulmonary disease with (acute) exacerbation (principal); S39.012A Strain of muscle, fascia and tendon of lower back, initial encounter; X58.XXXA Exposure to other specified factors, initial encounter; I11.9 Hypertensive heart disease without heart failure; I48.91 Unspecified atrial fibrillation; I45.10 Unspecified right bundle-branch block; Z87.01 Personal history of pneumonia (recurrent); Z88.1 Allergy status to other antibiotic agents; Z88.0 Allergy status to penicillin; Z88.8 Allergy status to other drugs, medicaments and biological substances; Z88.7 Allergy status to serum and vaccine
CPT/HCPCS: 93005; 99285; 81001; 71045; 93010; A9270 ×2; J7512

== ENCOUNTER 2019-03-15 11:27 | Emergency (ER) | payer MEDICARE, MEDICAID ==
[2019-03-15] MEDS ORDERED: OXYCODONE HCL IR 5 MG TABLET PO ONE (11:54)
--- NOTE | 2019-03-15 12:00 | ER Document Report ---
ED Cardiac - General Chief Complaint: Chest Pain Stated Complaint: CHEST PAIN Time Seen by Provider: 03/15/19 11:52 Primary Care Provider: RAHUL HARRISON MD [Primary Care Provider] - Follow up as needed Notes: Patient says she is having left-sided chest pains since she fell this morning and hit her left chest on the floor. She said she fell because her legs just "gave out on me". She says this is happened to her more more frequently of late. Denies any other symptoms or complaints. Not short of breath at this time. Does have a history of CHF. Also has a history of atrial fibrillation. Patient does not want to have any lab work done. We have done an EKG and a chest x-ray and they show no acute findings. This is the same presentation of the patient had a couple weeks ago when I saw her at that time, as well. I am very familiar with this patient as she and her former who is now used to come to the emergency room quite frequently over the years. Asked the patient what further she would like for us to do. I told her I cannot make any judgments or recommendations or arrange for hospitalization or anything without further testing, such as blood, etc. Patient does not wish to have those tests done. She said that she would leave and go home. I agreed to give her a dozen Percocets to take as needed for pain. Patient was very well informed that not going further and testing with some blood tests, etc., could cause her to not be diagnosed properly for her chest pain and could result in serious outcomes such as even . Patient understands and does not wish to have any further testing done and is leaving against our advice. TRAVEL OUTSIDE OF THE [place] IN LAST 30 DAYS: No - Related Data Allergies/Adverse Reactions: oxytetracycline [From Terramycin] Allergy (Severe, Verified 02/23/19 10:22) Throat swells oxytetracycline HCl [From Terramycin] Allergy (Severe, Verified 02/23/19 10:22) Throat swells Penicillins Allergy (Severe, Verified 02/23/19 10:22) Swelling sulfamethoxazole [From Septra] Allergy (Severe, Verified 02/23/19 10:22) Headaches trimethoprim [From Septra] Allergy (Severe, Verified 02/23/19 10:22) Headaches acetaminophen [From Tylenol] Allergy (Unknown, Verified 02/23/19 10:22) nitroglycerin Allergy (Verified 02/23/19 10:22) mycins Allergy (Severe, Uncoded 02/23/19 10:22) Hives PPD Allergy (Severe, Uncoded 02/23/19 10:22) Cardiac arrest Past Medical History - Social History Smoking Status: Never Smoker Family History: Reviewed & Not Pertinent - Past Medical History Cardiac Medical History: Reports: Hx Atrial Fibrillation, Hx Congestive Heart Failure, Hx Heart Attack - Age 26, Hx Hypercholesterolemia, Hx Hypertension Pulmonary Medical History: Reports: Hx Asthma, Hx COPD, Hx Pneumonia - yrs ago Neurological Medical History: Reports: Hx Cerebrovascular Accident - Age 26 (Mini) Renal/ Medical History: Reports: Hx Kidney Stones. Denies: Hx Peritoneal Dialysis GI Medical History: Reports: Hx Diverticulitis Musculoskeletal Medical History: Reports Hx Arthritis - Legs & Back Past Surgical History: Reports: Hx Abdominal Surgery - exploratory, Hx Appendectomy, Hx Section, Hx Cholecystectomy, Hx Hysterectomy, Hx Tonsillectomy, Hx Tubal Ligation, Other - Several exploratory surgeries of the abdomen. - Immunizations Immunizations up to date: Yes Hx Diphtheria, Pertussis, Tetanus Vaccination: Yes Hx Pneumococcal Vaccination: 03/04/17 Physical Exam - Vital signs Vitals: Pulse Ox 97 03/15/19 11:29 Course - Vital Signs Vital signs: Temp Pulse Resp BP Pulse Ox 97.7 F 21 H 117/75 78 L 03/15/19 11:55 03/15/19 11:43 03/15/19 11:59 03/15/19 12:02 - Diagnostic Test Radiology results interpreted by me: 03/15/19 19:07 Patient's chest x-ray shows cardiomegaly but no evidence of heart failure. - EKG Interpretation by Me Rate: Normal Rhythm: A.Fib Additional EKG results interpreted by me: 03/15/19 19:[address] changes on the twelve-lead EKG. No STEMI. Discharge - Discharge Clinical Impression: Non-cardiac chest pain, Contusion of chest, Atrial fibrillation Condition: Stable Disposition: AGAINST MEDICAL ADVICE Additional Instructions: CHEST PAIN OF UNCLEAR CAUSE: The exact cause of your chest pain isn't clear. Fortunately, there is no evidence of a dangerous medical condition. Further testing may be required to find the source of the pain. Most often, we find that this pain is coming from the chest wall -- the muscles or rib joints in the chest. But chest pain can come from the lung and lung lining, the esophagus, the heart valves or heart lining, and even the stomach or gallbladder. Rest. Eat lightly until the pain is gone. We may prescribe medicine for pain and inflammation. You should call the physician immediately if the pain radiates to the shoulder, jaw or arms; if you start to run a fever or develop a cough; or if you develop shortness of breath, or other new or alarming symptoms. CHEST WALL PAIN: Your chest pain may be coming from the chest wall. This is often caused by straining the muscles or joints in the chest during physical activity, direct trauma, coughing, or vigorous vomiting. Persons with arthritis are especially prone to this type of pain, due to inflammation of the cartilage joints near the breast bone. Occasionally, no cause can be found. Rest from strenuous physical activity. This kind of chest pain is usually made worse by movement of the chest. Depending on the symptoms, we may prescribe medicine for pain, muscle relaxation, and antiinflammatory effects. If the pain is new, and seems to be due to muscle strain, cold packs can help. Otherwise, apply gentle warmth to the painful area for 15 minutes every hour or two. You should call contact the doctor immediately if things change. Further evaluation is needed if you develop a fever or cough, if the nature of the pain changes, or if you become short of breath. ORAL NARCOTIC MEDICATION: You have been given a prescription for pain control. This medication is a narcotic. It's best taken with food, as nausea can result if taken on an empty stomach. Don't operate machinery or drive within six hours of taking this medication. Do not combine this medicine with alcohol, or with any medication which can cause sedation (such as cold tablets or sleeping pills) unless you get permission from the physician. Narcotics tend to cause constipation. If possible, drink plenty of fluids and eat a diet high in fiber and fruits. Please be aware that prescription narcotics also have the potential for abuse. People become addicted to these medications because of the general sense of wellbeing that they induce. This feeling along with a significant reduction in tension, anxiety, and aggression provides a stimulating seductive quality to these drugs. Once your pain is under control, we encourage you to discard your unused narcotics. FOLLOW-UP CARE: If you have been referred to a physician for follow-up care, call the physicians office for an appointment as you were instructed or within the next two days. If you experience worsening or a significant change in your symptoms, notify the physician immediately or return to the Emergency Department at any time for re-evaluation. At this time, you are declining any further evaluation than your EKG and chest x-ray. There are no acute findings on either of these studies. If you have worsening or new symptoms, return for us to reevaluate your condition. If you decide that you want to have further studies done at any time, return for us to reevaluate your condition. Prescriptions: Oxycodone HCl 5 mg PO Q4HP PRN #10 capsule PRN Reason: Referrals: RAHUL HARRISON MD [Primary Care Provider] - Follow up as needed
[2019-03-15 12:01] VITALS: BP 117/75
--- NOTE | 2019-03-15 12:13 | RADIOLOGY REPORT (SQ) ---
EXAM DESCRIPTION: CHEST SINGLE VIEW COMPLETED DATE/TIME: 03/15/2019 11:55 am REASON FOR STUDY: chest pain COMPARISON: 02/23/2019 NUMBER OF VIEWS: One view. TECHNIQUE: Single frontal radiographic view of the chest acquired. LIMITATIONS: None. FINDINGS: LUNGS AND PLEURA: No opacities, masses or pneumothorax. No pleural effusion. MEDIASTINUM AND HILAR STRUCTURES: No masses. Contour normal. HEART AND VASCULAR STRUCTURES: Heart enlarged without failure. Normal vasculature. BONES: No acute findings. HARDWARE: None in the chest. OTHER: No other significant finding. IMPRESSION: HEART ENLARGED WITHOUT FAILURE. NO OTHER SIGNIFICANT RADIOGRAPHIC FINDING IN THE CHEST. TECHNICAL DOCUMENTATION: JOB ID: [id number] [employer]- All Rights Reserved Reading location - IP/workstation name: [email or web address]
--- NOTE | 2019-03-15 17:12 | EKG REPORT ---
SEVERITY:- ABNORMAL ECG - ATRIAL FIBRILLATION RIGHT AXIS DEVIATION,LPFB : Confirmed by: Jeff Machado MD 15-Mar-2019 17:11:38
== END 2019-03-15 12:08 | disposition left against medical advice (07) ==
LOC: ER 11:27
DX: S20.212A Contusion of left front wall of thorax, initial encounter (principal); R07.89 Other chest pain; W18.30XA Fall on same level, unspecified, initial encounter; I48.91 Unspecified atrial fibrillation; I11.0 Hypertensive heart disease with heart failure; I50.9 Heart failure, unspecified; E78.00 Pure hypercholesterolemia, unspecified; I25.2 Old myocardial infarction; Z86.73 Personal history of transient ischemic attack (TIA), and cerebral infarction without residual deficits; Z88.0 Allergy status to penicillin; Z90.49 Acquired absence of other specified parts of digestive tract; Z90.710 Acquired absence of both cervix and uterus
CPT/HCPCS: 93005; 99285; 71045; 93010; A9270

== ENCOUNTER 2019-05-14 15:40 | Emergency (ER) | payer MEDICARE, MEDICAID ==
--- NOTE | 2019-05-14 17:27 | RADIOLOGY REPORT (SQ) ---
EXAM DESCRIPTION: CHEST 2 VIEWS COMPLETED DATE/TIME: 05/14/2019 5:18 pm REASON FOR STUDY: chest discomfort/choking sensation COMPARISON: CTA chest 07/21/2018 Chest films 01/03/2019, 03/15/2019 EXAM PARAMETERS: NUMBER OF VIEWS: two views TECHNIQUE: Digital Frontal and Lateral radiographic views of the chest acquired. RADIATION DOSE: NA LIMITATIONS: none FINDINGS: LUNGS AND PLEURA: No opacities, masses or pneumothorax. No pleural effusion. MEDIASTINUM AND HILAR STRUCTURES: No masses or contour abnormalities. HEART AND VASCULAR STRUCTURES: Mild cardiomegaly, stable BONES: No acute findings. HARDWARE: None in the chest. OTHER: No other significant finding. IMPRESSION: NO ACUTE RADIOGRAPHIC FINDING IN THE CHEST. TECHNICAL DOCUMENTATION: JOB ID: [id number] [employer]- All Rights Reserved Reading location - IP/workstation name: [email or web address]
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
--- NOTE | 2019-05-14 21:22 | RADIOLOGY REPORT (SQ) ---
CT BRAIN, CERVICAL SPINE, AND FACIAL BONES EXAM DATE: 05/14/2019 8:17 PM [employer]UCATION TE[employer]ER HISTORY: Trauma. COMPARISON: None. TECHNIQUE: CT scan of the brain, cervical spine, and facial bones without IV contrast. This exam was performed according to our departmental dose-optimization program, which includes automated exposure control, adjustment of the mA and/or kV according to patient size and/or use of iterative reconstruction technique. FINDINGS: BRAIN: There are scattered areas of hypoattenuation within the periventricular white matter, which likely represent chronic microvascular ischemia. No evidence of acute infarction, intracranial hemorrhage, extra-axial fluid collection, or midline shift. No depressed skull fracture. CERVICAL SPINE: No acute cervical fracture or prevertebral soft tissue swelling is seen. There is straightening of the normal cervical lordosis, which may be due to cervical collar, muscle spasm, or patient positioning. The facet joints and disc spaces are preserved. No advanced canal stenosis is identified. FACIAL BONES: No acute facial bone fracture is seen. No air-fluid levels are seen in the paranasal sinuses. The mastoid air cells are clear. No retrobulbar mass or hematoma is identified. IMPRESSION: 1. No acute intracranial hemorrhage. 2. No acute fracture or subluxation of the cervical spine. 3. No acute maxillofacial fracture.
[2019-05-14] MEDS ORDERED: IBUPROFEN 600 MG TABLET PO ONE (22:18)
[2019-05-14 23:06] VITALS: BP 113/60
== END 2019-05-14 23:30 | disposition home or self-care (01) ==
LOC: ER 15:40
DX: S09.90XA Unspecified injury of head, initial encounter (principal); S49.90XA Unspecified injury of shoulder and upper arm, unspecified arm, initial encounter; R07.9 Chest pain, unspecified; Y04.2XXA Assault by strike against or bumped into by another person, initial encounter; I48.91 Unspecified atrial fibrillation; I50.9 Heart failure, unspecified; E78.00 Pure hypercholesterolemia, unspecified; I11.0 Hypertensive heart disease with heart failure; Z87.442 Personal history of urinary calculi; Z90.49 Acquired absence of other specified parts of digestive tract; Z90.710 Acquired absence of both cervix and uterus; I25.2 Old myocardial infarction
CPT/HCPCS: 99284; 71046; 70450; 70486; 72125; A9270

== ENCOUNTER 2019-06-07 01:01 | Emergency (ER) | payer MEDICARE, MEDICAID ==
--- NOTE | 2019-06-07 02:08 | RADIOLOGY REPORT (SQ) ---
Chest single view on 06/07/2019 at 1:28 AM CLINICAL INDICATION: Shortness of breath COMPARISON: 05/14/2019 FINDINGS: Mild cardiomegaly is noted. There is mild linear atelectasis or scarring in the left lower lung. The lungs are otherwise clear. Mild vascular calcification is noted in the aorta. Hilar and mediastinal contours are within normal limits. Pulmonary vascularity is within normal limits. IMPRESSION: No acute disease.
[2019-06-07] MEDS ORDERED: METHYLPREDNISOLONE INJ 125 MG/2 ML SDV IV ONE (02:36)
[2019-06-07] MEDS ORDERED: IPRATROPIUM/ALBUTEROL 0.5-2.5 MG/3 ML AMPUL NEB ONE (02:36)
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
[2019-06-07 04:11] LABS: ABSOLUTE BASOPHILS # (AUTO) 0.1 10^3/uL (0.0-0.2); ABSOLUTE EOSINOPHILS # (AUTO) 0.3 10^3/uL (0.0-0.6); ABSOLUTE LYMPHOCYTES (AUTO) 1.6 10^3/uL (0.5-4.7); ABSOLUTE NEUT (AUTO) 7.2 10^3/uL (1.7-8.2); BASOPHILS % (AUTO) 1.3 % (0-2); HEMATOCRIT 44.2 % (36.0-47.0); HEMOGLOBIN 14.5 g/dL (12.0-15.5); LYMPHOCYTES % (AUTO) 15.7 % (13-45); MEAN CORPUSCULAR HEMOGLOBIN 27.8 pg (27.0-33.4); MEAN CORPUSCULAR HGB CONC 32.8 g/dL (32.0-36.0); MEAN CORPUSCULAR VOLUME 85 fl (80-97); MONOCYTES % (AUTO) 9.8 % (3-13); PLATELET COUNT 322 10^3/uL (150-450); RED BLOOD COUNT 5.21 10^6/uL (3.72-5.28); RED CELL DISTRIBUTION WIDTH 15.4 % (11.5-14.0); SEGMENTED NEUTROPHILS % (AUTO) 70.2 % (42-78); TOTAL CELLS COUNTED % (AUTO) 100 %; WHITE BLOOD COUNT 10.2 10^3/uL (4.0-10.5)
[2019-06-07 04:29] LABS: ALKALINE PHOSPHATASE 77 U/L (38-126); ANION GAP 10 (5-19); ASPARTATE AMINO TRANSFERASE 23 U/L (14-36); BILIRUBIN,DIRECT 0.2 mg/dL (0.0-0.4); BILIRUBIN,TOTAL 0.5 mg/dL (0.2-1.3); BLOOD UREA NITROGEN 19 mg/dL (7-20); CALCIUM 9.3 mg/dL (8.4-10.2); CARBON DIOXIDE 25 mmol/L (22-30); CHLORIDE 104 mmol/L (98-107); GLUCOSE 96 mg/dL (75-110); POTASSIUM 4.5 mmol/L (3.6-5.0); TOTAL PROTEIN 7.4 g/dL (6.3-8.2)
[2019-06-07 04:38] LABS: NT PRO BNP 836 pg/mL (<450)
[2019-06-07 04:39] LABS: TROPONIN I < 0.012 ng/mL
[2019-06-07 06:37] VITALS: BP 130/63
--- NOTE | 2019-06-07 08:49 | EKG REPORT ---
SEVERITY:- ABNORMAL ECG - ATRIAL FIBRILLATION, V-RATE 69-97 LAD, CONSIDER LEFT ANTERIOR FASCICULAR BLOCK CONSIDER ANTERIOR INFARCT : Confirmed by: Jeff Machado MD 07-Jun-2019 08:48:53
== END 2019-06-07 06:33 | disposition home or self-care (01) ==
LOC: ER 01:01
DX: J44.1 Chronic obstructive pulmonary disease with (acute) exacerbation (principal); R06.02 Shortness of breath; R05 Cough; R07.9 Chest pain, unspecified; R11.0 Nausea; Z87.891 Personal history of nicotine dependence; I48.20 Chronic atrial fibrillation, unspecified; I50.9 Heart failure, unspecified; I11.0 Hypertensive heart disease with heart failure; I25.2 Old myocardial infarction
CPT/HCPCS: 93005; 94640; 99285; 96374; 36415; 85025; 80053; 84484; 85379; 83880; 71045; 93010; J2930; A9270; J7620

== ENCOUNTER 2019-07-07 03:26 | Emergency (ER) | payer MEDICARE, MEDICAID ==
[2019-07-07] MEDS ORDERED: IPRATROPIUM/ALBUTEROL 0.5-2.5 MG/3 ML AMPUL NEB ONE (03:56)
--- NOTE | 2019-07-07 04:38 | ER Document Report ---
Entered by SADE WALLACE SCRIBE 07/07/19 0402 Acting as scribe for:NOBLE BOWEN IV, MD ED Respiratory Problem - General Chief Complaint: Shortness Of Breath Stated Complaint: TROUBLE BREATHING Time Seen by Provider: 07/07/19 03:52 Primary Care Provider: RAHUL HARRISON MD [Primary Care Provider] - Follow up as needed Mode of Arrival: Medic Information source: Patient Notes: This 78 year old female patient brought in by EMS from home presents to the ED today with complaints of difficulty breathing that began prior to arrival this morning. Patient states that she "couldn't hardly breathe" and that the breathing treatments at home provide little to no relief. Patient received A&A x2 en route to ED. Patient reports a cough and vomiting x3, but denies diarrhea, fever, body aches, or chills. Patient notes that she does not want an IV or blood work done, but agrees to a breathing treatment, CXR, and EKG. TRAVEL OUTSIDE OF THE [place] IN LAST 30 DAYS: No - Related Data Allergies/Adverse Reactions: oxytetracycline [From Terramycin] Allergy (Severe, Verified 07/07/19 03:41) Throat swells oxytetracycline HCl [From Terramycin] Allergy (Severe, Verified 07/07/19 03:41) Throat swells Penicillins Allergy (Severe, Verified 07/07/19 03:41) Swelling sulfamethoxazole [From Septra] Allergy (Severe, Verified 07/07/19 03:41) Headaches trimethoprim [From Septra] Allergy (Severe, Verified 07/07/19 03:41) Headaches acetaminophen [From Tylenol] Allergy (Unknown, Verified 07/07/19 03:41) nitroglycerin Allergy (Verified 07/07/19 03:41) mycins Allergy (Severe, Uncoded 07/07/19 03:41) Hives PPD Allergy (Severe, Uncoded 07/07/19 03:41) Cardiac arrest Past Medical History - General Information source: Patient, [facility] Records - Social History Smoking Status: Never Smoker Cigarette use (# per day): No Chew tobacco use (# tins/day): No Smoking Education Provided: No Family History: Reviewed & Not Pertinent Patient has suicidal ideation: No Patient has homicidal ideation: No - Past Medical History Cardiac Medical History: Reports: Hx Atrial Fibrillation, Hx Congestive Heart Failure, Hx Heart Attack - Age 26, Hx Hypercholesterolemia, Hx Hypertension Pulmonary Medical History: Reports: Hx Asthma, Hx Bronchitis, Hx COPD, Hx Pneumonia - yrs ago Neurological Medical History: Reports: Hx Cerebrovascular Accident - Age 26 (Mini) Renal/ Medical History: Reports: Hx Kidney Stones GI Medical History: Reports: Hx Diverticulitis Musculoskeletal Medical History: Reports Hx Arthritis - Legs & Back Past Surgical History: Reports: Hx Abdominal Surgery - Several exploratory surgeries, Hx Appendectomy, Hx Section, Hx Cholecystectomy, Hx Hysterectomy, Hx Tonsillectomy, Hx Tubal Ligation - Immunizations Immunizations up to date: Yes Hx Diphtheria, Pertussis, Tetanus Vaccination: Yes Hx Pneumococcal Vaccination: 03/04/17 Review of Systems - Review of Systems Constitutional: See HPI. denies: Chills, Fever EENT: No symptoms reported Cardiovascular: See HPI, Dyspnea Respiratory: See HPI, Cough Gastrointestinal: See HPI, Vomiting. denies: Diarrhea Genitourinary: No symptoms reported Female Genitourinary: No symptoms reported Musculoskeletal: See HPI. denies: Other - Body aches Skin: No symptoms reported Hematologic/Lymphatic: No symptoms reported Neurological/Psychological: No symptoms reported -: Yes All other systems reviewed and negative Physical Exam - Vital signs Vitals: Temp Resp BP Pulse Ox 98.1 F 21 H 134/73 H 96 07/07/19 03:33 07/07/19 03:33 07/07/19 03:33 07/07/19 03:33 - General General appearance: Alert - HEENT Head: Normocephalic, Atraumatic Eyes: Normal Pupils: PERRL - Respiratory Respiratory status: Respiratory distress - on NC Chest status: Nontender Breath sounds: Wheezing - Expiratory Chest palpation: Normal - Cardiovascular Rhythm: Irregularly irregular Heart sounds: Normal auscultation Murmur: No - Abdominal Inspection: Normal Distension: No distension Bowel sounds: Normal Tenderness: Nontender - Abdomen soft Organomegaly: No organomegaly - Back Back: Normal, Nontender - Extremities General upper extremity: Normal inspection General lower extremity: Normal inspection - Neurological Neuro grossly intact: Yes - Psychological Associated symptoms: Normal affect, Normal mood - Skin Skin Temperature: Warm Skin Moisture: Dry Skin Color: Normal Course - Re-evaluation Re-evalutation: 07/07/19 05:10 Results of ED MSE discussed with patient. MSE is limited because patient is refusing an IV and blood work. Based on the patient's presentation, symptoms seem consistent with a COPD exacerbation. - Vital Signs Vital signs: Temp Pulse Resp BP Pulse Ox 98.1 F 23 H 125/92 H 93 07/07/19 03:33 07/07/19 04:01 07/07/19 04:01 07/07/19 04:01 - EKG Interpretation by Me Additional EKG results interpreted by me: 07/07/19 05:11 EKG performed on 07/07/2019 at 0406 hrs. was interpreted by this MD. Findings: Irregular rhythm, rate 91, right axis deviation is present, QRS complexes appear narrow, ST segments are nonspecific. Discharge - Discharge Clinical Impression: COPD exacerbation Condition: Good Disposition: HOME, SELF-CARE Additional Instructions: Return to the Emergency Department without delay if any worse. HOME CARE INSTRUCTIONS & INFORMATION: Thank you for choosing us for your me dical needs. We hope you're satisfied with the care you received. After you leave, you must properly care for your problem and, at the same time, observe its progress. Any condition can change. Some illnesses can change rapidly over hours or days. If your condition worsens, return to the Emergency Department or see your physician promptly. ABOUT YOUR X-RAYS AND EKG'S: If you had an EKG or X-rays taken, they have been read by the Emergency Physician. The X-rays and EKG's will also be read by a Radiologist or Political Aide within 24 hours. If discrepancies are noted, you will be notified by telephone. Please be certain the ED has a correct telephone number & address where you can be reached. Also, realize that some fractures or abnormalities do not show up on initial X-rays. If your symptoms continue, see your physician. ABOUT YOUR LABORATORY TEST: If you had laboratory tests, the results have been reviewed by the Emergency Physician. Some test results (for example cultures) may not be available for several days. You will be contacted if any test result shows you need additional treatment. Please be certain the ED has a correct telephone number and address where you can be reached. ABOUT YOUR MEDICATIONS: You will receive instructions on how to take your medicine on the prescription label you receive. Additional information may be provided by the Pharmacy. If you have questions afterwards, call the ED for clarification or further instructions. Some prescribed medications may cause drowsiness. Do not perform tasks such as driving a car or operating machinery without consulting your Pharmacist. If you feel you need a refill of pain medication, your condition will need re-evaluation. Please do not call for a refill of any medication. ABOUT YOUR SIGNATURE: Signature of this document acknowledges to followin. Understanding that you received emergency treatment and that you may be released before al medical problems are known or treated. Please be certain the ED has a correct phone number & address where you can be reached. 2. Acknowledgement that you will arrange for follow-up care as recommended. 3. Authorization for the Emergency Physician to provide information to your follow-up Physician in order to maximize your care. AT ANY TIME, IF YOUR SYMPTOMS CHANGE SIGNIFICANTLY OR WORSEN OR YOU DEVELOP NEW SYMPTOMS, RETURN TO THE EMERGENCY DEPARTMENT IMMEDIATELY FOR RE-EVALUATION. OUR GOAL IS TO PROVIDE EXCELLENT MEDICAL CARE! WE HOPE THAT WE HAVE MET YOUR EXPECTATIONS DURING YOUR EMERGENCY DEPARTMENT VISIT AND THAT YOU FEEL YOU HAVE RECEIVED EXCELLENT CARE! Chronic Obstructive Lung Disease You have chronic obstructive lung disease (COPD). The symptoms come from emphysema (damage to small airways, with trapping of air in large sacks in the lung) and chronic bronchitis (repeated infection and damage to larger airways). The cause is almost always cigarette smoking, although dust exposure, asthma, and infections contribute. You should avoid fumes, dust, and smoke (especially tobacco smoke). Your condition will flare from time to time. There is no cure, but the symptoms can be treated. Bronchodilators (asthma medicine) are often helpful. Antibiotics help when infection is present. When shortness of breath is severe, we may prescribe cortisone medication. If medicine doesn't help enough, we can arrange for you to have an oxygen tank at home. Notify your doctor at once if sputum becomes thick, foul, or bloody, if you develop a fever or chest pain, or if your shortness of breath worsens. Prescriptions: Prednisone 10 mg PO DAILY 5 Days #15 tablet Referrals: RAHUL HARRISON MD [Primary Care Provider] - Follow up as needed I personally performed the services described in the documentation, reviewed and edited the documentation which was dictated to the scribe in my presence, and it accurately records my words and actions.
--- NOTE | 2019-07-07 04:48 | RADIOLOGY REPORT (SQ) ---
EXAM DESCRIPTION: XR CHEST 1 VIEW COMPLETED DATE/TME: 07/07/2019 03:46 CLINICAL HISTORY: 78 years, Female, difficulty breathing COMPARISON: 06/07/2019 NUMBER OF VIEWS: One TECHNIQUE: AP view of the chest LIMITATIONS: None. FINDINGS: The lungs are clear. The heart is mildly enlarged. There are dense calcifications of the mitral valve. There is no pneumothorax or pleural effusion. The bones are unremarkable. IMPRESSION: No acute cardiopulmonary abnormality. copyright 2010 [employer]- All Rights Reserved
[2019-07-07 05:32] VITALS: BP 136/92
--- NOTE | 2019-07-07 08:40 | EKG REPORT ---
SEVERITY:- ABNORMAL ECG - ATRIAL FIBRILLATION, V-RATE 63-115 RIGHT AXIS DEVIATION PROBABLE INFERIOR INFARCT, OLD CONSIDER ANTERIOR INFARCT : Confirmed by: Brennan Palma 07-Jul-2019 08:39:20
== END 2019-07-07 05:34 | disposition home or self-care (01) ==
LOC: ER 03:26
DX: J44.1 Chronic obstructive pulmonary disease with (acute) exacerbation (principal); R05 Cough; R11.10 Vomiting, unspecified; I49.9 Cardiac arrhythmia, unspecified; I10 Essential (primary) hypertension; Z87.01 Personal history of pneumonia (recurrent); Z88.1 Allergy status to other antibiotic agents; Z88.0 Allergy status to penicillin; Z88.8 Allergy status to other drugs, medicaments and biological substances; Z88.7 Allergy status to serum and vaccine
CPT/HCPCS: 93005; 94640; 99285; 71045; 93010; A9270; J7620

== ENCOUNTER → 2019-09-29 | Outpatient (CLI) | payer MEDICARE, MEDICAID ==
--- NOTE | 2019-09-29 11:13 | RADIOLOGY REPORT (SQ) ---
EXAM DESCRIPTION: VENOUS UNILATERAL LOWER IMAGES COMPLETED DATE/TIME: 09/29/2019 10:55 am REASON FOR STUDY: RLE PAIN M79.89 OTHER SPECIFIED SOFT TISSUE DISORDERS COMPARISON: None. TECHNIQUE: Dynamic and static silva scale and color images acquired of the right leg venous system. S elected spectral images acquired with additional compression and augmentation maneuvers. The contrala teral common femoral vein and saphenofemoral junction were also imaged. Images stored on PACS. LIMITATIONS: None. FINDINGS: COMMON FEMORAL: Normal phasicity, compression and augmentation. No visualized echogenic ma terial on silva scale. No defects on color images. FEMORAL: Normal compression and augmentation. No visualized echogenic material on silva scale. No defe cts on color images. POPLITEAL: Normal compression, augmentation. No visualized echogenic material on silva scale. No defec ts on color images. CALF VESSELS: Normal compression, augmentation. No visualized echogenic material on silva scale. No de fects on color images. GSV and SSV: Normal compression, augmentation. No visualized echogenic material on silva scale. No def ects on color images. ANY DEEP VENOUS INSUFFICIENCY: No. ANY EVIDENCE OF POPLITEAL CYST: Yes. OTHER: No other finding. CONTRALATERAL COMMON FEMORAL VEIN AND SAPHENOFEMORAL JUNCTION: Normal phasicity, compression and augmentation. No visualized echogenic material on silva scale. No de fects on color images. IMPRESSION: 1. NO EVIDENCE OF DVT OR SVT IN THE RIGHT LEG. 2. ALEGRIA'S CYST THAT MEASURES 2.2 X 1.1 X 2 CM. TECHNICAL DOCUMENTATION: JOB ID: [id number] 2010 [employer]- All Rights Reserved Reading location - IP/workstation name: [email or web address]
== END ==
LOC: SP 09:30
PROVIDERS: ATTEND Family Medicine
DX: M71.21 Synovial cyst of popliteal space [Baker], right knee (principal); M79.604 Pain in right leg; M79.89 Other specified soft tissue disorders
CPT/HCPCS: 93971

== ENCOUNTER 2019-10-06 21:51 | Emergency (ER) | payer MEDICARE, MEDICAID ==
--- NOTE | 2019-10-06 22:10 | ER Document Report ---
ED General - General Chief Complaint: Chest Pain Stated Complaint: CHEST DISCOMFORT Time Seen by Provider: 10/06/19 22:03 Notes: Patient is a 79-year-old female that comes by EMS for chief complaint of chest pain. She states that she turned over in bed and when she did she felt a sharp pain radiated across her chest on both sides. She states this lasted a couple of minutes and then resolved. She denies current chest pain. She denies any associated symptoms including shortness of breath, cough, dizziness, nausea, vomiting. She also states that she has had some intermittent upper abdominal pain. She states both the chest pain and the abdominal pain have been present and intermittent for months. Past medical history includes atrial fibrillation, "a soft heart attack when I was young", asthma/COPD, former tobacco use, cholecystectomy, appendectomy. She states she has never had CABG, cardiac stents, and she follows with marketing content specialist Dr. Machado. TRAVEL OUTSIDE OF THE [place] IN LAST 30 DAYS: No - Related Data Allergies/Adverse Reactions: oxytetracycline [From Terramycin] Allergy (Severe, Verified 07/07/19 03:41) Throat swells oxytetracycline HCl [From Terramycin] Allergy (Severe, Verified 07/07/19 03:41) Throat swells Penicillins Allergy (Severe, Verified 07/07/19 03:41) Swelling sulfamethoxazole [From Septra] Allergy (Severe, Verified 07/07/19 03:41) Headaches trimethoprim [From Septra] Allergy (Severe, Verified 07/07/19 03:41) Headaches acetaminophen [From Tylenol] Allergy (Unknown, Verified 07/07/19 03:41) nitroglycerin Allergy (Verified 07/07/19 03:41) mycins Allergy (Severe, Uncoded 07/07/19 03:41) Hives PPD Allergy (Severe, Uncoded 07/07/19 03:41) Cardiac arrest Past Medical History - General Information source: Patient - Social History Smoking Status: Former Smoker Lives with: Family Family History: Reviewed & Not Pertinent - Past Medical History Cardiac Medical History: Reports: Hx Atrial Fibrillation, Hx Congestive Heart Failure, Hx Heart Attack - Age 26, Hx Hypercholesterolemia, Hx Hypertension Pulmonary Medical History: Reports: Hx Asthma, Hx Bronchitis, Hx COPD, Hx Pneumonia - yrs ago Neurological Medical History: Reports: Hx Cerebrovascular Accident - Age 26 (Mini) Renal/ Medical History: Reports: Hx Kidney Stones. Denies: Hx Peritoneal Dial ysis GI Medical History: Reports: Hx Diverticulitis Musculoskeletal Medical History: Reports Hx Arthritis - Legs & Back Past Surgical History: Reports: Hx Abdominal Surgery - exploratory, Hx Appendectomy, Hx Section, Hx Cholecystectomy, Hx Hysterectomy, Hx Tonsillectomy, Hx Tubal Ligation, Other - Several exploratory surgeries of the abdomen. - Immunizations Immunizations up to date: Yes Hx Diphtheria, Pertussis, Tetanus Vaccination: Yes Hx Pneumococcal Vaccination: 03/04/17 Review of Systems - Review of Systems Constitutional: No symptoms reported EENT: No symptoms reported Cardiovascular: See HPI Respiratory: No symptoms reported Gastrointestinal: See HPI Genitourinary: No symptoms reported Female Genitourinary: No symptoms reported Musculoskeletal: No symptoms reported Skin: No symptoms reported Hematologic/Lymphatic: No symptoms reported Neurological/Psychological: No symptoms reported Physical Exam - Vital signs Vitals: Temp Pulse Ox 98.6 F 95 10/06/19 22:00 10/06/19 22:00 - Notes Notes: GENERAL: Alert, interacts well. No acute distress. HEAD: Normocephalic, atraumatic. EYES: Pupils equal, round, and reactive to light. Extraocular movements intact. ENT: Oral mucosa moist, tongue midline. Oropharynx unremarkable. Airway patent. NECK: Full range of motion. Supple. Trachea midline. No lymphadenopathy. LUNGS: Clear to auscultation bilaterally, no wheezes, rales, or rhonchi. No respiratory distress. Non-tender chest wall. HEART: Irregularly irregular, no tachycardia, no murmur ABDOMEN: Soft, non-tender. Non-distended. EXTREMITIES: Moves all 4 extremities spontaneously. No edema, normal radial and dorsalis pedis pulses bilaterally. No cyanosis. Patient complains with palpation behind the right knee but range of motion is intact, knee exam and lower extremity exam unremarkable otherwise. BACK: no cervical, thoracic, lumbar midline tenderness. No saddle anesthesia, normal distal neurovascular exam. Moves all extremities in full range of motion. NEUROLOGICAL: Alert and oriented x3. Normal speech. Cranial nerves II through XII grossly intact. Strength 5/5 in all extremities. PSYCH: Normal affect, normal mood. SKIN: Warm, dry, normal turgor. No rashes or lesions noted. Course - Re-evaluation Re-evalutation: Patient is talkative, well-appearing, has no current complaints. However patient did present to the emergency department for chest pain, does have reported cardiac history and risk factors, does have advanced age. We began work-up, however patient did agree to chest x-ray and EKG but adamantly refused an IV, or any blood draws. I explained to the patient that I could not correctly evaluate her abdominal pain and chest pain without lab work, she states she understands this but she still refuses. When I asked further why she refused that she states she is just tired of it. I explained that I might be missing a life-threatening abnormality and her refusing this could be too severe or even deadly outcomes, she states she understands this and she still refuses. She states she would rather sign out AGAINST MEDICAL ADVICE and get blood drawn. She still wants the chest x-ray and EKG however. I told patient I would discuss this with her again after these test is been performed. She states agreement. Chest x-ray unremarkable, EKG without significant change from prior. I discussed with patient again. Again I recommended that we draw blood and evaluate her for her chest pain and abdominal pain. Patient again declines. She states that she just wants to have a test for the back of her right knee to make sure there is no clot, she refuses any other interventions or testing. Patient only has pain in the posterior aspect of the right knee, she can amb ulate, she has full range of motion, no erythema or swelling. Unfortunately we do not have Doppler testing available at this time of night, I did explain this to patient, patient will instead be written for this to be performed outpatient. Patient states she is ready to leave. She states she would like to sign out AGAINST MEDICAL ADVICE because she does not want any additional testing. Again I stressed the concerns of this, patient refused. Patient speaks clearly, is completely oriented, appears to have the mental capacity to make this decision. Patient urged to follow-up immediately or return immediately for additional evaluation. Patient does state understanding. Patient discharged AGAINST MEDICAL ADVICE. - Vital Signs Vital signs: Temp Pulse Resp BP Pulse Ox 97.9 F 90 19 123/88 H 98 10/07/19 00:22 10/07/19 00:22 10/07/19 00:22 10/07/19 00:22 10/07/19 00:22 - EKG Interpretation by Me Additional EKG results interpreted by me: EKG shows atrial fibrillation at a rate of 91, right bundle branch block, Q waves inferiorly. No T wave inversions or ST segment changes in consecutive leads. Inferior Q waves were present previously. Discharge - Discharge Clinical Impression: Chest pain of uncertain etiology, Upper abdominal pain, Right leg pain Disposition: AGAINST MEDICAL ADVICE Additional Instructions: You have not allowed us to complete the work-up to examine your symptoms. It is possible that you have an underlying condition that is dangerous and could cause you harm or even . You are signing out AGAINST MEDICAL ADVICE. I recommend that you follow-up immediately or return to the emergency department for additional evaluation and work-up of your symptoms. In addition to this you have been provided with an order for a venous Doppler ultrasound of your right leg to be performed, do this in addition to your follow-up or return. Forms: Follow-Up Outpatient Testing
--- NOTE | 2019-10-06 23:08 | RADIOLOGY REPORT (SQ) ---
XR CHEST 1 VIEW EXAM DATE: 10/06/2019 10:12 PM CDT HISTORY: chest pain. COMPARISON: 07/07/2019 FINDINGS: The heart size is mildly enlarged. There is no pulmonary vascular congestion. No consolidation, pleural effusion, or pneumothorax is seen. There is mild atelectasis at the left lung base. No acute bony findings. IMPRESSION: No evidence of acute cardiopulmonary disease.
[2019-10-06] MEDS ORDERED: OXYCODONE HCL IR 5 MG TABLET PO ONE (23:34)
[2019-10-07 00:24] VITALS: BP 123/88
--- NOTE | 2019-10-07 08:05 | EKG REPORT ---
SEVERITY:- ABNORMAL ECG - ATRIAL FIBRILLATION, V-RATE 66-113 RBBB AND LPFB INFERIOR INFARCT, AGE INDETERMINATE : Confirmed by: Jeff Machado MD 07-Oct-2019 08:04:18
== END 2019-10-07 00:24 | disposition left against medical advice (07) ==
LOC: ER 21:51
DX: R07.9 Chest pain, unspecified (principal); R10.10 Upper abdominal pain, unspecified; M79.604 Pain in right leg; J44.9 Chronic obstructive pulmonary disease, unspecified; I48.91 Unspecified atrial fibrillation; I50.9 Heart failure, unspecified; I11.0 Hypertensive heart disease with heart failure; E78.00 Pure hypercholesterolemia, unspecified; Z88.0 Allergy status to penicillin; Z88.3 Allergy status to other anti-infective agents; Z88.6 Allergy status to analgesic agent; Z86.73 Personal history of transient ischemic attack (TIA), and cerebral infarction without residual deficits; Z90.710 Acquired absence of both cervix and uterus; Z90.49 Acquired absence of other specified parts of digestive tract
CPT/HCPCS: 93005; 99285; 71045; 93010; A9270

== ENCOUNTER 2019-11-27 16:00 | Emergency (ER) | payer MEDICARE, MEDICAID ==
--- NOTE | 2019-11-27 17:26 | ER Document Report ---
Entered by JAMES SMITH SCRIBE 11/27/19 1882 Acting as scribe for:MANDEEP ROWLAND, DO ED Cardiac - General Chief Complaint: Chest Pain Stated Complaint: CHEST PAIN Time Seen by Provider: 11/27/19 16:46 Primary Care Provider: SKINNY YEPEZ MD [Primary Care Provider] - Follow up as needed Mode of Arrival: Medic Information source: Patient Notes: This 79 year old female patient presents to the emergency department today with complaints of chest pain prior to arrival. Patient is refusing to hvae blood work or really any work up today. She states she was at the [facility]'s office "handling some stuff" when she developed this chest pain. Patient states she juts wants to take a cab home. TRAVEL OUTSIDE OF THE [place] IN LAST 30 DAYS: No - Related Data Allergies/Adverse Reactions: oxytetracycline [From Terramycin] Allergy (Severe, Verified 11/27/19 16:48) Throat swells oxytetracycline HCl [From Terramycin] Allergy (Severe, Verified 11/27/19 16:48) Throat swells Penicillins Allergy (Severe, Verified 11/27/19 16:48) Swelling sulfamethoxazole [From Septra] Allergy (Severe, Verified 11/27/19 16:48) Headaches trimethoprim [From Septra] Allergy (Severe, Verified 11/27/19 16:48) Headaches acetaminophen [From Tylenol] Allergy (Unknown, Verified 11/27/19 16:48) nitroglycerin Allergy (Verified 11/27/19 16:48) mycins Allergy (Severe, Uncoded 11/27/19 16:48) Hives PPD Allergy (Severe, Uncoded 11/27/19 16:48) Cardiac arrest Past Medical History - General Information source: Patient - Social History Smoking Status: Unknown if Ever Smoked Cigarette use (# per day): No Frequency of alcohol use: None Drug Abuse: None Lives with: Alone Family History: Reviewed & Not Pertinent - Past Medical History Cardiac Medical History: Reports: Hx Atrial Fibrillation, Hx Congestive Heart Failure, Hx Heart Attack - Age 26, Hx Hypercholesterolemia, Hx Hypertension Pulmonary Medical History: Reports: Hx Asthma, Hx Bronchitis, Hx COPD, Hx Pneumonia - yrs ago Neurological Medical History: Reports: Hx Cerebrovascular Accident - Age 26 (Mini) Renal/ Medical History: Reports: Hx Kidney Stones. Denies: Hx Peritoneal Dialysis GI Medical History: Reports: Hx Diverticulitis Musculoskeletal Medical History: Reports Hx Arthritis - Legs & Back Past Surgical History: Reports: Hx Abdominal Surgery - exploratory, Hx Appendectomy, Hx Section, Hx Cholecystectomy, Hx Hysterectomy, Hx Tonsillectomy, Hx Tubal Ligation, Other - Several exploratory surgeries of the abdomen. - Immunizations Immunizations up to date: Yes Hx Diphtheria, Pertussis, Tetanus Vaccination: Yes Hx Pneumococcal Vaccination: 03/04/17 Review of Systems - Review of Systems Constitutional: No symptoms reported EENT: No symptoms reported Cardiovascular: See HPI, Chest pain Respiratory: No symptoms reported Gastrointestinal: No symptoms reported Genitourinary: No symptoms reported Female Genitourinary: No symptoms reported Musculoskeletal: No symptoms reported Skin: No symptoms reported Hematologic/Lymphatic: No symptoms reported Neurological/Psychological: No symptoms reported -: Yes All other systems reviewed and negative Physical Exam - Notes Notes: Physical Exam: General: Alert, appears well. HEENT: Normocephalic. Atraumatic. PERRL. Extraocular movements intact. Oropharynx clear. Neck: Supple. Non-tender. Respiratory: No respiratory distress. Clear and equal breath sounds bilaterally. Cardiovascular: Regular rate and rhythm. Abdominal: Normal Inspection. Non-tender. No distension. Normal Bowel Sounds. Back: No gross abnormalities. Extremities: Moves all four extremities. Upper extremities: Normal inspection. Normal ROM. Lower extremities: Normal inspection. No edema. Normal ROM. Neurological: Normal cognition. AAOx4. Normal speech. Psychological: Normal affect. Normal Mood. Skin: Warm. Dry. Normal color. Course - Re-evaluation Re-evalutation: 11/27/19 17:22 MDM Eccentric 79 year old was out doing personal business and had a post anesthesia room nurse call EMS. She was having chest pain then, but has none now. No fever or covid exposure. She feels she would get HIV from a blood draw and will not allow this. She knows where she is and is oriented. She has capacity to make decisions I believe. She clearly wishes to leave, and understands she risks g etting worse and may or become disabled. She still wants to leave. She knows she may return here for any reason and is leaving against advice. Discharge - Discharge Clinical Impression: Chest pain Qualifiers: Chest pain type: unspecified Qualified Code(s): R07.9 - Chest pain, unspecified Condition: Stable Disposition: AGAINST MEDICAL ADVICE Referrals: SKINNY YEPEZ MD [Primary Care Provider] - Follow up as needed I personally performed the services described in the documentation, reviewed and edited the documentation which was dictated to the scribe in my presence, and it accurately records my words and actions.
--- NOTE | 2019-11-28 19:37 | EKG REPORT ---
SEVERITY:- ABNORMAL ECG - ATRIAL FIBRILLATION, V-RATE 68-104 RBBB AND LPFB INFERIOR INFARCT, AGE INDETERMINATE : Confirmed by: Brennan Palma 28-Nov-2019 19:36:47
== END 2019-11-27 17:08 | disposition left against medical advice (07) ==
LOC: ER 16:00
DX: R07.9 Chest pain, unspecified (principal); Z88.1 Allergy status to other antibiotic agents; Z88.0 Allergy status to penicillin; Z88.2 Allergy status to sulfonamides; Z88.8 Allergy status to other drugs, medicaments and biological substances; I11.0 Hypertensive heart disease with heart failure; I50.9 Heart failure, unspecified; J44.9 Chronic obstructive pulmonary disease, unspecified; I25.2 Old myocardial infarction; I48.91 Unspecified atrial fibrillation
CPT/HCPCS: 93005; 93010; 99284

== ENCOUNTER → 2019-12-02 | Outpatient (CLI) | payer MEDICARE, MEDICAID ==
--- NOTE | 2019-12-02 12:47 | RADIOLOGY REPORT (SQ) ---
EXAM DESCRIPTION: CT RT LOWER EXTREMITY WITHOUT IMAGES COMPLETED DATE/TIME: 12/02/2019 9:53 am REASON FOR STUDY: R KNEE PAIN COMPARISON: None. TECHNIQUE: Axial imaging performed through the Right knee with reformatted coronal and sagittal imaging windowed for bone and soft tissues. Images saved to PAC S. 3D IMAGING: Were 3D images as MIP, SSD, or volume rendering performed at the work station? No LIMITATIONS: None. FINDINGS: SOFT TISSUES: No obvious swelling or foreign body. BONY STRUCTURES: Advanced osteoarthritis medial and patellofemoral compartment. Less severe osteoart hritis lateral compartment. Loose bodies. MINERALIZATION: Normal. OTHER: No other significant finding. IMPRESSION: Advanced osteoarthritis. Loose bodies. Reading location - IP/workstation name: [email or web address]
== END ==
LOC: RAD 09:31
PROVIDERS: ATTEND Orthopaedic Surgery
DX: M25.569 Pain in unspecified knee (principal); M17.11 Unilateral primary osteoarthritis, right knee; M23.41 Loose body in knee, right knee

== ENCOUNTER 2020-03-31 10:29 | Emergency (ER) | payer MEDICARE, MEDICAID ==
--- NOTE | 2020-03-31 11:52 | ER Document Report ---
ED Medical Screen (RME) - General Chief Complaint: Arm Pain Stated Complaint: RIGHT ARM PAIN Time Seen by Provider: 03/31/20 11:34 Primary Care Provider: SKINNY YEPEZ MD [Primary Care Provider] - Follow up as needed TRAVEL OUTSIDE OF THE [place] IN LAST 30 DAYS: No - HPI Notes: 03/31/20 11:51 79-year-old female with past medical history for congestive heart failure, hypertension, chronic right shoulder pain to the emergency department with complaints of right shoulder pain, right knee pain for the past several days as well as shortness of breath for the past several days. She states that her knee was hurting her 2 nights ago and when she rolled over in the bed she hurt her right shoulder. States about a year ago she had a repair in her rotator cuff. She states that that time she developed congestive heart failure. She states she supposed to have a knee replacement but cannot pass for clearance for knee replacement due to her congestive heart failure. Admits that she has been feeling progressively more short of breath for the past several days. She is breathy in triage. She has inspiratory rales bilaterally in the bases of the lungs. She has 1+ pitting edema to the legs. I performed a brief medical screening exam on the patient determined that the patient needs further evaluation and management by main side provider. I have placed initial orders to help expedite care. - Related Data Allergies/Adverse Reactions: oxytetracycline [From Terramycin] Allergy (Severe, Verified 03/31/20 11:31) Throat swells oxytetracycline HCl [From Terramycin] Allergy (Severe, Verified 03/31/20 11:31) Throat swells Penicillins Allergy (Severe, Verified 03/31/20 11:31) Swelling sulfamethoxazole [From Septra] Allergy (Severe, Verified 03/31/20 11:31) Headaches trimethoprim [From Septra] Allergy (Severe, Verified 03/31/20 11:31) Headaches acetaminophen [From Tylenol] Allergy (Unknown, Verified 03/31/20 11:31) nitroglycerin Allergy (Verified 03/31/20 11:31) mycins Allergy (Severe, Uncoded 03/31/20 11:31) Hives PPD Allergy (Severe, Uncoded 03/31/20 11:31) Cardiac arrest Past Medical History - Past Medical History Cardiac Medical History: Reports: Hx Atrial Fibrillation, Hx Congestive Heart Failure, Hx Heart Attack - Age 26, Hx Hypercholesterolemia, Hx Hypertension Pulmonary Medical History: Reports: Hx Asthma, Hx Bronchitis, Hx COPD, Hx Pneumonia - yrs ago Neurological Medical History: Reports: Hx Cerebrovascular Accident - Age 26 (Mini) Renal/ Medical History: Reports: Hx Kidney Stones. Denies: Hx Peritoneal Dialysis GI Medical History: Reports: Hx Diverticulitis Musculoskeltal Medical History: Reports Hx Arthritis - Legs & Back Past Surgical History: Reports: Hx Abdominal Surgery - exploratory, Hx Appendectomy, Hx Section, Hx Cholecystectomy, Hx Hysterectomy, Hx Tonsillectomy, Hx Tubal Ligation, Other - Several exploratory surgeries of the abdomen. - Immunizations Immunizations up to date: Yes Hx Diphtheria, Pertussis, Tetanus Vaccination: Yes Physical Exam - Vital signs Vitals: Temp Pulse Resp BP Pulse Ox 97.4 F 122 H 18 135/72 H 96 03/31/20 10:39 03/31/20 10:39 03/31/20 10:39 03/31/20 10:39 03/31/20 10:39 Course - Vital Signs Vital signs: Temp Pulse Resp BP Pulse Ox 97.4 F 114 H 18 135/72 H 97 03/31/20 10:39 03/31/20 11:41 03/31/20 10:39 03/31/20 10:39 03/31/20 11:41 Doctor's Discharge - Discharge Referrals: SKINNY YEPEZ MD [Primary Care Provider] - Follow up as needed
--- NOTE | 2020-03-31 12:46 | RADIOLOGY REPORT (SQ) ---
EXAM DESCRIPTION: SHOULDER RIGHT 2 OR MORE VIEWS IMAGES COMPLETED DATE/TIME: 03/31/2020 12:33 pm REASON FOR STUDY: shoulder pain COMPARISON: 09/20/2018 NUMBER OF VIEWS: Three views. TECHNIQUE: Internal rotation, external rotation, and Y view images acquired of the right shoulder. LIMITATIONS: None. FINDINGS: MINERALIZATION: Normal. BONES: No acute fracture. No worrisome bone lesions. JOINTS: Humeral head sits high in position which may be secondary to a chronic rotator cuff injury. There is joint space narrowing involving the AC joint with small osteophytes. VISUALIZED LUNGS AND RIBS: No pneumothorax. No rib fracture. SOFT TISSUES: No radiopaque foreign body. OTHER: No other significant finding. IMPRESSION: Degenerative changes. No acute fracture or dislocation. TECHNICAL DOCUMENTATION: JOB ID: [id number] 2010 [employer]- All Rights Reserved Reading location - IP/workstation name: [email or web address]
--- NOTE | 2020-03-31 12:47 | RADIOLOGY REPORT (SQ) ---
EXAM DESCRIPTION: CHEST 2 VIEWS IMAGES COMPLETED DATE/TIME: 03/31/2020 12:33 pm REASON FOR STUDY: SOB COMPARISON: 10/06/2019 EXAM PARAMETERS: NUMBER OF VIEWS: two views TECHNIQUE: Digital Frontal and Lateral radiographic views of the chest acquired. RADIATION DOSE: NA LIMITATIONS: none FINDINGS: LUNGS AND PLEURA: Interstitial markings are prominent but unchanged. No consolidation. N o pneumothorax or effusion. MEDIASTINUM AND HILAR STRUCTURES: No masses or contour abnormalities. HEART AND VASCULAR STRUCTURES: Heart normal size. No evidence for failure. BONES: No acute findings. HARDWARE: None in the chest. OTHER: No other significant finding. IMPRESSION: No interval change in the chest. No acute findings. TECHNICAL DOCUMENTATION: JOB ID: [id number] 2010 [employer]- All Rights Reserved Reading location - IP/workstation name: [email or web address]
--- NOTE | 2020-03-31 12:48 | RADIOLOGY REPORT (SQ) ---
EXAM DESCRIPTION: KNEE RIGHT 4 VIEWS IMAGES COMPLETED DATE/TIME: 03/31/2020 12:33 pm REASON FOR STUDY: knee pain COMPARISON: 04/14/2013 NUMBER OF VIEWS: Four views. TECHNIQUE: AP, lateral, and both oblique radiographic images acquired of the right knee. LIMITATIONS: None. FINDINGS: MINERALIZATION: Normal. BONES: No acute fracture or dislocation. No worrisome bone lesions. JOINT: Joint space narrowing in all compartments. No effusion. SOFT TISSUES: No soft tissue swelling. No radio-opaque foreign body. OTHER: No other significant finding. IMPRESSION: Tricompartmental osteoarthritis. There has been progression since prior exam. TECHNICAL DOCUMENTATION: JOB ID: [id number] 2010 [employer]- All Rights Reserved Reading location - IP/workstation name: [email or web address]
--- NOTE | 2020-03-31 12:52 | EKG REPORT ---
SEVERITY:- ABNORMAL ECG - ATRIAL FIBRILLATION, V-RATE 94-156 RBBB AND LPFB PROBABLE INFERIOR INFARCT, AGE INDETERMINATE : Confirmed by: Jeff Machado MD 31-Mar-2020 12:51:19
--- NOTE | 2020-03-31 13:15 | ER Document Report ---
ED General - General Chief Complaint: Knee Pain Stated Complaint: RIGHT ARM PAIN Time Seen by Provider: 03/31/20 11:34 Primary Care Provider: WHITNEY BEAUCHAMP MD [COMMUNITY BASED STAFF] - Follow up in 3-5 days SKINNY YEPEZ MD [Primary Care Provider] - Follow up as needed Notes: Patient presents with acute on chronic right shoulder pain right knee pain and back pain. She has a history of chronic pain and arthritis. She also has a history of COPD. She said that for the last few days she been having worsening pain after turning over in bed and twisting her right knee. She thinks her legs are slightly more swollen than usual. She was seen in triage and x-rays were ordered of the chest right shoulder and right knee. She was refusing blood draws at that point. Of note she lives at home alone cleans her house moves around using no assistive devices and is able to function independently. TRAVEL OUTSIDE OF THE [place] IN LAST 30 DAYS: No - Related Data Allergies/Adverse Reactions: oxytetracycline [From Terramycin] Allergy (Severe, Verified 03/31/20 11:31) Throat swells oxytetracycline HCl [From Terramycin] Allergy (Severe, Verified 03/31/20 11:31) Throat swells Penicillins Allergy (Severe, Verified 03/31/20 11:31) Swelling sulfamethoxazole [From Septra] Allergy (Severe, Verified 03/31/20 11:31) Headaches trimethoprim [From Septra] Allergy (Severe, Verified 03/31/20 11:31) Headaches acetaminophen [From Tylenol] Allergy (Unknown, Verified 03/31/20 11:31) nitroglycerin Allergy (Verified 03/31/20 11:31) mycins Allergy (Severe, Uncoded 03/31/20 11:31) Hives PPD Allergy (Severe, Uncoded 03/31/20 11:31) Cardiac arrest Past Medical History - Social History Smoking Status: Unknown if Ever Smoked Family History: Reviewed & Not Pertinent Patient has homicidal ideation: No - Past Medical History Cardiac Medical History: Reports: Hx Atrial Fibrillation, Hx Congestive Heart Failure, Hx Heart Attack - Age 26, Hx Hypercholesterolemia, Hx Hypertension Pulmonary Medical History: Reports: Hx Asthma, Hx Bronchitis, Hx COPD, Hx Pneumonia - yrs ago Neurological Medical History: Reports: Hx Cerebrovascular Accident - Age 26 (Mini) Renal/ Medical History: Reports: Hx Kidney Stones. Denies: Hx Peritoneal Dialysis GI Medical History: Reports: Hx Diverticulitis Musculoskeletal Medical History: Reports Hx Arthritis - Legs & Back Past Surgical History: Reports: Hx Abdominal Surgery - exploratory, Hx Appendectomy, Hx Section, Hx Cholecystectomy, Hx Hysterectomy, Hx Tonsillectomy, Hx Tubal Ligation, Other - Several exploratory surgeries of the abdomen. - Immunizations Immunizations up to date: Yes Hx Diphtheria, Pertussis, Tetanus Vaccination: Yes Hx Pneumococcal Vaccination: 03/04/17 Review of Systems - Review of Systems Notes: REVIEW OF SYSTEMS GEN: Denies fever, chills, weight loss ENT: Denies sore throat, nasal discharge, ear pain EYES: Denies blurry vision, eye pain, discharge CV: Denies chest pain, palpitations, edema RESP: Denies cough, shortness of breath, wheezing GI: Denies abdominal pain, nausea, vomiting, diarrhea MSK: Right shoulder pain right knee pain SKIN: Denies rash, skin lesions LYMPH: Denies swollen glands/lymph nodes NEURO: Denies headache, focal weakness or numbness, dizziness PSYCH: Denies depression, suicidal or homicidal ideation PHYSICAL EXAMINATION General: No acute distress, well-nourished Head: Atraumatic, normocephalic ENT: Mouth normal, oropharynx moist, no exudates or tonsillar enlargement Eyes: Conjunctiva normal, pupils equal, lids normal Neck: No JVD, supple, no guarding CVS: Normal rate, regular rhythm, no murmurs Resp: No resp distress, equal and normal breath sounds bilaterally GI: Nondistended, soft, no tenderness to palpation, no rebound or guarding Ext: Mild pain on range of motion of the right knee with mild crepitus, but no effusion. Pitting edema to both legs 1+ to the toes to the knees. Xt Back: No CVA or midline TTP Skin: No rash, warm Lymphatic: No lymphadeopathy noted Neuro: Awake, alert. Face symmetric. GCS 15. Physical Exam - Vital signs Vitals: Temp Pulse Resp BP Pulse Ox 97.4 F 122 H 18 135/72 H 96 03/31/20 10:39 03/31/20 10:39 03/31/20 10:39 03/31/20 10:39 03/31/20 10:39 Course - Re-evaluation Re-evalutation: 03/31/20 13:08 Patient presents with arthritis and exacerbation of chronic joint pain without acute signs of fracture dislocation or infection She has some mild hypoxia is not on home oxygen and has some pitting edema raising a suspicion for COPD or CHF exacerbation but she is adamantly refusing lab draws or further work-up and is asking for food. Counseled on risks. Discharged home and will encouraged to follow-up with primary care which she needs to establish. S I have discussed with the patient there likely diagnosis, aftercare plan, follow-up plans and my usual and customary return precautions. They verbalized understanding of this. E 03/31/20 13:27 Patient incidentally noted to have new onset A. fib with tachycardia and mild hypoxia. After a very lengthy conversation she still against any blood draws or labs says she is doing fine on her own is not 1 to be admitted or further worked up. We had a long talk during which we reach an understanding. She was not asked to sign out AMA, but it was clear between our conversation that this was not recommended and she did understand the risks. - Vital Signs Vital signs: Temp Pulse Resp BP Pulse Ox 97.4 F 114 H 22 H 127/77 H 94 03/31/20 10:39 03/31/20 11:41 03/31/20 13:01 03/31/20 13:01 03/31/20 13:01 - Diagnostic Test Radiology reviewed: Image reviewed, Reports reviewed - EKG Interpretation by Me EKG shows normal: Sinus rhythm Rate: Normal, Tachycardia Rhythm: A.Fib When compared to previous EKG there are: Previous EKG unavailable - Irregular No ST or T wave changes Discharge - Discharge Clinical Impression: Osteoarthritis Qualifiers: Osteoarthritis location: unspecified site Osteoarthritis type: unspecified Qualified Code(s): M19.90 - Unspecified osteoarthritis, unspecified site Atrial fibrillation Qualifiers: Atrial fibrillation type: unspecified Qualified Code(s): I48.91 - Unspecified atrial fibrillation Condition: Fair Disposition: HOME, SELF-CARE Instructions: Sprained Knee ([facility]) Additional Instructions: It is crucial you follow-up with your regular doctor within a few days. He wanted to do some testing on your heart and lungs today but you have refused Please return to the ER if you change her mind. Prescriptions: Aspirin [Aspirin 81 mg Chewable Tablet] 81 mg PO DAILY #1 pkg Referrals: SKINNY YEPEZ MD [Primary Care Provider] - Follow up as needed WHITNEY BEAUCHAMP MD [COMMUNITY BASED STAFF] - Follow up in 3-5 days
[2020-03-31 13:27] VITALS: BP 127/77
== END 2020-03-31 13:27 | disposition home or self-care (01) ==
LOC: ER 10:29
DX: I48.91 Unspecified atrial fibrillation (principal); M19.90 Unspecified osteoarthritis, unspecified site; M25.511 Pain in right shoulder; M25.561 Pain in right knee; M54.9 Dorsalgia, unspecified; G89.29 Other chronic pain; J44.9 Chronic obstructive pulmonary disease, unspecified; Z88.0 Allergy status to penicillin; Z88.8 Allergy status to other drugs, medicaments and biological substances; I11.0 Hypertensive heart disease with heart failure; I50.9 Heart failure, unspecified; I25.2 Old myocardial infarction
CPT/HCPCS: 71046; 93005; 93010; 99284